=== PATIENT | male | born 1975 | race Caucasian/White ===

== ENCOUNTER 2021-12-11 14:38 | Outpatient (CLI) | payer OTHER, SELFPAY ==
[2021-12-11 17:11] LABS: Chloride* 105 mmol/L (96-114); Sodium* 141 mmol/L (135-149)
[2021-12-11 17:12] LABS: Potassium* 4.3 mmol/L (3.6-5.1)
[2021-12-11 17:14] LABS: Blood Urea Nitrogen* 16 mg/dL (5-24); Carbon Dioxide* 25 mmol/L (20-32); Creatinine* 1.1 mg/dL (0.5-1.5); Estimated Glomerular Filt Rate 84 ml/min
[2021-12-11 17:15] LABS: Calcium* 9.2 mg/dL (8.4-10.6); Glucose* 81 mg/dL (60-115)
== END 2021-12-11 14:39 | disposition home or self-care (01) ==
LOC: NFLDREF 14:39
PROVIDERS: Visit Provider Family Medicine
DX: Z01.818 Encounter for other preprocedural examination (principal)
CPT/HCPCS: 80048

== ENCOUNTER 2021-12-25 11:57 | Outpatient (REF) | payer OTHER, SELFPAY ==
[2021-12-25 13:01] LABS: SARS PCR* POSITIVE SARS-CoV-2 (Negative)
== END 2021-12-25 11:58 | disposition home or self-care (01) ==
LOC: NPINS 11:57
PROVIDERS: Visit Provider Podiatrist
DX: Z11.52 Encounter for screening for COVID-19 (principal)
CPT/HCPCS: 87635

== ENCOUNTER 2022-02-02 19:40 | Emergency (ER) | payer OTHER, SELFPAY ==
[2022-02-02 19:48] VITALS: BP 131/82; PULSE 100; RESP 18; TEMP 36.3; O2SAT 96
--- NOTE | 2022-02-02 20:02 | ED.GENADULT ---
HPI - General Adult General Chief complaint: Post Op Complication Stated complaint: INFECTED STERI STRIP - POST BACK SURGERY Time Seen by Provider: 02/02/22 19:42 History of Present Illness HPI narrative: Pt is a 47 year old gentleman who had back surgery 12 days ago with both anterior and posterior approach complicated by a CVA postoperatively necessitating a thrombectomy and subsequent aspirin 81 mg daily initiation presents with mild redness at both the anterior and posterior incision sites on his torso. Pt had an implanted pain pump placed to the right of the midline in the last few days with no redness noted. Pt has had only mild redness. No observed swelling. No drainage. No increased pain. No fever, nausea or vomiting. No issues with the sutures/margot. Pt otherwise feeling fine . Related Data Home Medications Medication Instructions Recorded Confirmed dextroamphetamine-amphetamine ER 20 mg PO QDAY 12/10/21 01/05/22 20 mg 24hr capsule,extend release divalproex 250 mg tablet,extended 250 mg PO DAILY 12/10/21 01/05/22 release 24 hr hydroxyzine pamoate 25 mg capsule 25 - 50 mg PO Q6H PRN 12/10/21 01/05/22 cyclobenzaprine 10 mg tablet 10 mg PO TID 12/11/21 01/05/22 tizanidine 2 mg tablet 2 mg PO TID PRN 12/11/21 01/05/22 Previous Rx's Medication Instructions Recorded hydrocodone 10 mg-acetaminophen 1 tab PO BID PRN pain #40 tabs 12/11/21 325 mg tablet Allergies Allergy/AdvReac Type Severity Reaction Status Date / Time No Known Drug Allergies Allergy Verified 01/05/22 11:34 Review of Systems Status of ROS: Reports: 10 or more systems reviewed and unremarkable except as noted in History and below [facility] Medical History Attention deficit hyperactivity disorder (ADHD) Chronic low back pain Knee pain Narcotic dependence Pilonidal cyst with abscess Posttraumatic stress disorder Suicidal ideation Surgical History History of hernia repair History of knee surgery History of spinal surgery History of tonsillectomy Family History Father Acute myocardial infarction Other Heart disease Social History Narrative: Retired, nonsmoker, Marijuana use Smoking Status: Current every day smoker Exam Narrative: Exam Narrative: EXAM GENERAL: Patient appears comfortable and well. EYES: No scleral icterus. ENT: Tympanic membranes and oropharynx normal. THYROID: no thyroid nodules or thyromegaly. LYMPH: No supraclavicular or cervical lymphadenopathy. SKIN: Both incision sites on the thorax are well approximated with no redness or drainage. There does appear to be a small seroma underlying the incision on the posterior incision site. This is not painful and seems to be very localized. No drainage noted. EXT: No dependent lower extremity pedal edema. HEART: Regular rate and rhythm with no murmurs, rubs, or gallops. LUNGS: Clear to auscultation bilaterally with no crackles or wheezes. ABD: Soft, non tender, non distended. PSYCH: Good eye contact, speech is not pressured. Const: Vital Signs, click to edit/add: Vital Signs - 24 hr 02/02/22 19:48 Temperature 97.4 F L Pulse Rate [Left P ulse Oximeter] 100 Respiratory Rate 18 Blood Pressure [Ri ght Upper Arm] 131/82 Pulse Oximetry 96 Oxygen Delivery Me thod Room Air Course Course Hospital Course: Pt seen and examined. Explained to pt and sig other that I do not see any major signs of infection. Vital Signs Vital signs: Initial Vital Signs Temperature 97.4 F L 02/02/22 19:48 Temperature Source Temporal Artery Scan 02/02/22 19:48 Pulse Rate 100 02/02/22 19:48 Pulse Rhythm 02/02/22 19:48 Pulse Strength 0+ Absent 02/02/22 19:48 Respiratory Rate 18 02/02/22 19:48 Blood Pressure 131/82 02/02/22 19:48 Blood Pressure Mean 98 02/02/22 19:48 Blood Pressure Position Sitting 02/02/22 19:48 Pulse Oximetry 96 02/02/22 19:48 Oxygen Delivery Method 02/02/22 19:48 Vital Signs Temperature 97.4 F L 02/02/22 19:48 Pulse Rate 100 02/02/22 19:48 Respiratory Rate 18 02/02/22 19:48 Blood Pressure 131/82 02/02/22 19:48 Pulse Oximetry 96 02/02/22 19:48 Oxygen Delivery Method 02/02/22 19:48 Temperature 97.4 F L 02/02/22 19:48 Pulse Rate 100 02/02/22 19:48 Respiratory Rate 18 02/02/22 19:48 Blood Pressure 131/82 02/02/22 19:48 Pulse Oximetry 96 02/02/22 19:48 Oxygen Delivery Method 02/02/22 19:48 Medical Decision Making MDM Narrative Medical decision making narrative: Pt presents with concern of wound infection. No infective findings seen on exam. Small seroma palpated posteriorly. No drainage. Otherwise normal exam and vital signs. Reassurance offered with return if new symptoms develop. Otherwise pt will keep outpt follow up with surgeon and plan to continue current cares. Differential Diagnosis Differential Diagnosis: Wound infection, normal healing, seroma, surgical complication, cellulitis Discharge Plan Discharge Clinical Impression: Healing wound Patient Disposition: Home, Self-Care Condition: Stable Additional Instructions: Continue current care Follow up with your doctor as scheduled Activity Level: Activity as Tolerated Discharge Diet: Regular Prescriptions: No Action divalproex 250 mg tablet extended release 24 hr 250 mg PO DAILY dextroamphetamine-amphetamine 20 mg capsule,extended release 24hr 20 mg PO QDAY hydroxyzine pamoate 25 mg capsule 25 - 50 mg PO Q6H PRN tizanidine 2 mg tablet 2 mg PO TID PRN cyclobenzaprine 10 mg tablet 10 mg PO TID hydrocodone-acetaminophen 10-325 mg tablet 1 tab PO BID PRN (Reason: pain) Qty: 40 0RF Follow Up/Referrals: Generic,Amb Provider [Primary Care Provider] - Stand Alone Forms: [facility] Info Instructions
== END 2022-02-02 20:20 | disposition home or self-care (01) ==
PROVIDERS: Emergency Provider Internal Medicine
DX: L76.34 Postprocedural seroma of skin and subcutaneous tissue following other procedure (principal)
CPT/HCPCS: 99283

== ENCOUNTER 2022-03-11 09:08 | Outpatient (CLI) | payer OTHER, SELFPAY ==
--- OUTSIDE RECORDS SUMMARY | 2022-03-11 09:11 | XMS_ITS | Continuity of Care Document ---
:1975 Author Organization [facility] Address [place] [address] [place] [address]- Encounter 06/29/21 - 07/01/21 [facility] [address] [place] [address] [address] [place], [place] [address] Encounter Diagnosis DDD (degenerative disc disease), lumbar (Discharge Diagnosis) - 06/29/21 Attending Physician: Miguel A Ryan MD Allergies, Adverse Reactions, Alerts No Known Medication Allergies Assessment and Plan Extracted from: Title: Consult Note Author: Miguel A Ryan MD Date: 06/29/21 1.??DDD (degenerative disc disease), vishnu mbar??(M51.36) Ending??CTA is. ??The risk benefits com plications of surgical [facility] reviewed at length??today with??Drake. ??3 level spinal fusion exposure will be undertaken??the desired time. Ordered: 09145 office o/p new hi 60-74 min (Aurelia ge), Quantity: 1, DDD (degenerative disc disease), lumbar ?? Medications No Known Medications Problem List Condition Effective Dates Status Health Status Informant Anxiety(Confirmed) Active ADHD (attention deficit hyperactivity Active disorder)(Confirmed) Chronic low back pain(Confirmed) Active Lumbar radiculopathy(Confirmed) Active Lumbar disc herniation(Confirmed) 2007 Active Spinal stenosis of lumbar region with Active neurogenic claudication(Confirmed) Diagnosis Diagnosis Type Effective Dates Health Status Clinical In formant Service DDD Discharge 06/29/21 (degenerative Diagnosis disc disease), lumbar Procedures Procedure Date Related Diagnosis Body Site Status History of lumbar laminectomy Completed Nerve stimulator Completed
--- OUTSIDE RECORDS SUMMARY | 2022-03-11 09:11 | XMS_ITS | Continuity of Care Document ---
:1975 Author Organization [facility] Address [place] [id number] [facility], [place] [address] [place] [id number] Encounter 08/14/21 - 08/21/21 [facility] [address] [place] [id number] Allergies, Adverse Reactions, Alerts No Known Medication Allergies Problem List Condition Effective Dates Status Health Status Informant Anxiety(Confirmed) Active ADHD (attention deficit hyperactivity Active disorder)(Confirmed) Chronic low back pain(Confirmed) Active Lumbar radiculopathy(Confirmed) Active Lumbar disc herniation(Confirmed) 2006 Active Spinal stenosis of lumbar region with Active neurogenic claudication(Confirmed) Procedures Procedure Date Related Diagnosis Body Site Status History of lumbar laminectomy Completed Nerve stimulator Completed
[2022-03-11 10:09] LABS: Carboxyhemoglobin* 8.5 % (0.0-5.0)
== END 2022-03-11 09:09 | disposition home or self-care (01) ==
LOC: FBOREF 09:09
PROVIDERS: Visit Provider Family Medicine
DX: T58.91XA Toxic effect of carbon monoxide from unspecified source, accidental (unintentional), initial encounter (principal)
CPT/HCPCS: 82375

== ENCOUNTER 2022-09-12 01:23 | Emergency (ER) | payer OTHER, SELFPAY ==
[2022-09-12 01:33] VITALS: BP 120/71; PULSE 100; RESP 18; TEMP 36.1; O2SAT 95
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
[2022-09-12] MEDS: OxyCODONE/APAP 5-325 TABLET 2 TAB PO (02:01)
--- NOTE | 2022-09-12 03:39 | ED.NURSE ---
pt placed on hospital paper scrubs and socks. pt ambulated to restroom with out incident.
[2022-09-12] MEDS: FAMOTIDINE 20 MG TABLET 40 MG PO (03:49)
[2022-09-12 03:55] VITALS: BP 126/71; PULSE 92; RESP 16; O2SAT 99
== END 2022-09-12 03:57 ==
PROVIDERS: Emergency Provider Family Medicine; PCP Family Medicine
DX: M54.30 Sciatica, unspecified side (principal); M54.50 Low back pain, unspecified; T14.8XXA Other injury of unspecified body region, initial encounter
CPT/HCPCS: 72100; 73660; 99284; A9270

== ENCOUNTER 2023-04-26 12:28 | Outpatient (CLI) | payer OTHER, SELFPAY ==
--- OUTSIDE RECORDS SUMMARY | 2023-04-26 12:46 | XMS_ITS | Continuity of Care Document ---
Author Name [facility] Organization [facility] Care Team Providers Care Tax Specialist Name Role Phone [facility] Unavailable Unavailable Problems Combined list of problems from Department of Defense and Veterans Affairs facilities. It does not include entries that were removed or entered in error. Problem Status Onset Date Problem Type Date of Resolution Comments Source Adult attention deficit hyperactivity disorder Active Condition [facility] Anxiety Active Condition [facility] Arthropathy of lumbar facet joint Active Condition September 01, 2015 Entered By: ADRI BURDICK Comment: 05/26 MRI: mild L2-4 mod L4-S1 [facility] Astigmatism, regular (ICD-9-CM 367.21) Active Condition [facility] Attention deficit hyperactivity disorder, predominantly inattentive type Active Condition [facility] Benign essential hypertension [facility] Bipolar II disorder Active Condition Jul 17, 2020 Entered By: SHWETHA SALGADO Comment: Depressed Phase [facility] Cannabis Dependence-Episod ic Active Condition [facility] Carpal tunnel syndrome (SNOMED CT 19710347) [facility] Condition [facility] Cerebrovascular accident Active Condition Jun 24, 2022 Entered By: MELVI WINSTON Comment: acute ischemic stroke while hospitalized for lumbar spinal fusion [facility] Chronic pain syndrome Active Condition 01/19/2018 [facility] Degeneration of lumbar intervertebral disc Active Condition September 01, 2015 Entered By: ADRI BURDICK Comment: 05/26 MRI L3-4 and L4-5 moderate bilat N.F.; L5-S1 mild left N.FJul 2016 Entered By: ADRI BURDICK Comment: 06/25 MRI HNP L2-3 and L3-4 with mod left N.F and mild right N.F, disc bulge L4-5 with mod bilateral N.F. and facet at L5-S1 with mod right N.F.Jul 20, 2016 Entered By: ADRI BURDICK Comment: 07/26 epiduralJul 2018 Entered By: ADRI BURDICK Comment: 06/26 Lumbar spinal stimulator, [facility], Cat Prabhakar 2018 Entered By: ADRI BURDICK Comment: 01/26 stimulator help baseline pain but not flare ups [facility] Depressive disorder Active Condition [facility] Dyspnea on exertion Active Condition [facility] Ganglion cyst removal, left hand, 2018, [facility] Active Condition [facility] History of alcohol abuse (SNOMED CT 495022901) Active Condition [facility] History of lumbar fusion Active Condition Jun 24, 2022 Entered By: MELVI WINSTON Comment: done in Jan 2022, lumbar fusion and laminectomy [facility] Hyperopia * (ICD-9-CM 367.0) Active Condition [facility] L3-4 and L4-5 laminectomy for lumbar spinal stenosis, 2007 Active Condition Apr 05, 2013 Entered By: ADRI BURDICK Comment: MRI 2011 no further stenosis or nerve impingment [facility] Lumbar Radiculopathy (ICD-9-CM 724.4) Active Condition [facility] Medial collateral ligament surgery, 2006 Active Condition [facility] Mixed hyperlipidemia Active Condition [facility] Obesity (SNOMED CT 621696694) Active Condition [facility] Obstructive Sleep Apnea of Adult (SCT 4225617889641) Active Condition August 31, 2022 Entered By: LATHA BURNS Comment: resmed airsense s10 CPAP 13 =, N20 [facility] Obstructive sleep apnea syndrome Active Condition Apr 05, 2013 Entered By: ADRI BURDICK Comment: cpap [facility] OIF EXPOSURE TO DEPLETED URANIUM (MIA1 LORD TANKS/TANK GRAVEYARDS) Active Condition [facility] OIF EXPOSURE TO IED EXPLOSION (FALLUJAH, [place] 2004) Active Condition [facility] OIF EXPOSURE TO JUAN CARLOS-8 FUEL Active Condition [facility] OIF EXPOSURE TO OPEN BURN PIT SMOKE Active Condition [facility] OIF EXPOSURE TO SANDSTORMS AND DUSTSTORMS Active Condition [facility] Other Signs and Symptoms Involving Cognition Active Condition [facility] Outbursts of anger Active Condition [facility] Pain, Lower Back [facility] Partner relationship problem Active Condition [facility] Post-traumatic stress disorder Active Condition [facility] Posttraumatic stress disorder (SNOMED CT 61277324) Active Condition [facility] Pre-Op Exam Active Condition [facility] Sensorineural hearing loss Active Condition [facility] Sexual Dysfunction Active Condition [facility] Solitary nodule of lung Active Condition Jan 24, 2018 Entered By: ADRI BURDICK Comment: 01/26 CT 4mm right lung apex, 3mm ELZA and 2mm LLL; f/u 1 2018 Entered By: ADRI BURDICK Comment: 01/27 CT stable [facility] Spinal stenosis of lumbar region Active Condition August 31 6 Entered By: ADRI BURDICK Comment: 05/26 MRI moderate L2-3 from disc degeneration [facility] Spinal Stenosis, Lumbar Active Condition [facility] Tinnitus Active Condition [facility] Tobacco use (SNOMED CT 600156610) Active Condition Apr 05, 2013 Entered By: ADRI BURDICK Comment: 2011 [place] nancy and chantix, dc'd due to dreams [facility] anxiety Active Condition [facility] astigmatism regular Active Condition [facility] acquired deformity of hip Active Condition [facility] leukocytosis Active Condition [facility] benzodiazepine withdrawal Active Condition [facility] blurry vision Active Condition [facility] headache syndromes Inactive Condition [facility] visit for: issue repeat prescription for medication Inactive Condition [facility] nonorganic sleep apnea obstructive Active Condition [facility] Aftercare Orthopedic Active Condition [facility] muscle spasm Inactive Condition [facility] Aftercare Following Surgery Active Condition [facility] visit for: administrative purpose Inactive Condition [facility] Patient Education Dietary Inactive Condition [facility] visit for: preoperative orthopedic exam Inactive Condition [facility] visit for: follow-up exam Inactive Condition [facility] knee sprain medial collateral ligament Inactive Condition [facility] mood disorder due to general medical condition Active Condition [facility] numbness (hypesthesia) Active Condition [facility] Brace Inactive Condition [facility] joint pain, localized in the knee Active Condition [facility] partner relational problem Active Condition [facility] occupational problem Inactive Condition [facility] chronic post-traumatic stress disorder Active Condition [facility] major depression, single episode Active Condition [facility] esophageal reflux Active Condition f/u prn DoD intervertebral disc degeneration - lumbar Active Condition This pt has a definite problem but I do not feel I can make him better with surgery. I am concerned about his age and multilevel nature of his problem. 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 Surgery is not an option by me. P3 given and MEB initiated. DoD visit for: fitting and adjustment of device Inactive Condition [facility] hyperlipidemia Active Condition f/vishnu in 4-6 weeks for repeat lipids. DoD chest pain Active Condition [facility] tinnitus both ears Active Condition [facility] sensorineural hearing loss asymmetrical Active Condition AD>: AD moder ate 4-6 KHz, mild 4 KHz: pattern AU c/w NIHL; normal ME Fx AU; Excellent word recognition AU; H2 profile; DPOAEs c/w audio and cochlear OHC deficit, which is probable etiology of tinnitus DoD anxiety disorder NOS Active Condition (with PTSD raj ts), however he does not meet full criteria to warrant this Dx at this time.SM reported that he tends to have intrusive thoughts such as nightmares of war-time experiences, which causes him to wake up sweating and some distress. SM reported that he feels more irritable than usual, avoid the right héctor and would drive in the middle of the highway (reported that this action has decreased), a decrease in sleep (which began in [place]), difficulty concentrating, and an increase in feelings of sadness. DoD heartburn Active Condition f/u prn DoD refractive error - hypermetropia Active Condition [facility]D hearing loss Active Condition TSGLI p aperwork completed for multiple exposures and HFNSHL documented in June 2006. DoD radiculopathy Active Condition DoD urinary frequency more than twice at night (nocturia) Active Condition DoD male erectile disorder Active Condition DoD insomnia Active Condition will make no changes suchs as adding TCA due to use of valium and percocet. Will consider change once seen by pain mgmt. DoD nicotine dependence Active Condition not interested at present. DoD discogenic syndrome Active Condition Discussed TABATHA f or painPlan for LESIPt to have call to discuss procedurePt may need discogram. Will do if NS requests DoD hypertension systemic Active Condition DoD lumbago Active Condition DoD assess patient condition work-related occupational disease Inactive Condition DoD depression Active Condition increased to 150 mg qd DoD visit for: exam following treatment Inactive Condition DoD backache Active Condition DoD Other Physical Therapy Active Condition [facility] assessment of patient condition work-related Active Condition [facility] visit for: physical medical evaluation board (MEB) Active Condition DoD joint pain fingers Active Condition [facility] Occupational Therapy Inactive Condition [facility] Need For Vaccination Against Influenza Inactive Condition DoD visit for: screening exam pulmonary tuberculosis Inactive Condition DoD Blood Pressure Isolated Elevated Inactive Condition f/u in 2 w eeks. Pt reports several months of elevated BP. DoD phase of life or life circumstance problem Active Condition [facility] assessment of patient condition work status Inactive Condition DoD visit for: screening mental / developmental disorders Inactive Condition TBI REVIEWED AN D NEG DoD visit for: services physical Active Condition [facility] Patient Education Active Condition DoD nicotine dependence continuous Active Condition DoD lower back pain Active Condition DoD spinal stenosis Active Condition L3-4 and L4-5 DoD lumbar radiculopathy Active Condition Consult for [facility] Pain managment to eval for Spinal Cord StimulatorLidoderm patch NDR request madeConsider inc lyricaConsider LA opioid based on perocet demandPt to f/u with PCM for continued care DoD herniated intervertebral disc lumbar Active Condition DoD intervertebral disc degeneration Active Condition continue w ith diazepam, mobic, lidoderm patch, mobic, and lyrica. DoD herniated intervertebral disc Active Condition pt being seen a t [facility], has received injections and nerve block; Will return on 01 November 2006, may get spinal stimulator. DoD tendonitis extensor hallucis longus right Active Condition pt unable to tolerated ibuprofen due to GI effects after 1-2 doses. DoD carpal tunnel syndrome Active Condition f/u prn. OT con sult placed. DoD visit for: issue repeat prescription Inactive Condition DoD dermatophytosis tinea pedis Inactive Condition keep feet dry DoD callus Active Condition [facility] Diagnosis: ICD-10-CM Z23 Encounter for immunization Active Diagnosis [facility] Diagnosis: ICD-10-CM Z98.1 Arthrodesis status Active Diagnosis [facility] Diagnosis: ICD-10-CM S84.12XS Injury of peroneal nrv at lower leg level, left leg, sequela Active Diagnosis [facility] Diagnosis: ICD-10-CM F43.10 Post-traumatic stress disorder, unspecified Active Diagnosis [facility] Diagnosis: ICD-10-CM M51.17 Intvrt disc disorders w radiculopathy, lumbosacral region Active Diagnosis [facility] Diagnosis: ICD-10-CM M54.50 Low back pain, unspecified Active Diagnosis [facility] Diagnosis: ICD-10-CM G47.33 Obstructive sleep apnea (adult) (pediatric) Active Diagnosis [facility] Diagnosis: ICD-10-CM E66.9 Obesity, unspecified Active Diagnosis [facility] Diagnosis: ICD-10-CM I63.9 Cerebral infarction, unspecified Active Diagnosis [facility] Diagnosis: ICD-10-CM M25.512 Pain in left shoulder Active Diagnosis [facility] Diagnosis: ICD-10-CM M54.59 Other low back pain Active Diagnosis [facility] Diagnosis: ICD-10-CM F41.9 Anxiety disorder, unspecified Active Diagnosis [facility] Medications Combined list of outpatient medications from Department of Defense and Veterans Affairs facilities.Medications provided include 1) outpatient medications from the last 15 months, and 2) patient-reported medications. Medication Details Route Status Patient Instructions Prescription Expires Prescription Number Last Dispense Date Ordering Provider Order Date Source ACETAMINOPH EN 500MG TAB TAKE TWO TABLETS BY MOUTH Q6H PRN ORALLY ACTIVE CATRACHITOMALIK 2022 [facility] Alkets or Eq. Tablet Chewable 500 mg Oral CHEW ONE TABLET BY MOUTH TWICE A DAY FOR CALCIUM SUPPLEME NT Active 06/25/2023 [id number] MELVI WINSTON 2023 [facility] Amphetamine Aspartate 7.5mg + Amphetamine Sulfate 7.5mg + Dextroamphe tamine Sulfate 7.5mg + Dextroamphe tamine saccharate 7.5mg, Tablet, Oral TAKE ONE TABLET BY MOUTH TWICE A DAY FOR ATTENTIO N 02/09/2023 [id number] 3 OMER KLINE 2022 [facility] Amphetamine Aspartate 7.5mg + Amphetamine Sulfate 7.5mg + Dextroamphe tamine Sulfate 7.5mg + Dextroamphe tamine saccharate 7.5mg, Tablet, Oral TAKE ONE TABLET BY MOUTH TWICE A DAY FOR ATTENTIO N Discont inued 01/15/2023 [id number] 3 OMER KLINE 2022 [facility] Amphetamine Aspartate 7.5mg + Amphetamine Sulfate 7.5mg + Dextroamphe tamine Sulfate 7.5mg + Dextroamphe tamine saccharate 7.5mg, Tablet, Oral TAKE ONE TABLET BY MOUTH TWICE A DAY FOR ATTENTIO N 12/22/2022 [id number] ALLYSON MORALES 2022 [facility] AMPHETAMINE /DEXTROAMPH ETAMINE 30MG TAB TAKE ONE TABLET BY MOUTH TWICE A DAY FOR ATTENTIO N ORALLY DISCONT INUED 02/09/2023 [id number] 3 CLARIBEL TRAORE 2022 [facility] AMPHETAMINE /DEXTROAMPH ETAMINE 30MG TAB TAKE ONE TABLET BY MOUTH TWICE A DAY FOR ATTENTIO N ORALLY DISCONT INUED 01/15/2023 [id number] CLARIBEL TRAORE 2022 [facility] AMPHETAMINE /DEXTROAMPH ETAMINE 30MG TAB TAKE ONE TABLET BY MOUTH TWICE A DAY FOR ATTENTIO N ORALLY DISCONT INUED 12/22/2022 [id number] ALLYSON MORALES 2022 [facility] AMPHETAMINE /DEXTROAMPH ETAMINE 30MG TAB TAKE ONE TABLET BY MOUTH TWICE A DAY ORALLY DISCONT INUED 09/22/2022 [id number] KALEIGH AMAYA 2022 [facility] AMPHETAMINE /DEXTROAMPH ETAMINE 30MG TAB TAKE ONE TABLET BY MOUTH TWICE A DAY FOR ATTENTIO N ORALLY 11/19/2022 [id number] CLARIBEL TRAORE 2022 [facility] AMPHETAMINE /DEXTROAMPH ETAMINE 30MG TAB TAKE ONE TABLET BY MOUTH TWICE A DAY FOR ATTENTIO N ORALLY 10/15/2022 [id number] CLARIBEL TRAORE 2022 [facility] AMPHETAMINE /DEXTROAMPH ETAMINE 30MG TAB TAKE ONE TABLET BY MOUTH TWICE A DAY ORALLY 08/08/2022 [id number] CLARIBEL TRAORE 2022 [facility] AMPHETAMINE /DEXTROAMPH ETAMINE 30MG TAB TAKE ONE TABLET BY MOUTH TWICE A DAY ORALLY 06/19/2022 [id number] CLARIBEL TRAORE 2022 [facility] ASPIRIN 81MG TAB,EC TAKE ONE TABLET BY MOUTH EVERY DAY FOR ISCHEMIC STROKE DO NOT CHEW ORALLY SUSPEND ED 12/16/2023 [id number] MARK BRIGGS A 2022 [facility] ASPIRIN 81MG TAB,EC TAKE ONE TABLET BY MOUTH EVERY DAY FOR ISCHEMIC STROKE DO NOT CHEW ORALLY DISCONT INUED 06/25/2023 [id number] MALIK WINSTON 2022 [facility] ASPIRIN EC (U/D) 81 MG ORAL TBEC TAKE ONE TABLET BY MOUTH EVERY DAY FOR ISCHEMIC STROKE DO NOT CHEW Active 12/16/2023 [id number] ISREAL BRIGGS 2023 [facility] ASPIRIN EC (U/D) 81 MG ORAL TBEC TAKE ONE TABLET BY MOUTH EVERY DAY FOR ISCHEMIC STROKE DO NOT CHEW Active 12/16/2023 [id number] 3 ISREAL BRIGGS 2022 [facility] ASPIRIN EC (U/D) 81 MG ORAL TBEC TAKE ONE TABLET BY MOUTH EVERY DAY FOR ISCHEMIC STROKE DO NOT CHEW Discont inued 06/25/2023 [id number] MELVI WINSTON 2022 [facility] ASPIRIN EC (U/D) 81 MG ORAL TBEC TAKE ONE TABLET BY MOUTH EVERY DAY FOR ISCHEMIC STROKE DO NOT CHEW Active 06/25/2023 [id number] MELVI WINSTON 2022 [facility] atorvastati n (U/D) 80 MG ORAL TAB TAKE ONE TABLET BY MOUTH AT BEDTIME FOR CHOLESTE ROL Active 06/25/2023 [id number] 4 MELVI WINSTON 2023 [facility] ATORVASTATI N CA 80MG TAB TAKE ONE TABLET BY MOUTH AT BEDTIME FOR CHOLESTE ROL ORALLY ACTIVE 06/25/2023 [id number] MALIK WINSTON 2022 [facility] Baclofen (Lioresal) Tablet 10 mg Oral TAKE ONE TABLET BY MOUTH TWICE A DAY FOR MUSCLE SPASMS Active 12/16/2023 [id number] 4 ISREAL BRIGGS 2023 [facility] BACLOFEN 10MG TAB TAKE ONE TABLET BY MOUTH TWICE A DAY FOR MUSCLE SPASMS ORALLY SUSPEND ED 12/16/2023 [id number] 4 MARK BRIGGS ER A 2022 [facility] BACLOFEN 10MG TAB TAKE ONE TABLET BY MOUTH THREE TIMES A DAY NEEDED ORALLY ACTIVE MALIK WINSTON 2021 [facility] BISACODYL 5MG TAB,EC TAKE TWO TABLETS BY MOUTH DIRECTED FOR COLON PREP ORALLY 08/08/2022 [id number] 3 RAFI OMSLEY TTANY L 2022 [facility] buPROPion (ZYBAN EQ) 150 MG ORAL TB12 TAKE ONE TABLET BY MOUTH TWICE A DAY FOR WEIGHT LOSS Active 11/05/2023 [id number] 3 NICOLASA HULL 2022 [facility] buPROPion (ZYBAN EQ) 150 MG ORAL TB12 TAKE ONE TABLET BY MOUTH EVERY DAY FOR 3 DAYS, THEN TAKE ONE TABLET TWICE A DAY FOR WEIGHT LOSS Discont inued 11/05/2023 [id number] 3 NICOLASA HULL 2022 [facility] BUPROPION HCL 150MG 12HR TAB,SA TAKE ONE TABLET BY MOUTH TWICE A DAY FOR WEIGHT LOSS ORALLY ACTIVE 11/05/2023 [id number] 3 NICOLASA HULL 2022 [facility] BUPROPION HCL 150MG 12HR TAB,SA TAKE ONE TABLET BY MOUTH EVERY DAY FOR 3 DAYS, THEN TAKE ONE TABLET TWICE A DAY FOR WEIGHT LOSS ORALLY DISCONT INUED 11/05/2023 [id number] 3 NICOLASA HULL 2022 [facility] CALCIUM CARBONATE 500MG TAB,CHEWABL E CHEW ONE TABLET BY MOUTH TWICE A DAY FOR CALCIUM SUPPLEME NT ORALLY ACTIVE 06/25/2023 [id number] MALIK WINSTON 2022 [facility] CHOLECALCIF (VIT D3) 1,000 UNIT ORAL TAB TAKE ONE TABLET BY MOUTH EVERY DAY FOR VITAMIN D Active 06/25/2023 [id number] 4 MELVI WINSTON 2023 [facility] CHOLECALCIF JET 25MCG (1,000UNIT) TAB TAKE ONE TABLET BY MOUTH EVERY DAY FOR VITAMIN D ORALLY ACTIVE 06/25/2023 [id number] MALIK WINSTON NA 2022 [facility] DIVALPROEX NA 500MG TAB,SA TAKE TWO TABLETS BY MOUTH AT BEDTIME FOR MOOD ORALLY ACTIVE 07/10/2023 [id number] CLARIBEL TRAORE 2022 [facility] DIVALPROEX NA 500MG TAB,SA TAKE TWO TABLETS BY MOUTH AT BEDTIME FOR MOOD ORALLY DISCONT INUED 12/08/2022 [id number] CLARIBEL TRAORE 2021 [facility] divalproex sodium ER (U/D) 500MG PO TB24 TAKE TWO TABLETS BY MOUTH AT BEDTIME FOR MOOD Active 07/10/2023 [id number] OMER KLINE 2022 [facility] divalproex sodium ER (U/D) 500MG PO TB24 TAKE TWO TABLETS BY MOUTH AT BEDTIME FOR MOOD 12/08/2022 [id number] OMER KLINE 2022 [facility] Fluoxetine (Prozac) Capsule Conventiona l 20 mg Oral TAKE TWO CAPSULES BY MOUTH EVERY DAY FOR MOOD, FOR ANXIETY Active 02/15/2024 [id number] OMER KLINE 2023 [facility] Fluoxetine (Prozac) Capsule Conventiona l 20 mg Oral TAKE TWO CAPSULES BY MOUTH EVERY DAY FOR MOOD, FOR ANXIETY Active 07/10/2023 [id number] OMER KLINE 2022 [facility] Fluoxetine (Prozac) Capsule Conventiona l 20 mg Oral TAKE TWO CAPSULES BY MOUTH EVERY DAY FOR MOOD, FOR ANXIETY 12/18/2022 [id number] OMER KLINE 2022 [facility] FLUOXETINE HCL 20MG CAP TAKE TWO CAPSULES BY MOUTH EVERY DAY FOR MOOD, FOR ANXIETY ORALLY ACTIVE 02/15/2024 [id number] 4 CLARIBEL TRAORE B 2022 [place] [facility] FLUOXETINE HCL 20MG CAP TAKE TWO CAPSULES BY MOUTH EVERY DAY FOR MOOD, FOR ANXIETY ORALLY DISCONT INUED 07/10/2023 [id number] CLARIBEL TRAORE B 2022 [facility] FLUOXETINE HCL 20MG CAP TAKE TWO CAPSULES BY MOUTH EVERY DAY FOR MOOD, FOR ANXIETY ORALLY DISCONT INUED 12/18/2022 [id number] CLARIBEL TRAORE B 2021 [place] [facility] IRX: Sildenafil 100 mg/Placebo Tablet Oral TAKE ONE TABLET BY MOUTH NEEDED FOR ERECTILE DYSFUNCT ION Active 12/16/2023 [id number] ISREAL BRIGGS 2023 [place] [facility] [facility] METHOCARBAM OL 750MG TAB TAKE ONE TABLET BY MOUTH TWICE A DAY NEEDED ORALLY ACTIVE MALIK WINSTON 2022 [facility] METHYLPHENI DATE HCL (EQV-CONCER TA) 36MG TAB,SA TAKE TWO TABLETS BY MOUTH EVERY MORNING FOR ATTENTIO N ORALLY ACTIVE 05/20/2023 [id number] CLARIBEL TRAORE B 2023 [facility] METHYLPHENI DATE HCL (EQV-CONCER TA) 36MG TAB,SA TAKE ONE TABLET BY MOUTH EVERY MORNING FOR ATTENTIO N ORALLY DISCONT INUED (EDIT) 02/20/2023 [id number] CLARIBEL TRAORE B 2022 [facility] METHYLPHENI DATE HCL (EQV-CONCER TA) 36MG TAB,SA TAKE TWO TABLETS BY MOUTH EVERY MORNING FOR ATTENTIO N ORALLY 04/14/2023 [id number] CLARIBEL TRAORE B 2022 [facility] METHYLPHENI DATE HCL (EQV-CONCER TA) 36MG TAB,SA TAKE TWO TABLETS BY MOUTH EVERY MORNING FOR ATTENTIO N ORALLY 03/03/2023 [id number] CLARIBEL TRAORE B 2022 [facility] METHYLPHENI DATE HCL (EQV-CONCER TA) 54MG TAB,SA TAKE ONE TABLET BY MOUTH EVERY MORNING FOR ATTENTIO N ORALLY DISCONT INUED (EDIT) 02/26/2023 [id number] 3 CLARIBEL TRAORE 2022 [place] [facility] Methylpheni date Hydrochlori de (Concerta Eq.) Tablet Extended Release 36 mg Oral TAKE TWO TABLETS BY MOUTH EVERY MORNING FOR ATTENTIO N Active 05/20/2023 [id number] OMER KLINE 2023 [facility] M[facility]i date Hydrochlori de (Concerta Eq.) Tablet Extended Release 36 mg Oral TAKE TWO TABLETS BY MOUTH EVERY MORNING FOR ATTENTIO N 04/14/2023 [id number] OMER KLINE 2023 [facility] Methylpheni date Hydrochlori de (Concerta Eq.) Tablet Extended Release 36 mg Oral TAKE TWO TABLETS BY MOUTH EVERY MORNING FOR ATTENTIO N 03/03/2023 [id number] OMER KLINE 2022 [facility] Methylpheni date Hydrochlori de (Concerta Eq.) Tablet Extended Release 54 mg Oral TAKE ONE TABLET BY MOUTH EVERY MORNING FOR ATTENTIO N Discont inued 02/26/2023 [id number] OMER KLINE 2022 [facility] Oxycodone (Oxy IR Eq.) Tablet 5 mg Oral TAKE ONE TABLET BY MOUTH EVERY 4 HOURS NEEDED FOR PAIN 01/14/2023 [id number] 3 [facility]GS [facility] OXYCODONE HCL (OXYCODONE HCL), 5MG, TABLET, ORAL, MALLINKRT PHARM, 100 ea. BOTTLE Active [id number] 2023 [facility] OXYCODONE HCL 5MG TAB TAKE ONE TABLET BY MOUTH EVERY 4 HOURS NEEDED FOR PAIN ORALLY 01/14/2023 [id number] 3 MARK BRIGGS ER A 2022 [place] [facility] OXYCODONE HCL 5MG TAB TAKE TWO TABLETS BY MOUTH AT BEDTIME NEEDED ORALLY ACTIVE MALIK WINSTON NA 2022 [facility] PEG-3350/EL ECTROLYTES PWDR TAKE ONE CONTAINE R BY MOUTH DIRECTED FOR COLON PREP ORALLY 08/08/2022 [id number] RAFI MOSLEY TTANY L 2022 [facility] PROPRANOLOL HCL 10MG TAB TAKE ONE TO TWO TABLETS BY MOUTH TWICE A DAY NEEDED FOR ANXIETY ORALLY DISCONT INUED (EDIT) 12/18/2022 [id number] CLARIBEL TRAORE 2021 [facility] PROPRANOLOL HCL 20MG TAB TAKE ONE TABLET BY MOUTH TWICE A DAY FOR ANXIETY ORALLY DISCONT INUED 07/10/2023 [id number] CLARIBEL TRAORE B 2022 [facility] PROPRANOLOL HCL 80MG CAP,SA TAKE ONE CAPSULE BY MOUTH EVERY MORNING FOR ANXIETY ORALLY ACTIVE 10/21/2023 [id number] 3 CLARIBEL TRAORE 2022 [facility] Propranolol Hydrochlori de (Inderal) Tablet 10 mg Oral TAKE ONE TO TWO TABLETS BY MOUTH TWICE A DAY NEEDED FOR ANXIETY 12/18/2022 [id number] OMER KLINE 2022 [facility] SILDENAFIL CITRATE 100MG TAB TAKE ONE TABLET BY MOUTH NEEDED FOR ERECTILE DYSFUNCT ION ORALLY SUSPEND ED 12/16/2023 [id number] 4 MARK BRIGGS ER A 2022 [facility] TRAZODONE HCL 100MG TAB TAKE ONE-HALF TO ONE TABLET BY MOUTH AT BEDTIME FOR SLEEP ORALLY ACTIVE 02/15/2024 [id number] CLARIBEL TRAORE 2022 [facility] Trazodone Hcl, 100mg, Tablet, Oral TAKE ONE-HALF TO ONE TABLET BY MOUTH AT BEDTIME FOR SLEEP Active 02/15/2024 [id number] OMER KLINE 2023 [facility] Allergies, Adverse Reactions, Alerts Combined list of allergies from Department of [facility] and [facility] facilities. It does not include entries that were removed or entered in error. Substance Category Reaction Severity Reaction type Status Date Reported Comments Source DULOXETINE Propensity to adverse reactions to drug (finding) Altered mental status active 7 [facility] Duloxetine Analogues Drug allergy (disorder) Altered mental status active 7 [facility] Hydrocodone Drug allergy (disorder) Nausea, Abdominal pain active 9 [facility] HYDROCODONE/ ACETAMINOPHE N TABS Propensity to adverse reactions to drug (finding) Nausea, Abdominal pain active 9 [facility] Morphine Drug allergy (disorder) Nausea active 7 [facility] MORPHINE Propensity to adverse reactions to drug (finding) Nausea active 7 [facility] TRILEPTAL (OXCARBAZEPI NE) Drug allergy (disorder) Other Reaction, Other: bad taste in mouth active 7 [facility] VICODIN Propensity to adverse reactions to drug (finding) Abdominal pain, Abdominal discomfort active 4 [facility] Immunizations Combined list of available immunizations from the Department of [facility] and [facility] facilities. Immunization Series Date Given Administered By Site Reaction Lot Number CVX Code Drug Assistant Professor Of Business Status Comments Source INFLUENZA, INJECTABLE, QUADRIVALENT, PRESERVATIVE FREE 2022 DINAH MIRAMONTES LEFT DELTO ID [id number] A 150 complet ed [facility] PNEUMOCOCCAL CONJUGATE PCV20, POLYSACCHARID E [id number] CONJUGATE, ADJUVANT, PF 2022 MICHELLE BEARDEN RIGHT DELTO ID [id number] 216 complet ed [facility] TDAP 2022 MICHELLE BEARDEN LEFT DELTO ID [id number] 115 complet ed [facility] INFLUENZA, UNSPECIFIED FORMULATION 2021 88 complet ed [facility] INFLUENZA, UNSPECIFIED FORMULATION 2020 88 complet ed [facility] INFLUENZA, UNSPECIFIED FORMULATION 2020 88 complet ed [facility] influenza, injectable, quadrivalent, preservative free 2019 [place], () Not Given influenza , injectabl e, quadrival ent, preservat adelaida free [facility] influenza, injectable, quadrivalent 2018 ALIZA HUMPHREY () Not Given influenza , injectabl e, quadrival ent [facility] INFLUENZA, SEASONAL, INJECTABLE 2018 141 complet ed [facility] INFLUENZA, INJECTABLE, QUADRIVALENT, PRESERVATIVE FREE 2017 150 complet ed [facility] PNEUMOCOCCAL CONJUGATE PCV 13 2017 133 complet ed wyeth/w11 [facility] INFLUENZA, SEASONAL, INJECTABLE 2016 141 complet ed [facility] influenza, injectable, quadrivalent 2015 JOJO HATCH () Not Given influenza , injectabl e, quadrival ent [facility] INFLUENZA, SEASONAL, INJECTABLE 2015 141 complet ed [facility] INFLUENZA, SEASONAL, INJECTABLE 2014 141 complet ed [facility] INFLUENZA, UNSPECIFIED FORMULATION 2013 88 complet ed [facility] TDAP 2012 NONE 115 complet ed [facility] INFLUENZA, UNSPECIFIED FORMULATION 2011 88 complet ed [facility] PNEUMOCOCCAL, UNSPECIFIED FORMULATION 2010 109 complet ed MERCK/129 5Z/ 012 [facility] INFLUENZA, UNSPECIFIED FORMULATION 2009 88 complet ed [facility] NOVEL INFLUENZA-H1N 1-09, ALL FORMULATIONS 2009 128 complet ed [employer] [facility] INFLUENZA, UNSPECIFIED FORMULATION 2008 88 complet ed [facility] INFLUENZA, UNSPECIFIED FORMULATION 2007 NONE 88 complet ed [id number] a october 17 [facility] influenza virus vaccine, live, attenuated, for intranasal use 1 2006 [id number] [employer] ([employer] (MED) complet ed influenza virus vaccine, live, attenuate d, for intranasa l use [facility] influenza virus vaccine, split virus (incl. purified surface antigen)-reti red CODE 1 2006 [id number] 15 Unknown (UNK) comple t ed influenza virus vaccine, split virus (incl. purified surface antigen)- retired CODE DoD anthrax vaccine 3 2005 [id number] Constance (BP) complet ed anthrax vaccine DoD hepatitis A and hepatitis B vaccine 3 2005 [id number] 104 [employer] (SKB) complet ed hepatitis A and hepatitis B vaccine DoD anthrax vaccine 2 2004 [id number] 24 [employer] ([facility]) complet ed anthrax vaccine DoD anthrax vaccine 1 2004 [id number] 24 [employer] ([facility]) complet ed anthrax vaccine DoD vaccinia (smallpox) vaccine 1 2004 [id number] Babs (WAL) complet ed vaccinia (smallpox ) vaccine DoD typhoid Vi capsular polysaccharid e vaccine 1 2004 [id number] Sanofi Pasteur (PMC) complet ed typhoid Vi capsular polysacch aride vaccine DoD influenza virus vaccine, split virus (incl. purified surface antigen)-reti red CODE 1 2004 UNK 15 [employer] (AVB) complet ed influenza virus vaccine, split virus (incl. purified surface antigen)- retired CODE DoD hepatitis A and hepatitis B vaccine 2 2004 [id number] 104 [employer] (SKB) complet ed hepatitis A and hepatitis B vaccine DoD varicella virus vaccine 1 2004 NONE 21 (NON) Not Given varicella virus vaccine DoD tetanus and diphtheria toxoids, adsorbed, preservative free, for adult use (2 Lf of tetanus toxoid and 2 Lf of diphtheria toxoid) 1 2004 [id number] 09 Sanofi Pasteur (PMC) complet ed tetanus and diphtheri a toxoids, adsorbed, preservat adelaida free, for adult use (2 Lf of tetanus toxoid and 2 Lf of diphtheri a toxoid) DoD poliovirus vaccine, inactivated 1 2004 [id number] 10 Sanofi Pasteur (PMC) complet ed polioviru s vaccine, inactivat ed DoD meningococcal polysaccharid e vaccine (MPSV4) 1 2004 [id number] Sanofi Pasteur (PMC) complet ed meningoco ccal polysacch aride vaccine (MPSV4) DoD hepatitis A and hepatitis B vaccine 1 2004 [id number] 104 [employer] (SKB) complet ed hepatitis A and hepatitis B vaccine DoD influenza virus vaccine, live, attenuated, for intranasal use 1 2004 [id number] 111 Voxel ([employer] (MED) complet ed influenza virus vaccine, live, attenuate d, for intranasa l use DoD TD(ADULT) UNSPECIFIED FORMULATION 2004 139 complet ed [facility] Results Combined list of recent chemistry, hematology and other laboratory results from Department of Defense and Veterans Affairs, ranging from 15 months to all on record, depending upon the facility. Order Name Results Value Reference Range Date Interpretation Specimen Comments Source CBC & DIFF LEUKOCYTES [#/VOLUME] IN BLOOD BY AUTOMATED COUNT 8.63 4.0 - 11.0 12/15 Specimen Type: BLOOD Comment: Automated Differentia l Performed Ordering Provider: ISREAL BRIGGS Report Released Date/Time: Dec 15, 2022 11:19 AM Reporting Lab: [facility] [address] Performing Lab: [facility] [address] [place] [facility] CBC & DIFF ERYTHROCYT ES [#/VOLUME] IN BLOOD BY AUTOMATED COUNT 4.54 4.6 - 6.2 12/15 L Specimen Type: BLOOD Comment: Automated Differentia l Performed Ordering Provider: ISREAL BRIGGS Report Released Date/Time: Dec 15, 2022 11:19 AM Reporting Lab: [facility] [address] Performing Lab: [facility] [address] [place] [facility] CBC & DIFF HEMOGLOBIN [MASS/VOLU ME] IN BLOOD 14.5 13.5 - 17.9 12/15 Specimen Type: BLOOD Comment: Automated Differentia l Performed Ordering Provider: ISREAL BRIGGS Report Released Date/Time: Dec 15, 2022 11:19 AM Reporting Lab: [facility] [address] Performing Lab: [facility] [address] [place] [facility] CBC & DIFF HEMATOCRIT [VOLUME FRACTION] OF BLOOD BY AUTOMATED COUNT 44.0 41 - 54 12/15 Specimen Type: BLOOD Comment: Automated Differentia l Performed Ordering Provider: ISREAL BRIGGS Report Released Date/Time: Dec 15, 2022 11:19 AM Reporting Lab: [facility] [address] Performing Lab: [facility] [address] [place] [facility] CBC & DIFF MCV [ENTITIC VOLUME] BY AUTOMATED COUNT 96.9 80 - 100 12/15 Specimen Type: BLOOD Comment: Automated Differentia l Performed Ordering Provider: ISREAL BRIGGS Report Released Date/Time: Dec 15, 2022 11:19 AM Reporting Lab: [facility] [address] Performing Lab: [facility] [address] [place] [facility] CBC & DIFF MCH [ENTITIC MASS] BY AUTOMATED COUNT 31.9 27 - 33 12/15 Specimen Type: BLOOD Comment: Automated Differentia l Performed Ordering Provider: ISREAL BRIGGS Report Released Date/Time: Dec 15, 2022 11:19 AM Reporting Lab: [facility] [address] Performing Lab: [facility] [address] [place] [facility] CBC & DIFF MCHC [MASS/VOLU ME] BY AUTOMATED COUNT 33.0 32.0 - 37.5 12/15 Specimen Type: BLOOD Comment: Automated Differentia l Performed Ordering Provider: ISREAL BRIGGS Report Released Date/Time: Dec 15, 2022 11:19 AM Reporting Lab: [facility] [address] Performing Lab: [facility] [address] [place] [facility] CBC & DIFF PLATELETS [#/VOLUME] IN BLOOD BY AUTOMATED COUNT 302 150 - 400 12/15 Specimen Type: BLOOD Comment: Automated Differentia l Performed Ordering Provider: ISREAL BRIGGS Report Released Date/Time: Dec 15, 2022 11:19 AM Reporting Lab: [facility] [address] Performing Lab: [facility] [address] [place] [facility] CBC & DIFF PLATELET MEAN VOLUME [ENTITIC VOLUME] IN BLOOD BY AUTOMATED COUNT 8.7 7.4 - 10.4 12/15 Specimen Type: BLOOD Comment: Automated Differentia l Performed Ordering Provider: ISREAL BRIGGS Report Released Date/Time: Dec 15, 2022 11:19 AM Reporting Lab: [facility] [address] Performing Lab: [facility] [address] [place] [facility] CBC & DIFF NEUTROPHIL S/100 LEUKOCYTES IN BLOOD BY MANUAL COUNT 49.9 40.0 - 80.0 12/15 Specimen Type: BLOOD Comment: Automated Differentia l Performed Ordering Provider: ISREAL BRIGGS Report Released Date/Time: Dec 15, 2022 11:19 AM Reporting Lab: [facility] [address] Performing Lab: [facility] [address] [place] [facility] CBC & DIFF LYMPHOCYTE S/100 LEUKOCYTES IN BLOOD BY MANUAL COUNT 39.2 15.0 - 45.0 12/15 Specimen Type: BLOOD Comment: Automated Differentia l Performed Ordering Provider: ISREAL BRIGGS Report Released Date/Time: Dec 15, 2022 11:19 AM Reporting Lab: [facility] [address] Performing Lab: [facility] [address] [place] [facility] CBC & DIFF MONOCYTES/ 100 LEUKOCYTES IN BLOOD BY AUTOMATED COUNT 8.2 2.0 - 12.0 12/15 Specimen Type: BLOOD Comment: Automated Differentia l Performed Ordering Provider: ISREAL BRIGGS Report Released Date/Time: Dec 15, 2022 11:19 AM Reporting Lab: [facility] [address] Performing Lab: [facility] [address] [place] [facility] CBC & DIFF EOSINOPHIL S/100 LEUKOCYTES IN BLOOD BY AUTOMATED COUNT 2.2 0.0 - 6.0 12/15 Specimen Type: BLOOD Comment: Automated Differentia l Performed Ordering Provider: ISREAL BRIGGS Report Released Date/Time: Dec 15, 2022 11:19 AM Reporting Lab: [facility] [address] Performing Lab: [facility] [address] [place] [facility] CBC & DIFF BASOPHILS/ 100 LEUKOCYTES IN BLOOD BY MANUAL COUNT 0.3 0.0 - 2.0 12/15 Specimen Type: BLOOD Comment: Automated Differentia l Performed Ordering Provider: ISREAL BRIGGS Report Released Date/Time: Dec 15, 2022 11:19 AM Reporting Lab: [facility] [address] Performing Lab: [facility] [address] [place] [facility] CBC & DIFF ERYTHROCYT E DISTRIBUTI ON WIDTH [RATIO] BY AUTOMATED COUNT 14.4 11.5 - 14.5 12/15 Specimen Type: BLOOD Comment: Automated Differentia l Performed Ordering Provider: ISREAL BRIGGS Report Released Date/Time: Dec 15, 2022 11:19 AM Reporting Lab: [facility] [address] Performing Lab: [facility] [address] [place] [facility] CBC & DIFF LYMPHOCYTE S [#/VOLUME] IN BLOOD BY AUTOMATED COUNT 3.38 1.0 - 4.0 12/15 Specimen Type: BLOOD Comment: Automated Differentia l Performed Ordering Provider: ISREAL BRIGGS Report Released Date/Time: Dec 15, 2022 11:19 AM Reporting Lab: [facility] [address] Performing Lab: [facility] [address] [place] [facility] CBC & DIFF MONOCYTES [#/VOLUME] IN BLOOD BY AUTOMATED COUNT 0.71 0.1 - 1.0 12/15 Specimen Type: BLOOD Comment: Automated Differentia l Performed Ordering Provider: ISREAL BRIGGS Report Released Date/Time: Dec 15, 2022 11:19 AM Reporting Lab: [facility] [address] Performing Lab: [facility] [address] [place] [facility] CBC & DIFF NEUTROPHIL S [#/VOLUME] IN BLOOD BY AUTOMATED COUNT 4.30 2.0 - 7.7 12/15 Specimen Type: BLOOD Comment: Automated Differentia l Performed Ordering Provider: ISREAL BRIGGS Report Released Date/Time: Dec 15, 2022 11:19 AM Reporting Lab: [facility] [address] Performing Lab: [facility] [address] [place] [facility] CBC & DIFF EOSINOPHIL S [#/VOLUME] IN BLOOD BY AUTOMATED COUNT 0.19 0 - 0.5 12/15 Specimen Type: BLOOD Comment: Automated Differentia l Performed Ordering Provider: ISREAL BRIGGS Report Released Date/Time: Dec 15, 2022 11:19 AM Reporting Lab: [facility] [address] Performing Lab: [facility] [address] [place] [facility] CBC & DIFF BASOPHILS [#/VOLUME] IN BLOOD BY AUTOMATED COUNT 0.03 0 - 0.2 12/15 Specimen Type: BLOOD Comment: Automated Differentia l Performed Ordering Provider: ISREAL BRIGGS Report Released Date/Time: Dec 15, 2022 11:19 AM Reporting Lab: [facility] [address] Performing Lab: [facility] [address] [place] [facility] CBC & DIFF IG(META,MY ENRIKE,PRO) 0.2 12/15 Specimen Type: BLOOD Comment: Automated Differentia l Performed Ordering Provider: ISREAL BIRGGS Report Released Date/Time: Dec 15, 2022 11:19 AM Reporting Lab: [facility] [address] Performing Lab: [facility] [address] [facility] CBC & DIFF IMMATURE GRANULOCYT ES [PRESENCE] IN BLOOD BY AUTOMATED COUNT 0.02 0 - 0.1 12/15 Specimen Type: BLOOD Comment: Automated Differentia l Performed Ordering Provider: ISREAL BRIGGS Report Released Date/Time: Dec 15, 2022 11:19 AM Reporting Lab: [facility] [address] Performing Lab: [facility] [address] [place] [facility] COMPREHE NSIVE METABOLI C PANEL+MG CREATININE [MASS/VOLU ME] IN SERUM OR PLASMA 0.9 0.7 - 1.2 12/15 Specimen Type: PLASMA Comment: Elevated triglycerid e result from a non-fasting specimen should be interpreted with caution. A fasting panel is recommended for accurate triglycerid es when trigs are >200 from a non-fasting specimen. Ordering Provider: ISREAL BRIGGS Report Released Date/Time: Dec 15, 2022 11:19 AM Reporting Lab: [facility] [address] Performing Lab: [facility] [address] [facility] COMPREHE NSIVE METABOLI C PANEL+MG UREA NITROGEN [MASS/VOLU ME] IN SERUM OR PLASMA 11 8 - 26 12/15 Specimen Type: PLASMA Comment: Elevated triglycerid e result from a non-fasting specimen should be interpreted with caution. A fasting panel is recommended for accurate triglycerid es when trigs are >200 from a non-fasting specimen. Ordering Provider: ISREAL BRIGGS Report Released Date/Time: Dec 15, 2022 11:19 AM Reporting Lab: [facility] [address] Performing Lab: [facility] [address] [facility] COMPREHE NSIVE METABOLI C PANEL+MG GLUCOSE [MASS/VOLU ME] IN SERUM OR PLASMA 91 70 - 100 12/15 Specimen Type: PLASMA Comment: Elevated triglycerid e result from a non-fasting specimen should be interpreted with caution. A fasting panel is recommended for accurate triglycerid es when trigs are >200 from a non-fasting specimen. Ordering Provider: ISREAL BRIGGS Report Released Date/Time: Dec 15, 2022 11:19 AM Reporting Lab: [facility] [address] Performing Lab: [facility] [address] [facility] COMPREHE NSIVE METABOLI C PANEL+MG SODIUM [MOLES/VOL UME] IN SERUM OR PLASMA 141 136 - 145 12/15 Specimen Type: PLASMA Comment: Elevated triglycerid e result from a non-fasting specimen should be interpreted with caution. A fasting panel is recommended for accurate triglycerid es when trigs are >200 from a non-fasting specimen. Ordering Provider: ISREAL BRIGGS Report Released Date/Time: Dec 15, 2022 11:19 AM Reporting Lab: [facility] [address] Performing Lab: [facility] [address] [facility] COMPREHE NSIVE METABOLI C PANEL+MG POTASSIUM [MOLES/VOL UME] IN SERUM OR PLASMA 4.4 3.5 - 5.1 12/15 Specimen Type: PLASMA Comment: Elevated triglycerid e result from a non-fasting specimen should be interpreted with caution. A fasting panel is recommended for accurate triglycerid es when trigs are >200 from a non-fasting specimen. Ordering Provider: ISREAL BRIGGS Report Released Date/Time: Dec 15, 2022 11:19 AM Reporting Lab: [facility] [address] Performing Lab: [facility] [address] [facility] COMPREHE NSIVE METABOLI C PANEL+MG CHLORIDE [MOLES/VOL UME] IN SERUM OR PLASMA 105 98 - 107 12/15 Specimen Type: PLASMA Comment: Elevated triglycerid e result from a non-fasting specimen should be interpreted with caution. A fasting panel is recommended for accurate triglycerid es when trigs are >200 from a non-fasting specimen. Ordering Provider: ISREAL BRIGGS Report Released Date/Time: Dec 15, 2022 11:19 AM Reporting Lab: [facility] [address] Performing Lab: [facility] [address] [facility] COMPREHE NSIVE METABOLI C PANEL+MG CARBON DIOXIDE, TOTAL [MOLES/VOL UME] IN SERUM OR PLASMA 27 22 - 29 12/15 Specimen Type: PLASMA Comment: Elevated triglycerid e result from a non-fasting specimen should be interpreted with caution. A fasting panel is recommended for accurate triglycerid es when trigs are >200 from a non-fasting specimen. Ordering Provider: ISREAL BRIGGS Report Released Date/Time: Dec 15, 2022 11:19 AM Reporting Lab: [facility] [address] Performing Lab: [facility] [address] [facility] COMPREHE NSIVE METABOLI C PANEL+MG CALCIUM [MASS/VOLU ME] IN SERUM OR PLASMA 9.6 8.4 - 10.2 12/15 Specimen Type: PLASMA Comment: Elevated triglycerid e result from a non-fasting specimen should be interpreted with caution. A fasting panel is recommended for accurate triglycerid es when trigs are >200 from a non-fasting specimen. Ordering Provider: ISREAL BRIGGS Report Released Date/Time: Dec 15, 2022 11:19 AM Reporting Lab: [facility] [address] Performing Lab: [facility] [address] [facility] COMPREHE NSIVE METABOLI C PANEL+MG PROTEIN [MASS/VOLU ME] IN SERUM OR PLASMA 7.6 6.0 - 8.3 12/15 Specimen Type: PLASMA Comment: Elevated triglycerid e result from a non-fasting specimen should be interpreted with caution. A fasting panel is recommended for accurate triglycerid es when trigs are >200 from a non-fasting specimen. Ordering Provider: ISREAL BRIGGS Report Released Date/Time: Dec 15, 2022 11:19 AM Reporting Lab: [facility] [address] Performing Lab: [facility] [address] [facility] COMPREHE NSIVE METABOLI C PANEL+MG ALBUMIN [MASS/VOLU ME] IN SERUM OR PLASMA 4.4 3.5 - 5.2 12/15 Specimen Type: PLASMA Comment: Elevated triglycerid e result from a non-fasting specimen should be interpreted with caution. A fasting panel is recommended for accurate triglycerid es when trigs are >200 from a non-fasting specimen. Ordering Provider: ISREAL BRIGGS Report Released Date/Time: Dec 15, 2022 11:19 AM Reporting Lab: [facility] [address] Performing Lab: [facility] [address] [facility] COMPREHE NSIVE METABOLI C PANEL+MG BILIRUBIN. TOTAL [MASS/VOLU ME] IN SERUM OR PLASMA 0.4 0.2 - 1.2 12/15 Specimen Type: PLASMA Comment: Elevated triglycerid e result from a non-fasting specimen should be interpreted with caution. A fasting panel is recommended for accurate triglycerid es when trigs are >200 from a non-fasting specimen. Ordering Provider: ISREAL BRIGGS Report Released Date/Time: Dec 15, 2022 11:19 AM Reporting Lab: [facility] [address] Performing Lab: [facility] [address] [facility] COMPREHE NSIVE METABOLI C PANEL+MG MAGNESIUM [MASS/VOLU ME] IN SERUM OR PLASMA 2.1 1.6 - 2.6 12/15 Specimen Type: PLASMA Comment: Elevated triglycerid e result from a non-fasting specimen should be interpreted with caution. A fasting panel is recommended for accurate triglycerid es when trigs are >200 from a non-fasting specimen. Ordering Provider: ISREAL BRIGGS Report Released Date/Time: Dec 15, 2022 11:19 AM Reporting Lab: [facility] [address] Performing Lab: [facility] [address] [facility] COMPREHE NSIVE METABOLI C PANEL+MG ANION GAP IN SERUM OR PLASMA 9 5 - 15 12/15 Specimen Type: PLASMA Comment: Elevated triglycerid e result from a non-fasting specimen should be interpreted with caution. A fasting panel is recommended for accurate triglycerid es when trigs are >200 from a non-fasting specimen. Ordering Provider: ISREAL BRIGGS Report Released Date/Time: Dec 15, 2022 11:19 AM Reporting Lab: [facility] [address] Performing Lab: [facility] [address] [facility] COMPREHE NSIVE METABOLI C PANEL+MG ALKALINE PHOSPHATAS E [ENZYMATIC ACTIVITY/V OLUME] IN SERUM OR PLASMA 78 40 - 150 12/15 Specimen Type: PLASMA Comment: Elevated triglycerid e result from a non-fasting specimen should be interpreted with caution. A fasting panel is recommended for accurate triglycerid es when trigs are >200 from a non-fasting specimen. Ordering Provider: ISREAL BRIGGS Report Released Date/Time: Dec 15, 2022 11:19 AM Reporting Lab: [facility] [address] Performing Lab: [facility] [address] [facility] COMPREHE NSIVE METABOLI C PANEL+MG ALANINE AMINOTRANS FERASE [ENZYMATIC ACTIVITY/V OLUME] IN SERUM OR PLASMA 23 <55 - 55 12/15 Specimen Type: PLASMA Comment: Elevated triglycerid e result from a non-fasting specimen should be interpreted with caution. A fasting panel is recommended for accurate triglycerid es when trigs are >200 from a non-fasting specimen. Ordering Provider: ISREAL BRIGGS Report Released Date/Time: Dec 15, 2022 11:19 AM Reporting Lab: [facility] [address] Performing Lab: [facility] [address] [facility] COMPREHE NSIVE METABOLI C PANEL+MG ASPARTATE AMINOTRANS FERASE [ENZYMATIC ACTIVITY/V OLUME] IN SERUM OR PLASMA 24 <34 - 34 12/15 Specimen Type: PLASMA Comment: Elevated triglycerid e result from a non-fasting specimen should be interpreted with caution. A fasting panel is recommended for accurate triglycerid es when trigs are >200 from a non-fasting specimen. Ordering Provider: ISREAL BRIGGS Report Released Date/Time: Dec 15, 2022 11:19 AM Reporting Lab: [facility] [address] Performing Lab: [facility] [address] [facility] COMPREHE NSIVE METABOLI C PANEL+MG GLOMERULAR FILTRATION RATE/1.73 SQ M.PREDICTE D [VOLUME RATE/AREA] IN SERUM, PLASMA OR BLOOD BY CREATININE -BASED FORMULA (CKD-EPI 2020) >90 60 12/15 Specimen Type: PLASMA Comment: Elevated triglycerid e result from a non-fasting specimen should be interpreted with caution. A fasting panel is recommended for accurate triglycerid es when trigs are >200 from a non-fasting specimen. Ordering Provider: ISREAL BRIGGS Report Released Date/Time: Dec 15, 2022 11:19 AM Reporting Lab: [facility] [address] Performing Lab: [facility] [address] [facility] HEMOGLOB IN A1C HEMOGLOBIN A1C/HEMOGL OBIN.TOTAL IN BLOOD 5.2 4.0 - 6.0 12/15 Specimen Type: BLOOD Comment: Values obtained from A1C measurement s can vary. For typical A1C assays, a reported value of 7.0 could actually be between 6.7 and 7.3 if measured by a reference method. A reported value of 9.0 could actually be between 8.7 and 9.3. Ref: http://www. ngsp.org/[place] Pdata.asp Ordering Provider: ISREAL BRIGGS Report Released Date/Time: Dec 15, 2022 11:19 AM Reporting Lab: [facility] [address] Performing Lab: [facility] [address] [place] [facility] LIPID PANEL,NO N-FASTIN G CHOLESTERO L [MASS/VOLU ME] IN SERUM OR PLASMA 177 <199 - 199 12/15 Specimen Type: PLASMA Comment: Elevated triglycerid e result from a non-fasting specimen should be interpreted with caution. A fasting panel is recommended for accurate triglycerid es when trigs are >200 from a non-fasting specimen. Ordering Provider: ISREAL BRIGGS Report Released Date/Time: Dec 15, 2022 11:19 AM Reporting Lab: [facility] [address] Performing Lab: [facility] [address] [place] [facility] LIPID PANEL,NO N-FASTIN G CHOLESTERO L IN HDL [MASS/VOLU ME] IN SERUM OR PLASMA 35 40 12/15 L Specimen Type: PLASMA Comment: Elevated triglycerid e result from a non-fasting specimen should be interpreted with caution. A fasting panel is recommended for accurate triglycerid es when trigs are >200 from a non-fasting specimen. Ordering Provider: ISREAL BRIGGS Report Released Date/Time: Dec 15, 2022 11:19 AM Reporting Lab: [facility] [address] Performing Lab: [facility] [address] [place] [facility] LIPID PANEL,NO N-FASTIN G CHOLESTERO L IN LDL [MASS/VOLU ME] IN SERUM OR PLASMA BY CALCULATIO N 84 <99 - 99 12/15 Specimen Type: PLASMA Comment: Elevated triglycerid e result from a non-fasting specimen should be interpreted with caution. A fasting panel is recommended for accurate triglycerid es when trigs are >200 from a non-fasting specimen. Ordering Provider: ISREAL BRIGGS Report Released Date/Time: Dec 15, 2022 11:19 AM Reporting Lab: [facility] [address] Performing Lab: [facility] [address] [place] [facility] LIPID PANEL,NO N-FASTIN G CHOLESTERO L IN VLDL [MASS/VOLU ME] IN SERUM OR PLASMA BY CALCULATIO N 58 <29 - 29 12/15 H Specimen Type: PLASMA Comment: Elevated triglycerid e result from a non-fasting specimen should be interpreted with caution. A fasting panel is recommended for accurate triglycerid es when trigs are >200 from a non-fasting specimen. Ordering Provider: ISREAL BRIGGS Report Released Date/Time: Dec 15, 2022 11:19 AM Reporting Lab: [facility] [address] Performing Lab: [place] [address] [place] [facility] LIPID PANEL,NO N-FASTIN G CHOLESTERO L NON HDL [MASS/VOLU ME] IN SERUM OR PLASMA 142 <129 - 129 12/15 H Specimen Type: PLASMA Comment: Elevated triglycerid e result from a non-fasting specimen should be interpreted with caution. A fasting panel is recommended for accurate triglycerid es when trigs are >200 from a non-fasting specimen. Ordering Provider: ISREAL BRIGGS Report Released Date/Time: Dec 15, 2022 11:19 AM Reporting Lab: [facility] [address] Performing Lab: [place] [phone] [facility] LIPID PANEL,NO N-FASTIN G TRIGLYCERI DE [MASS/VOLU ME] IN SERUM OR PLASMA 289 <149 - 149 12/15 H Specimen Type: PLASMA Comment: Elevated triglycerid e result from a non-fasting specimen should be interpreted with caution. A fasting panel is recommended for accurate triglycerid es when trigs are >200 from a non-fasting specimen. Ordering Provider: ISREAL BRIGGS Report Released Date/Time: Dec 15, 2022 11:19 AM Reporting Lab: [facility] [address] Performing Lab: [facility] [address] [facility] TSH W/REFLEX TO FREE T4 THYROTROPI N [UNITS/VOL UME] IN SERUM OR PLASMA 2.94 0.35 - 4.94 12/15 Specimen Type: PLASMA Comment: Elevated triglycerid e result from a non-fasting specimen should be interpreted with caution. A fasting panel is recommended for accurate triglycerid es when trigs are >200 from a non-fasting specimen. Ordering Provider: ISREAL BRIGGS Report Released Date/Time: Dec 15, 2022 11:19 AM Reporting Lab: [facility] [address] Performing Lab: [facility] [address] [place] [facility] OCCULT BLOOD FIT X1 SCREEN HEMOGLOBIN .GASTROINT ESTINAL.LO WER [PRESENCE] IN STOOL BY IMMUNOASSA Y --1ST SPECIMEN POSITIVE 06/30 HH Specimen Type: FECES No comment entered. Ordering Provider: MELVI WINSTON Report Released Date/Time: Jun 24, 2022 08:57 AM Reporting Lab: [facility] [address] Performing Lab: [facility] [address] [place] [facility] HEMOGLOB IN A1C HEMOGLOBIN A1C/HEMOGL OBIN.TOTAL IN BLOOD 5.2 4.0 - 6.0 06/24 Specimen Type: BLOOD Comment: Values obtained from A1C measurement s can vary. For typical A1C assays, a reported value of 7.0 could actually be between 6.7 and 7.3 if measured by a reference method. A reported value of 9.0 could actually be between 8.7 and 9.3. Ref: http://www. ngsp.org/[place] Pdata.asp Ordering Provider: MELVI WINSTON Report Released Date/Time: May 21, 2021 04:25 PM Reporting Lab: [facility] [address] Performing Lab: [facility] [address] [place] [facility] LIPID PANEL,NO N-FASTIN G CHOLESTERO L [MASS/VOLU ME] IN SERUM OR PLASMA 206 <199 - 199 06/24 H Specimen Type: PLASMA Comment: Elevated triglycerid e result from a non-fasting specimen should be interpreted with caution. A fasting panel is recommended for accurate triglycerid es when trigs are >200 from a non-fasting specimen. Ordering Provider: MELVI WINSTON Report Released Date/Time: May 21, 2021 04:25 PM Reporting Lab: [facility] [address] Performing Lab: [facility] [address] [place] [facility] LIPID PANEL,NO N-FASTIN G CHOLESTERO L IN HDL [MASS/VOLU ME] IN SERUM OR PLASMA 35 40 06/24 L Specimen Type: PLASMA Comment: Elevated triglycerid e result from a non-fasting specimen should be interpreted with caution. A fasting panel is recommended for accurate triglycerid es when trigs are >200 from a non-fasting specimen. Ordering Provider: MELVI WINSTON Report Released Date/Time: May 21, 2021 04:25 PM Reporting Lab: [facility] [address] Performing Lab: [facility] [address] [place] [facility] LIPID PANEL,NO N-FASTIN G CHOLESTERO L IN LDL [MASS/VOLU ME] IN SERUM OR PLASMA BY CALCULATIO N 106 <99 - 99 06/24 H Specimen Type: PLASMA Comment: Elevated triglycerid e result from a non-fasting specimen should be interpreted with caution. A fasting panel is recommended for accurate triglycerid es when trigs are >200 from a non-fasting specimen. Ordering Provider: MELVI WINSTON Report Released Date/Time: May 21, 2021 04:25 PM Reporting Lab: [facility] [address] Performing Lab: [facility] [address] [place] [facility] LIPID PANEL,NO N-FASTIN G CHOLESTERO L IN VLDL [MASS/VOLU ME] IN SERUM OR PLASMA BY CALCULATIO N 65 <29 - 29 06/24 H Specimen Type: PLASMA Comment: Elevated triglycerid e result from a non-fasting specimen should be interpreted with caution. A fasting panel is recommended for accurate triglycerid es when trigs are >200 from a non-fasting specimen. Ordering Provider: MELVI WINSTON Report Released Date/Time: May 21, 2021 04:25 PM Reporting Lab: [facility] [address] Performing Lab: [facility] [address] [place] [facility] LIPID PANEL,NO N-FASTIN G CHOLESTERO L NON HDL [MASS/VOLU ME] IN SERUM OR PLASMA 171 <129 - 129 06/24 H Specimen Type: PLASMA Comment: Elevated triglycerid e result from a non-fasting specimen should be interpreted with caution. A fasting panel is recommended for accurate triglycerid es when trigs are >200 from a non-fasting specimen. Ordering Provider: MELVI WINSTON Report Released Date/Time: May 21, 2021 04:25 PM Reporting Lab: [facility] [address] Performing Lab: [facility] [address] [place] [facility] LIPID PANEL,NO N-FASTIN G TRIGLYCERI DE [MASS/VOLU ME] IN SERUM OR PLASMA 323 <149 - 149 06/24 H Specimen Type: PLASMA Comment: Elevated triglycerid e result from a non-fasting specimen should be interpreted with caution. A fasting panel is recommended for accurate triglycerid es when trigs are >200 from a non-fasting specimen. Ordering Provider: MELVI WINSTON Report Released Date/Time: May 21, 2021 04:25 PM Reporting Lab: [facility] [address] Performing Lab: [facility] [address] [place] [facility] BASIC METABOLI C PANEL+MG CREATININE [MASS/VOLU ME] IN SERUM OR PLASMA 0.9 0.7 - 1.2 06/24 Specimen Type: PLASMA No comment entered. Ordering Provider: MELVI WINSTON Report Released Date/Time: Jun 24, 2022 09:38 AM Reporting Lab: [facility] [address] Performing Lab: [facility] [address] [place] [facility] BASIC METABOLI C PANEL+MG UREA NITROGEN [MASS/VOLU ME] IN SERUM OR PLASMA 13 8 - 26 06/24 Specimen Type: PLASMA No comment entered. Ordering Provider: MELVI WINSTON Report Released Date/Time: Jun 24, 2022 09:38 AM Reporting Lab: [facility] [address] Performing Lab: [facility] [address] [place] [facility] BASIC METABOLI C PANEL+MG GLUCOSE [MASS/VOLU ME] IN SERUM OR PLASMA 92 70 - 100 06/24 Specimen Type: PLASMA No comment entered. Ordering Provider: MELVI WINSTON Report Released Date/Time: Jun 24, 2022 09:38 AM Reporting Lab: [facility] [address] Performing Lab: [facility] [address] [place] [facility] BASIC METABOLI C PANEL+MG SODIUM [MOLES/VOL UME] IN SERUM OR PLASMA 137 136 - 145 06/24 Specimen Type: PLASMA No comment entered. Ordering Provider: MELVI WINSTON Report Released Date/Time: Jun 24, 2022 09:38 AM Reporting Lab: [facility] [address] Performing Lab: [facility] [address] [place] [facility] BASIC METABOLI C PANEL+MG POTASSIUM [MOLES/VOL UME] IN SERUM OR PLASMA 4.2 3.5 - 5.1 06/24 Specimen Type: PLASMA No comment entered. Ordering Provider: MELVI WINSTON Report Released Date/Time: Jun 24, 2022 09:38 AM Reporting Lab: [facility] [address] Performing Lab: [facility] [address] [place] [facility] BASIC METABOLI C PANEL+MG CHLORIDE [MOLES/VOL UME] IN SERUM OR PLASMA 102 98 - 107 06/24 Specimen Type: PLASMA No comment entered. Ordering Provider: MELVI WINSTON Report Released Date/Time: Jun 24, 2022 09:38 AM Reporting Lab: [facility] [address] Performing Lab: [facility] [address] [place] [facility] BASIC METABOLI C PANEL+MG CARBON DIOXIDE, TOTAL [MOLES/VOL UME] IN SERUM OR PLASMA 28 22 - 29 06/24 Specimen Type: PLASMA No comment entered. Ordering Provider: MELVI WINSTON Report Released Date/Time: Jun 24, 2022 09:38 AM Reporting Lab: [facility] [address] Performing Lab: [facility] [address] [place] [facility] BASIC METABOLI C PANEL+MG CALCIUM [MASS/VOLU ME] IN SERUM OR PLASMA 9.4 8.4 - 10.2 06/24 Specimen Type: PLASMA No comment entered. Ordering Provider: MELVI WINSTON Report Released Date/Time: Jun 24, 2022 09:38 AM Reporting Lab: [facility] [address] Performing Lab: [facility] [address] [place] [facility] BASIC METABOLI C PANEL+MG MAGNESIUM [MASS/VOLU ME] IN SERUM OR PLASMA 2.1 1.6 - 2.6 06/24 Specimen Type: PLASMA No comment entered. Ordering Provider: MELVI WINSTON Report Released Date/Time: Jun 24, 2022 09:38 AM Reporting Lab: [facility] [address] Performing Lab: [facility] [address] [place] [facility] BASIC METABOLI C PANEL+MG ANION GAP IN SERUM OR PLASMA 7 5 - 15 06/24 Specimen Type: PLASMA No comment entered. Ordering Provider: MELVI WINSTON Report Released Date/Time: Jun 24, 2022 09:38 AM Reporting Lab: [facility] [address] Performing Lab: [facility] [address] [place] [facility] BASIC METABOLI C PANEL+MG GLOMERULAR FILTRATION RATE/1.73 SQ M.PREDICTE D [VOLUME RATE/AREA] IN SERUM, PLASMA OR BLOOD BY CREATININE -BASED FORMULA (CKD-EPI) >90 60 06/24 Specimen Type: PLASMA No comment entered. Ordering Provider: MELVI WINSTON Report Released Date/Time: Jun 24, 2022 09:38 AM Reporting Lab: [facility] [address] Performing Lab: [facility] [address] [place] [facility] DRUG SCREEN PANEL,UR INE BARBITURAT ES [PRESENCE] IN URINE BY SCREEN METHOD Negative 11/13 Specimen Type: URINE Comment: Presumptive Positive by screen, results not confirmed. Ordering Provider: MELVI WINSTON Report Released Date/Time: Nov 13, 2021 10:55 AM Reporting Lab: [facility] [address] Performing Lab: [facility] [address] [place] [facility] DRUG SCREEN PANEL,UR INE AMPHETAMIN ES [PRESENCE] IN URINE POSITIVE 11/13 H Specimen Type: URINE Comment: Presumptive Positive by screen, results not confirmed. Ordering Provider: MELVI WINSTON Report Released Date/Time: Nov 13, 2021 10:55 AM Reporting Lab: [facility] [address] Performing Lab: [facility] [address] [place] [facility] DRUG SCREEN PANEL,UR INE COCAINE [PRESENCE] IN URINE Negative 11/13 Specimen Type: URINE Comment: Presumptive Positive by screen, results not confirmed. Ordering Provider: MELVI WINSTON Report Released Date/Time: Nov 13, 2021 10:55 AM Reporting Lab: [facility] [address] Performing Lab: [facility] [address] [place] [facility] DRUG SCREEN PANEL,UR INE BENZODIAZE PINES [PRESENCE] IN URINE BY SCREEN METHOD POSITIVE 11/13 H Specimen Type: URINE Comment: Presumptive Positive by screen, results not confirmed. Ordering Provider: MELVI WINSTON Report Released Date/Time: Nov 13, 2021 10:55 AM Reporting Lab: [facility] [address] Performing Lab: [facility] [address] [place] [facility] DRUG SCREEN PANEL,UR INE CANNABINOI DS [PRESENCE] IN URINE BY SCREEN METHOD POSITIVE 11/13 H Specimen Type: URINE Comment: Presumptive Positive by screen, results not confirmed. Ordering Provider: MELVI WINSTON Report Released Date/Time: Nov 13, 2021 10:55 AM Reporting Lab: [facility] [address] Performing Lab: [facility] [address] [place] [facility] DRUG SCREEN PANEL,UR INE METHADONE [PRESENCE] IN URINE Negative 11/13 Specimen Type: URINE Comment: Presumptive Positive by screen, results not confirmed. Ordering Provider: MELVI WINSTON Report Released Date/Time: Nov 13, 2021 10:55 AM Reporting Lab: [facility] [address] Performing Lab: [facility] [address] [place] [facility] DRUG SCREEN PANEL,UR INE OPIATES [PRESENCE] IN URINE BY SCREEN METHOD POSITIVE 11/13 H Specimen Type: URINE Comment: Presumptive Positive by screen, results not confirmed. Ordering Provider: MELVI WINSTON Report Released Date/Time: Nov 13, 2021 10:55 AM Reporting Lab: [facility] [address] Performing Lab: [facility] [address] [place] [facility] DRUG SCREEN PANEL,UR INE PHENCYCLID INE [PRESENCE] IN URINE Negative 11/13 Specimen Type: URINE Comment: Presumptive Positive by screen, results not confirmed. Ordering Provider: MELVI WINSTON Report Released Date/Time: Nov 13, 2021 10:55 AM Reporting Lab: [facility] [address] Performing Lab: [facility] [address] [place] [facility] DRUG SCREEN PANEL,UR INE ETHANOL [MASS/VOLU ME] IN URINE Negative 11/13 Specimen Type: URINE Comment: Presumptive Positive by screen, results not confirmed. Ordering Provider: MELVI WINSTON Report Released Date/Time: Nov 13, 2021 10:55 AM Reporting Lab: [facility] [address] Performing Lab: [facility] [address] [place] [facility] DRUG SCREEN PANEL,UR INE CREATININE [MASS/VOLU ME] IN URINE 171.7 20.0 11/13 Specimen Type: URINE Comment: Presumptive Positive by screen, results not confirmed. Ordering Provider: MELVI WINSTON Report Released Date/Time: Nov 13, 2021 10:55 AM Reporting Lab: [facility] [address] Performing Lab: [facility] [address] [place] [facility] DRUG SCREEN PANEL,UR INE OXYCODONE [PRESENCE] IN URINE BY SCREEN METHOD POSITIVE 11/13 H Specimen Type: URINE Comment: Presumptive Positive by screen, results not confirmed. Ordering Provider: MELVI WINSTON Report Released Date/Time: Nov 13, 2021 10:55 AM Reporting Lab: [facility] [address] Performing Lab: [facility] [address] [place] [facility] DRUG SCREEN PANEL,UR INE BUPRENORPH INE+NORBUP RENORPHINE [PRESENCE] IN URINE Negative 11/13 Specimen Type: URINE Comment: Presumptive Positive by screen, results not confirmed. Ordering Provider: MELVI WINSTON Report Released Date/Time: Nov 13, 2021 10:55 AM Reporting Lab: [facility] [address] Performing Lab: [facility] [address] [place] [facility] DRUG SCREEN PANEL,UR INE TRAMADOL CUTOFF [MASS/VOLU ME] IN URINE FOR SCREEN METHOD Negative 11/13 Specimen Type: URINE Comment: Presumptive Positive by screen, results not confirmed. Ordering Provider: MELVI WINSTON Report Released Date/Time: Nov 13, 2021 10:55 AM Reporting Lab: [facility] [address] Performing Lab: [facility] [address] [facility] DRUG SCREEN PANEL,UR INE FENTANYL [PRESENCE] IN URINE Negative 11/13 Specimen Type: URINE Comment: Presumptive Positive by screen, results not confirmed. Ordering Provider: MELVI WINSTON Report Released Date/Time: Nov 13, 2021 10:55 AM Reporting Lab: [facility] [address] Performing Lab: [facility] [address] [facility] Vital Signs Combined list of inpatient and outpatient Vital Signs from Department of Defense and Veterans Affairs, ranging from 12 months to all on record, depending upon the facility. Vital Sign Value Date Comments Source SYSTOLIC BLOOD PRESSURE 143 03/15/2023 13:51:05 [facility] DIASTOLIC BLOOD PRESSURE 85 03/15/2023 13:51:05 [facility] PULSE OXIMETRY 95% 03/15/2023 13:51:05 [place] [facility] WEIGHT 275 03/15/2023 13:51:05 [facility] BMI 37kg/m2 03/15/2023 13:51:05 [facility] PAIN 5 03/15/2023 13:51:05 [facility] HEIGHT 72 03/15/2023 13:51:05 [facility] TEMPERATURE 98.2 03/15/2023 13:51:05 [place] [facility] PULSE 110 03/15/2023 13:51:05 [place] [facility] [facility] RESPIRATION 15 03/15/2023 13:51:05 [facility] SYSTOLIC BLOOD PRESSURE 135 03/02/2023 09:32:29 [place] DIASTOLIC BLOOD PRESSURE 89 03/02/2023 09:32:29 [facility] PULSE OXIMETRY 95% 03/02/2023 09:32:29 [facility] [place] [facility] PAIN 5 03/02/2023 09:32:29 [facility] TEMPERATURE 97.8 03/02/2023 09:32:29 [facility] PULSE 85 03/02/2023 09:32:29 [facility] RESPIRATION 16 03/02/2023 09:32:29 [facility] SYSTOLIC BLOOD PRESSURE 121 12/15/2022 11:30:03 [facility] DIASTOLIC BLOOD PRESSURE 70 12/15/2022 11:30:03 [facility] PULSE OXIMETRY 97% 12/15/2022 11:30:03 [facility] [place] [facility] WEIGHT 270 12/15/2022 11:30:03 [facility] BMI 37kg/m2 12/15/2022 11:30:03 [facility] PAIN 5 12/15/2022 11:30:03 [facility] HEIGHT 72 12/15/2022 11:30:03 [facility] TEMPERATURE 98.1 12/15/2022 11:30:03 [facility] PULSE 97 12/15/2022 11:30:03 [facility] RESPIRATION 17 12/15/2022 11:30:03 [facility] SYSTOLIC BLOOD PRESSURE 120 08/03/2022 13:59:31 [facility] DIASTOLIC BLOOD PRESSURE 77 08/03/2022 13:59:31 [facility] PULSE OXIMETRY 95% 08/03/2022 13:59:31 [facility] [facility] PAIN 4 08/03/2022 13:59:31 [facility] PULSE 93 08/03/2022 13:59:31 [facility] RESPIRATION 18 08/03/2022 13:59:31 [facility] SYSTOLIC BLOOD PRESSURE 138 06/24/2022 09:01:02 [place] [facility] DIASTOLIC BLOOD PRESSURE 88 06/24/2022 09:01:02 [facility] PULSE OXIMETRY 94% 06/24/2022 09:01:02 [place] WEIGHT 271 06/24/2022 09[facility]01:02 [facility] 38kg/m2 06/24/2022 09:01:02 [facility] PAIN 6 06/24/2022 09:01:02 [facility] PULSE 82 06/24/2022 09:01:02 [facility] RESPIRATION 16 06/24/2022 09:01:02 [facility] Encounters Combined list of: 1) Encounters from Department of Veterans Affairs facilities going back up to thelast 18 months. 2) Encounters from the Department of [facility] facilities going back up to 280 months. Location Location Details Encounter Type Encounter Number Reason For Visit Attending Provider ADM Date DC Date Status Disposition Source [place]) OUTPATIENT [id number] feet JAIRO HERMAN 08/14 Released w/o Limitations [place] OUTPATIENT [id number] meds NASIOTIS, BRITTANEY 04/21 [facility] with Work[facility]Duty [facility]itations [facility] Neurosurg tatyana) OUTPATIENT [id number] new OIF PT, lumbar back pain CURTIS DUMONT 04/26 Released w/o Limitations [facility] Neurosu rgery) [facility] OUTPATIENT [id number] med refill, x-ray FU ROXIE WOLF 04/26 Released with Work/Duty Limitations [facility] Dwmm) [facility] Neurosurg tatyana) OUTPATIENT [id number] RERE WU 04/29 Released with Work/Duty Limitations [facility] Neurosu rgery) [facility]) OUTPATIENT [id number] SATURNINO BLEVINS 04/29 Released with Work/Duty Limitations [facility]) Herrera sutherland [facility] Barbara EMERSON(Social Work Services [employer] Maintenance Technician) OUTPATIENT [id number] post deploym ent screeni luis SHARPE RONI DOMINIQUE 05/03 Released w/o Limitations Herrera daniels [facility] Barbara EMERSON(Soci al Work Service s Electronics Maintenance Technician ) Herrera sutherland [facility] Barbara EMERSON([facility]) OUTPATIENT [id number] [facility] ABBIE MASSEY 05/04 Released w/o Limitations Herrera daniels [facility] Barbara Faustin ([facility]) Herrera Melo r [facility] Barbara Faustin ([facility]) OUTPATIENT [id number] IN PROCESS IAN VALDEZ 05/04 Released w/o Limitations Herrera daniels [facility] Barbara Faustin [facility] Herrera sutherland [facility] Barbara Faustin ([facility]) OUTPATIENT [id number] PPD IAN MUNOZ 05/06 Released w/o Limitations Herrera daniels [facility] Barbara Faustin ([facility]) [facility] [facility] [place] [facility] Faustin ([facility] OUTPATIENT [id number] [facility] ABBIE MASSEY 05/06 Released w/o Limitations Herrera daniels [facility] [place] Barbara Faustin ([facility]) Herrera sutherland [facility] [place] Barbara Faustin [facility] OUTPATIENT [id number] new consult --CARPA L TUNNEL SYNDROM E LVGABY SALLY 05/06 Released w/o Limitations Herrera daniels [facility] [place] Barbara Faustin (Occu pationa l Therapy ) Herrera sutherland [facility] [place] Barbara Faustin (Physic al Therapy [facility]) OUTPATIENT [id number] HERNIAT ED INTERVE RTEBRAL DISC/NE W PT MELANIE WU 05/10 Released with Work/Duty Limitations Herrera daniels [facility] [place] Barbara Faustin (Phys ical Therapy [facility]) Herrera sutherland [facility] [place] [facility]) OUTPATIENT [id number] YUE ZAVALA 05/11 Released w/o Limitations Herrera daniels [facility] [place] [facility]) Herrera Melo r [facility] [place] OUT[place]IENT [id number] told [place] needs shot for pain ABBIE MASSEY N 05/12 Released w/o Limitations Herrera Julian [facility] [place]) Herrera Melo r [facility] [place] [facility]) OUTPATIENT [id number] YUE ZAVALA 05/13 Released with Work/Duty Limitations Herrera daniels [facility] [place] [facility]) Herrera sutherland [facility] [place]Phys[place] [facility]) OUTPATIENT [id number] YUE ZAVALA 05/16 Released w/o Limitations Herrera daniels [facility] [place] [facility]) Herrera sutherland [facility] [place] ([facility] OUTPATIENT [id number] f/u ABBIE MASSEY N 05/18 Released w/o Limitations Herrera daniels [facility] [place]) Herrera sutherland [facility] [place] [facility]) OUTPATIENT [id number] YUE ZAVALA 05/18 Released w/o Limitations Herrera daniels [facility] [place] [facility]) Herrera sutherland [facility] [place] [place] [facility]) [place] [id number] HERNIAT ED INTERVE RTEBRAL DISC COREEN LARA 05/20 Released w/o Limitations Herrera daniels [facility] [place] [facility] Rehab) Herrera sutherland [facility] [place] [facility]) OUTPATIENT [id number] YUE ZAVALA 05/20 Released with Work/Duty Limitations Herrera daniels [facility] [place] [facility]) Herrera Sorensone r [facility] [place] [facility]) OUTPATIENT [id number] YUE ZAVALA 05/23 Released with Work/Duty Limitations Herrera Uso wer [facility] [place] [facility]) Herrera Melo r [facility] [place]IENT [id number] [facility] ABBIE MASSEY N 05/25 Released w/o Limitations Herrera Uso wer [facility] [place]) Herrera Melo r [facility] [place] [facility]) OUTPATIENT [id number] YUE ZAVALA 05/25 Released w/o Limitations Herrera Julian wer [facility] [place] [facility]) Herrera Melo r [facility] [place] [facility]) OUTPATIENT [id number] YUE ZAVALA 06/01 Released w/o Limitations Herrera Julian [facility] [place] [facility]) Herrera Melo r [facility] [place] [place] [id number] f/u on [facility] ABBIE MASSEY N 06/02 Released w/o Limitations Herrera Uso wer [facility] [place]) Herrera Melo r [facility] [place] [facility]) OUTPATIENT [id number] YUE ZAVALA 06/03 Released with Work/Duty Limitations Herrera Uso wer [facility] [place] [facility]) Herrera Melo r [facility] [place] [place] [facility] [place]) [place]PATIENT [id number] COREEN LARA 06/08 Released w/o Limitations Herrera Uso wer [facility] [place]Phys [place] Medic[place] & Rehab) Herrera Melo r [facility] [place] [facility]) OUTPATIENT [id number] F/U 4WMELANIE TAM 06/09 Released with Work/Duty Limitations Herrera daniels [facility] [place] [facility]) Herrera Melo r [facility] [place] [id number] f/u CASSIE MASSEYORACIO Simpson 06/10 Released w/o Limitations Herrera daniels [facility] [place]) Herrera Melo r [facility] [place]) [place] [id number] HERNIAT ED INTERVE RTEBRAL DISC TASNEEM HINDS 06/10 Released w/o Limitations Herrera daniels [facility] [place]) Herrera Melo r [facility] [place] [facility]) OUTPATIENT [id number] EX/ JEROME HODGES 06/13 Released with Work/Duty Limitations Herrera daniels [facility] [place] [facility]) Herrera Melo r [facility] [place]) [place] [id number] uro/cristy TASNEEM HINDS 06/15 Released w/o Limitations Herrera daniels [facility] [place]) Herrera Melo r [facility] [place] [facility]) OUTPATIENT [id number] EX/ LEONARDO MURPHY 06/16 Released with Work/Duty Limitations Herrera daniels [facility] [place] [facility]) Herrera Melo r [facility] [place] [facility]) OUTPATIENT [id number] EX/ LEONARDO MURPHY 06/17 Released with Work/Duty Limitations Herrera daniels [facility] [place] [facility]) Herrera Melo r [facility] [place] [facility]) OUTPATIENT [id number] EX/ LEONARDO MURPHY 06/20 Released with Work/Duty Limitations Herrera daniels [facility] [place] [facility]) Herrera Melo r [facility] [place] [facility]) OUTPATIENT [id number] EX/ LEONARDO MURPHY 06/22 Released with Work/Duty Limitations Herrera Uso wer [facility] [place] [facility]) Herrera Silverman Eisenhowe r [facility] [place] [place] [facility] [place]) [place] [id number] COREEN LARA Chavo 06/22 Released w/o Limitations Herrera Uso wer [facility] [place] Rehab) Herrera Silverman Eisenhowe r [facility] [place] [facility]) OUTPATIENT [id number] EX/ LEONARDO MURPHY 06/24 Released with Work/Duty Limitations Herrera Uso wer [facility] [place] [facility]) Herrera Sorensone r [facility] [place] [id number] PAIN ABBIE MASSEY N 06/24 Released w/o Limitations Herrera Uso wer [facility] [place]) Herrera Parisenhdevone r [facility] [place] [facility]) OUTPATIENT [id number] EX/ LEONARDO MURPHY 06/27 Released with Work/Duty Limitations Herrera Uso wer [facility] [place] [facility]) Herrera Sorensone r [facility] [place] [place] [facility] [place] [id number] follow up COREEN LARA 06/27 Released w/o Limitations Herrera Uso wer [facility] [place] Rehab) Herrera Parisenhdevone r [facility] [place] [facility]) OUTPATIENT [id number] EX/ LEONARDO MURPHY 06/29 Released with Work/Duty Limitations Herrera Uso wer [facility] [place] [facility]) Herrera Silverman [place] r [facility] [place] [id number] f/u HTN ABBIE MASSEY N 06/30 Released w/o Limitations Herrera Uso wer [facility] [place]) Herrera Sorensone r [facility] [place]Optome [place] [facility]) OUTPATIENT [id number] eye exam ARANZA SELLERS 06/30 Released w/o Limitations Herrera Uso wer [facility] [place]Opto [place] [facility]) Herrera Melo r [facility] [place] [facility]) OUTPATIENT [id number] EX/ LEONARDO MURPHY 07/01 Released with Work/Duty Limitations Herrera Uso wer [facility] [place] [facility]) Herrera Sorensone r [facility] [place] [facility]) OUTPATIENT [id number] walk in for jenniferYUE Holden 07/01 Released with Work/Duty Limitations Herrera Uso wer [facility] [place] [facility]) Herrera Melo r [facility] [place] (Audiol [facility]gy [facility] OUTPATIENT [id number] HEARING LOSS LEO MCQUEEN 07/04 Released w/o Limitations Herrera Uso wer [facility] [place]Alessandro [place]) Herrera Melo r [facility] [place] (Physic al Therapy [facility]) OUTPATIENT [id number] F/U 4WKS MELANIE WU 07/07 Released with Work/Duty Limitations Herrera sUo wer [facility] [place] [facility]) Herrera Melo r [facility] [place] OUTPATIENT [id number] f/u ABBIE MASSEY 07/07 Released w/o Limitations Herrera Uso wer [facility] [place]) Herrera Melo r [facility] [place]Opt[place] [facility]) OUTPATIENT [id number] glasses JERRELL HAN 07/21 Released w/o Limitations Herrera Uso wer [facility] [place]Opto [place] [facility]) Herrera Sorensone r [facility] [place] OUTPATIENT [id number] meds ABBIE MASSEY 07/27 Released w/o Limitations Herrera daniels [facility] [place]) Herrera sutherland [facility] [place] [facility]) OUTPATIENT [id number] F/U BRYCEJOSE GUADALUPE PRESTONJose Luis Chery 07/29 Released with Work/Duty Limitations Herrera daniels [facility] [place] [facility]) Herrera sutherland [facility] [place]) [place] [id number] HERNIAT ED INTERVE RTEBRAL DISC RAUL CARPENTER 08/04 Released w/o Limitations Herrera daniels [facility] [place] Herrera sutherland [facility] [place] [id number] er f/u ABBIE AMSSEY N 08/04 Released w/o Limitations Herrera daniels [facility] [place]) Herrera sutherland [facility] [place] [facility]) OUTPATIENT [id number] adjustm ent RADHA SAPP 08/09 Released w/o Limitations Herrera daniels [facility] [place] [facility]) Herrera sutherland [facility] [place] [facility]) OUTPATIENT [id number] adjustm ent RADHA SAPP 08/11 Released w/o Limitations Herrera daniels [facility] [place] [facility]) Herrera sutherland [facility] [place] [place] [facility] [id number] COREEN LARA 08/11 Released w/o Limitations Herrera daniels [facility] [place] Medic[place] & Rehab) Herrera sutherland [facility] [place] [id number] two week f/u ABBIE MASSEY N 08/12 Released w/o Limitations Herrera daniels [facility] [place]Comm [facility]) Herrera sutherland [facility] [place] [facility]) OUTPATIENT [id number] FELIPEOTONIEL 08/17 Released with Work/Duty Limitations Herrera daniels [facility] [place](Phys ical Therapy [facility]) Herrera sutherland [facility] [place](Physic al Therapy [facility]) OUTPATIENT [id number] ALLYSON BLACK 08/22 Released with Work/Duty Limitations Herrera daniels [facility] [place](Phys ical Therapy [facility]) Herrera sutherland [facility] [place]([facility] OUTPATIENT [id number] Med ABBIE Rodriguez 08/29 Released w/o Limitations Herrera daniels [facility] [place]([facility]) Herrera sutherland [facility] [place](Physic al Therapy [facility]) OUTPATIENT [id number] MELANIE Bergman 08/29 Released with Work/Duty Limitations Herrera daniels [facility] [place](Phys ical Therapy [facility]) Herrera sutherland [facility] [place](Ortho Cast) OUTPATIENT [id number] knee JORGE EDDY 08/31 Released w/o Limitations Herrera daniels [facility] [place](Orth o Cast) Herrera sutherland [facility] [place](Physic al Therapy [facility]) OUTPATIENT [id number] rehab AGONA, BLAINE L 08/31 Released with Work/Duty Limitations Herrera daniels [facility] [place] Barbara [place](Phys ical Therapy [facility]) Herrera sutherland [facility] [place](Physic al Therapy [facility]) OUTPATIENT [id number] rehab GAONA, BLAINE L 09/01 Released with Work/Duty Limitations Herrera daniels [facility] [place](Phys ical Therapy [facility]) Herrera sutherland [facility] [place]) [place] [id number] PT Alexsandra jorgeq knee brace JEROME CHAHAL 09/01 Released w/o Limitations Herrera daniels [facility] [place]) Herrera sutherland [facility] [place] [facility]) OUTPATIENT [id number] rehab. GAONACHINORY L 09/02 Released with Work/Duty Limitations Herrera Julian [facility] [place] [facility]) Herrera Mleo r [facility] [place] [facility]) OUTPATIENT [id number] rehab GAONACHINORY L 09/08 Released with Work/Duty Limitations [facility] [place] [facility]) Herrera Melo r [facility] [place] [place] [facility] [place]) [place] [id number] LBP WITH RADICUL AR SX TO BOTH LOWER EXTREMI TIES COREEN LARA 09/09 Released w/o Limitations [facility] [place] Re[place] Herrera Melo r [facility] [place] (Cardio logy) OUTPATIENT [id number] Stress Test (Rad) KARSTEN DOAN 09/12 Released w/o Limitations Herrera Julian [facility] [place]Card [place] Herrera Melo r [facility] [place] ([facility] OUTPATIENT [id number] KELLY CODY 09/13 Released w/o Limitations Herrera Julian [facility] [place] ([facility]) Herrera Melo r [facility] [place] (Physic al Therapy [facility]) OUTPATIENT [id number] rehab GAONABLAINE L 09/13 Released with Work/Duty Limitations Herrera Julian [facility] [place]Phys [place] [facility]) Herrera Melo r [facility] [place]Phys[place] [facility]) OUTPATIENT [id number] rehab GAONACHINORY L 09/14 Released with Work/Duty Limitations [facility] [place] [facility]) Herrera Melo r [facility] [place]Medica [place] Exam Johana) OUTPATIENT [id number] MARIBELL Luo 09/14 Released w/o Limitations Herrera daniels [facility] [place]Med[place]ish Exam [place] y) Herrera sutherland [facility] [place]) [place] [id number] MCl tear JOANNA jorgeq hinged knee braDRAKE Leon 09/16 Released w/o Limitations Herrera daniels [facility] [place]) Herrera sutherland [facility] [place] [id number] NOT SURE--R ABBIE BORGES 09/19 Released w/o Limitations Herrera daniels [facility] [place]) Herrera sutherland [facility] [place] [facility]) OUTPATIENT [id number] ALLYSON BENITEZ 09/19 Released w/o Limitations Herrera daniels [facility] [place] [facility]) Herrera sutherland [facility] [place] [facility]) OUTPATIENT [id number] ALLYSON BENITEZ 09/21 Released w/o Limitations Herrera daniels [facility] [place] [facility]) Herrera sutherland [facility] [place] [facility]) OUTPATIENT [id number] REHAB GAONA, BLAINE L 09/23 Released with Work/Duty Limitations Herrera daniels [facility] [place] [facility]) Herrera sutherland [facility] [place] [facility]) OUTPATIENT [id number] REHAB GAONA, BLAINE L 09/27 Released with Work/Duty Limitations Herrera daniels [facility] [place] [facility]) Herrera sutherland [facility] [place] [facility]) OUTPATIENT [id number] REHAB GAONA, BLAINE L 09/29 Released with Work/Duty Limitations Herrera daniels [facility] [place] [facility]) Herrera sutherland [facility] [place] [id number] f/u ABBIE MASSEY N 09/30 Released w/o Limitations Herrera daniels [facility] [place]) Herrera Melo r [facility] [place]) [place] [id number] JORGE EDDY 09/30 Released w/o Limitations Herrera daniels [facility] [place] Herrera Melo r [facility] [place]Phys[place] [facility]) OUTPATIENT [id number] REHAB GAONA, BLAINE L 10/04 Released with Work/Duty Limitations Herrera daniels [facility] [place] [facility]) Herrera Melo r [facility] [place] [facility]) OUTPATIENT [id number] REHAB GAONA, BLAINE L 10/05 Released with Work/Duty Limitations Herrera daniels [facility] [place] [facility]) Herrera Melo r [facility] [place] [facility]) OUTPATIENT [id number] REHAB GAONA, BLAINE L 10/06 Released with Work/Duty Limitations Herrera daniels [facility] [place] [facility]) Herrera sutherland [facility] [place]) [place] [id number] MCL PAIN L KNEE JORGE EDDY 10/13 Released w/o Limitations Herrera daniels [facility] [place] Herrera Melo r [facility] [place] [id number] meds ABBIE MASSEY N 10/18 Released w/o Limitations Herrera daniels [facility] [place]) Herrera Melo r [facility] [place] [facility]) OUTPATIENT [id number] f/up ALLYSON BENITEZ 10/18 Released w/o Limitations Herrera daniels [facility] [place] [facility]) Herrera Melo r [facility] [place] [facility]) OUTPATIENT [id number] rehab BLAINE GAONA L 10/28 Released with Work/Duty Limitations Herrera Uso wer [facility] [facility]) Herrera Sorensone r [facility] [place] [facility]) OUTPATIENT [id number] rehab BLAINE GAONA L 10/31 Released with Work/Duty Limitations Herrera [facility]so [facility] [place] [facility]) Herrera Sorensone r [facility] [place] [place]) [place] [id number] (L)knee scope [id number] DIONI ZAPIEN S 11/02 Released w/o Limitations Herrera Julian [facility] [place] Herrera Melo r [facility] [place]Phys[place] [facility]) OUTPATIENT [id number] preop REYNA LOBATO 11/02 Released with Work/Duty Limitations Herrera Julian wer [facility] [place] [facility]) Herrera Melo r [facility] [place] [facility] OUTPATIENT [id number] for ABBIE Rueda 11/03 Released w/o Limitations Herrera [facility] [place]) Herrera Melo r [facility] [place] DIRECT TO ILF FROM OTHER THAN ER OR APU [id number] JORGE CROSS 11/09 RETURNED TO DUTY Herrera Julian wer [facility] [place] Herrera Melo r [facility] [place] [facility]) INPATIENT [id number] initiat e [facility] CARLY Arthur 11/09 Inpatient- Still a Patient Herrera Julian wer [facility] [place]Soci [place] [facility]) Herrera Melo r [facility] [place]) IN[place] [id number] INITIAL SCREEN CONTRERAS THOMAS 11/10 Inpatient- Still a Patient Herrera daniels [facility] [place] Herrera Melo r [facility] [place]Phys[place] [facility]) OUTPATIENT [id number] WENCESLAO LUO 11/11 Released with Work/Duty Limitations Herrera Pariswallace wer [facility] [place] [facility]) Herrera Melo r [facility] [place]) INPATIENT [id number] Inpatie nt Consult COREEN LARA 11/14 Inpatient- Still a Patient Herrera Usjose luis wer [facility] [place] Rehab) Herrera sutherland [facility] [place] [facility]) INPATIENT [id number] contact with AD [facility] CARLY CREWS 11/14 Inpatient- Still a Patient Herrera Julian frances [facility] [place] [facility]) Herrera Melo r [facility] [place] [facility]) INPATIENT [id number] dischar ge plan CARLY CREWS 11/15 Inpatient- Still a Patient Herrera Julian frances [facility] [place] [facility]) Herrera Melo r [facility] [place] [facility]) INPATIENT [id number] REHAB BLAINE GAONA L 11/16 Inpatient- Still a Patient Herrera Julian [facility] [place] [facility]) Herrera Melo r [facility] [place] [facility]) OUTPATIENT [id number] REHAB GAONA, BLAINE L 11/17 Released with Work/Duty Limitations Herrera daniels [facility] [place] [facility]) Herrera Melo r [facility] [place] [id number] to discuss nutriti on SHILPA ABBIE N 11/18 Released w/o Limitations Herrera daniels [facility] [place] [facility]) Herrera Melo r [facility] [place]) OUT[place] [id number] margot removal GROHILLARYJORGE Jacob 11/18 Released w/o Limitations Herrera daniels [facility] [place]) Herrera sutherland [facility] [place] [facility]) INPATIENT [id number] REHAB GAONA, BLAINE L 11/22 Inpatient- Still a Patient Herrera daniels [facility] [place] [facility]) Herrera sutherland [facility] [place] [facility]) OUTPATIENT [id number] REHAB GAONA, BLAINE L 11/23 Released with Work/Duty Limitations Herrera daniels [facility] [place] [facility]) Herrera sutherland [facility] [place] [facility]) OUTPATIENT [id number] REHAB GAONA, BLAINE L 11/25 Released with Work/Duty Limitations Herrera daniels [facility] [place] [facility]) Herrera sutherland [facility] [place] [facility]) INPATIENT [id number] REHAB GAONA, BLAINE L 11/28 Inpatient- Still a Patient Herrera daniels [facility] [place] [facility]) Herrear sutherland [facility] [place]) OUTPAT[place] [id number] RUFUS JAMES 11/29 Released w/o Limitations Herrera daniels [facility] [place] Re[place] Herrera sutherland [facility] [place]) [place] [id number] JD NEWMAN 11/30 Released w/o Limitations Herrera daniels [facility] [place]) Herrera sutherland [facility] [place] [facility]) OUTPATIENT [id number] REHAB GAONA, BLAINE L 11/30 Released with Work/Duty Limitations Herrera daniels [facility] [place] [facility]) Herrera sutherland [facility] [place] [facility]) INPATIENT [id number] WENCESLAO LUO 12/02 Inpatient- Still a Patient Herrera daniels [facility] [place] [facility]) Herrera sutherland [facility] [place]) [place] [id number] sx. f/u ANNMAYRAMARKRERE AVELAR 12/07 Released with Work/Duty Limitations Herrera [facility] [place] Herrera Melo r [facility] [place] [facility]) OUTPATIENT [id number] rehab WAYNEALLYSON HARRISON 12/08 Released with Work/Duty Limitations Herrera Julian [facility] [place] [facility]) Herrera sutherland [facility] [place] [facility]) OUTPATIENT [id number] rehab WAYNEALLYSON HARRISON C 12/14 Released with Work/Duty Limitations Herrera [facility] [place] [facility]) Herrera sutherland [facility] [place] [facility]) OUTPATIENT [id number] rehab BRANDI SHELLEY 12/15 Released with Work/Duty Limitations Herrera [facility] [place] [facility]) Herrera sutherland [facility] [place] [id number] MED REFILLS ABBIE MASSEY 12/15 Released w/o Limitations Herrera [facility] [place]) Herrera sutherland [facility] [place] [facility]) OUTPATIENT [id number] rehab WAYNEALLYSON HARRISON 12/16 Released with Work/Duty Limitations Herrera [facility] [place] [facility]) Herrera sutherland [facility] [place] TELE CONSULT [id number] Med Refill RUFUS JAMES 12/19 Herrera Julian [facility] [place]) Herrera Melo r [facility] [place] [facility]) OUTPATIENT [id number] rehab BRANDI SHELLEY Colleen 12/19 Released with Work/Duty Limitations Herrera Julian wer [facility] [place] [facility]) Herrera Melo r [facility] [place] [facility]) OUTPATIENT [id number] rehab ALLYSON BLACK 12/21 Released with Work/Duty Limitations Herrera Julian wer [facility] [place] [facility]) Herrera Melo r [facility] [place] [facility]) OUTPATIENT [id number] f/u WENCESLAO GREGG 12/23 Released with Work/Duty Limitations Herrera Julian wer [facility] [place] [facility]) Herrera Melo r [facility] [place] [facility]) OUTPATIENT [id number] REHAB ALLYSON BNEITEZ 12/26 Released w/o Limitations Herrera Julian wer [facility] [place] [facility]) Herrera Melo r [facility] [place] TELE CONSULT [id number] Med [facility] RUFUS JAMES 12/27 Herrera Julian wer [facility] [place]) Herrera Melo r [facility] [place] [facility]) OUTPATIENT [id number] REHAB PATRICE HAWK 12/28 Released w/o Limitations Herrera Julian wer [facility] [place] [facility]) Herrera Melo r [facility] [place] [facility]) OUTPATIENT [id number] REHAB ALLYSON TAVARES 12/30 Released w/o Limitations Herrera Julina wer [facility] [place] [facility]) Herrera Melo r [facility] [place]) [place] [id number] CTS PT Joao req CTS splint right JEROME CHAHAL 12/30 Released w/o Limitations Herrera daniels [facility] [place]) Herrera Melo r [facility] [place] [facility]) OUTPATIENT [id number] REHAB ALLYSON BENITEZ 01/02 Released w/o Limitations Herrera Julian wer [facility] [place] [facility]) Herrera Melo r [facility] [place] [facility]) OUTPATIENT [id number] REHAB CARINE PATRICE L 01/04 Released w/o Limitations Herrera Julian wer [facility] [place] [facility]) Herrera Melo r [facility] [place]) [place] [id number] CTS left PT Joao req CTS wrist brace left JEROME CHAHAL E 01/04 Released w/o Limitations Herrera daniels [facility] [place]) Herrera Melo r [facility] [place] [facility]) OUTPATIENT [id number] REHAB ALLYSON BLACK 01/06 Released with Work/Duty Limitations Herrera daniels [facility] [place] [facility]) Herrera Melo r [facility] [place] [facility] OUTPATIENT [id number] med refGUI Quezada 01/09 Released w/o Limitations Herrera daniels [facility] [place]) Herrera Melo r [facility] [place] [facility]) OUTPATIENT [id number] REHAB ALLYSON BLACK 01/09 Released with Work/Duty Limitations Herrera daniels [facility] [place] [facility]) Herrera Melo r [facility] [place] [facility]) OUTPATIENT [id number] REHAB ALLYSON BLACK 01/11 Released with Work/Duty Limitations Herrera daniels [facility] [place] [facility]) Herrera Melo r [facility] [place] [facility]) OUTPATIENT [id number] F/U PER WENCESLAO INGRAM Brandy 01/13 Released with Work/Duty Limitations Herrera Uso wer [facility] [place] [facility]) Herrera Sorensone r [facility] [place] [id number] f/u for insomni a GUI RICKETTS M 01/24 Released with Work/Duty Limitations Herrera Uso [facility] [place]) Herrera Parisenhdevone r [facility] [place] [facility]) OUTPATIENT [id number] rehab ALLYSON BLACK 01/24 Released with Work/Duty Limitations Herrera Uso wer [facility] [place] [facility]) Herrera Melo r [facility] [place] [id number] work up for RITA GUI RICKETTS M 01/25 Released with Work/Duty Limitations Herrera [facility] [place]) Herrera Melo r [facility] [place] [facility]) OUTPATIENT [id number] rehab TAWANDA ADAMES 01/26 Released with Work/Duty Limitations Herrera [facility] [place] [facility]) Herrera Melo r [facility] [place] [id number] RUFUS JAMES 01/26 Released w/o Limitations Herrera Julian wer [facility] [place] Re[place]) Herrera Melo r [facility] [place] [facility]) OUTPATIENT [id number] rehab TAWANDA ADAMES 01/27 Released with Work/Duty Limitations Herrera Uso wer [facility] [place] [facility]) Herrera Sorensone r [facility] [place] [facility]) OUTPATIENT [id number] rehab TAWANDA ADAMES 01/30 Released with Work/Duty Limitations Herrera Uso wer [facility] [place] [facility]) Herrera Melo r [facility] [place] [id number] f/u meds GUI RICKETTS 01/30 Released with Work/Duty Limitations Herrera daniels [facility] [place]) Herrera Melo r [facility] [place] [facility]) OUTPATIENT [id number] rehab ALLYSON BLACK 01/31 Released with Work/Duty Limitations Herrera Julian wer [facility] [place] [facility]) Herrera Melo r [facility] [place] [facility]) OUTPATIENT [id number] joint pain, localiz ed in the knee/PE R MELANIE LAWTON 02/01 Released with Work/Duty Limitations Herrera daniels [facility] [place] [facility]) Herrera Melo r [facility] [place] [facility]) OUTPATIENT [id number] request ed by kiara moreno/WENCESLAO Torrez 02/01 Released with Work/Duty Limitations Herrera daniels [facility] [place] [facility]) Herrera Melo r [facility] [place] [facility]) OUTPATIENT [id number] REHAB ALLYSON BLACK 02/03 Released with Work/Duty Limitations Herrera daniels [facility] [place] [facility]) Herrera Melo r [facility] [place] [id number] f/u meds GUI RICKETTS 02/03 Released with Work/Duty Limitations Herrera daniels [facility] [place]) Herrera Melo r [facility] [place] [facility]) OUTPATIENT [id number] [facility] ALLYSON BENITEZ 02/06 Released w/o Limitations Herrera daniels [facility] [place] [facility]) Herrera Melo r [facility] [place]) [place] [id number] MCL repair 08 November(L) PT Gregg req knee cage left DRAKE COKER 02/06 Released w/o Limitations Herrera Uso wer [facility] [place]) Herrera Sorensone r [facility] [place] [facility]) OUTPATIENT [id number] FLU DEBBY MELLO 02/06 Released w/o Limitations Herrera Uso wer [facility] [place] [facility]) Herrera Silverman Eishollye r [facility] [place] (Physic al Therapy [facility]) OUTPATIENT [id number] REHAB PATRICE HAWK 02/08 Released w/o Limitations Herrera Uso wer [facility] [place] (Phys ical Therapy [facility]) Herrera Sorensone r [facility] [place] ([facility] TELE CONSULT [id number] med refill GUI RICKETTS 02/08 Herrera Julian [facility] [place] ([facility]) Herrera Sorensone r [facility] [place] (Sleep Disorder) OUTPATIENT [id number] PSG AMELIA GARNETT 02/10 Released w/o Limitations Herrera Julian [facility] [place] (Slee p Disorde r) Herrera Sorensone r [facility] [place] ([facility] OUTPATIENT [id number] 1 wk f/u labs GUI RICKETTS 02/10 Released with Work/Duty Limitations Herrera Julian wer [facility] [place] ([facility]) Herrera Sorensone r [facility] [place] (Physic al Therapy [facility]) OUTPATIENT [id number] REHAB TAWANDA ADAMES 02/10 Released with Work/Duty Limitations Herrera Julian wer [facility] [place] [facility]) Herrera Sorensone r [facility] [place] [facility]) OUTPATIENT [id number] REHAB ALLYSON BLACK 02/13 Released with Work/Duty Limitations Herrera Julian wer [facility] [place] [facility]) Herrera Parisenhdevone r [facility] [place] [facility]) OUTPATIENT [id number] REHAB ALLYSON BLACK 02/15 Released with Work/Duty Limitations Herrera Uso wer [facility] [place] [facility]) Herrera Sorensone r [facility] [place] [facility] [id number] [facility] Boudreaux 02/17 Released with Work/Duty Limitations Herrera Uso wer [facility] [place]) Herrera Sorensone r [facility] [place] [facility]) OUTPATIENT [id number] F/U 7 REHAB WENCESLAO GREGG 02/17 Released with Work/Duty Limitations Herrera Uso wer [facility] [place] [facility]) Herrera Melo r [facility] [place]) [place] [id number] check DRAKE Olmedo 02/17 Released w/o Limitations Herrera Julian wer [facility] [place]) Herrera Sorensone r [facility] [place] [facility]) OUTPATIENT [id number] walkin rehab ALLYSON BLACK 02/21 Released with Work/Duty Limitations Herrera Julian wer [facility] [place] [facility]) Herrera Melo r [facility] [place] [id number] AMELIA GARNETT 02/23 Released w/o Limitations Herrera Julian wer [facility] [place]de [place]) Herrera Parisenhdevone r [facility] [place] [facility]) OUTPATIENT [id number] w/in treatme nt ALLYSON BLACK 02/23 Released with Work/Duty Limitations Herrera Uso wer [facility] [place] [facility]) Herrera Sorensone r [facility] [place] OUT[facility]IENT [id number] [facility] hospital[facility] Boudreaux 02/24 Released with Work/Duty Limitations [facility] [place]) Herrera Melo r [facility] [place] [facility]) OUTPATIENT [id number] rehab ALLYSON BLACK 02/24 Released with Work/Duty Limitations Herrera [facility] [place] [facility]) Herrera Melo r [facility] [place] [place] [facility] OUTPAT[place] [id number] RUFUS JAMES 02/24 Released w/o Limitations Herrera [facility] [place] Medic[place] & Rehab) Herrera Melo r [facility] [place] [facility]) OUTPATIENT [id number] rehab TAWANDA ADAMES 02/28 Released with Work/Duty Limitations Herrera [facility] [place] [facility]) Herrera Melo r [facility] [place] [id number] GUI Franz 03/01 Released with Work/Duty Limitations [facility] [place]) Herrera Melo r [facility] [place] [facility]) OUTPATIENT [id number] rehab TAWANDA ADAMES 03/01 Released with Work/Duty Limitations [facility] [place] [facility]) Herrera Melo r [facility] [place] [facility]) OUTPATIENT [id number] WENCESLAO GREGG 03/08 Released with Work/Duty Limitations Herrera [facility] [place] [facility]) Herrera Melo r [facility] [place]) [place] [id number] RERE ZARAGOZA 03/08 Released with Work/Duty Limitations [facility] [place] Herrera Melo r [facility] [place] [id number] GUI Franz 03/10 Released with Work/Duty Limitations Herrera daniels [facility] [place]) Herrera sutherland [facility] [place] [facility]) OUTPATIENT [id number] rehab ALLYSON BLACK 03/10 Released with Work/Duty Limitations Herrera daniels [facility] [place] [facility]) Herrera Melo r [facility] [place] [facility]) OUTPATIENT [id number] rehab TAWANDA ADAMES 03/14 Released with Work/Duty Limitations Herrera daniels [facility] [place] [facility]) Herrera Melo r [facility] [place]) [place] [id number] RERE ZARAGOZA 03/16 Released with Work/Duty Limitations Herrera daniels [facility] [place] Herrera sutherland [facility] [place] [id number] med reactio GUI Portillo 03/16 Released with Work/Duty Limitations Herrera daniels [facility] [place]) Herrera Melo r [facility] [place] [facility]) OUTPATIENT [id number] rehab s/p injecti on OTONIEL FELIPE 03/16 Released with Work/Duty Limitations Herrera daniels [facility] [place] [facility]) Herrera Melo r [facility] [place] [id number] GUI Franz 03/17 Released with Work/Duty Limitations Herrera Uso wer [facility] [place]) Herrera Melo r [facility] [place] [facility]) OUTPATIENT [id number] rehab ALLYSON BLACK 03/17 Released with Work/Duty Limitations Herrera Julian wer [facility] [place] [facility]) Herrera Melo r [facility] [place] [facility]) OUTPATIENT [id number] rehab TAWANDA ADAMES 03/21 Released with Work/Duty Limitations Herrera Julian wer [facility] [place] [facility]) Herrera Melo r [facility] [place] [facility]) OUTPATIENT [id number] GREGGWENCESLAO COCHRAN Brandy 03/21 Released with Work/Duty Limitations Herrera Uso wer [facility] [place] [facility]) Herrera Melo r [facility] [place] [place] [facility] [place]) TELE CONSULT [id number] Med Refill COREEN LARA 03/22 Herrera Uso wer [facility] [place] Medic[place] & Rehab) Herrera Melo r [facility] [place] TELE CONSULT [id number] Med Refill COREEN LARA 03/23 Herrera Julian wer [facility] [place] Re[place]) Herrera Melo r [facility] [place] [facility]) OUTPATIENT [id number] prime pt/eye exam CASANDRA ENG 03/27 Released w/o Limitations Herrera daniels [facility] [place]Opt[place] [facility]) Herrera Melo r [facility] [place] [id number] RONI STRONG 03/28 Released w/o Limitations Herrera Julian wer [facility] [place]) Herrera Melo r [facility] [place] [id number] meds RONI STRONG 03/29 Released w/o Limitations Herrera Julian wer [facility] [place]) Herrera Melo r [facility] [place] [facility]) OUTPATIENT [id number] fitting SHA JANSEN 04/13 Released w/o Limitations Herrera Uso wer [facility] [place] [facility]) Herrera Melo r [facility] [place] [facility]) OUTPATIENT [id number] fitting SHA JANSEN A 04/14 Released w/o Limitations [facility]rera dan[facility] Barbara EMERSON([facility]) Herrera sutherland [facility]) OUTPATIENT [id number] meds KELLY SAPP E 04/14 Released with Work/Duty Limitations Herrera daniels [facility] Barbara EMERSON([facility]) Herrera Melo r [facility] Barbara EMERSON([facility]) OUTPATIENT [id number] f/u KELLY SAPP E 04/14 Released w/o Limitations Herrera daniels [facility] Barbara EMERSON([facility]) Herrera sutherland [facility] Barbara EMERSON(Physic al Medicine & Rehab) TELE CONSULT [id number] [facility] Peggy JAMESRUFUSDEVIN 04/14 Herrera daniels [facility] Barbara EMERSON(Phys ical Medicin e & Rehab) Herrera sutherland [facility] Barbara EMERSON(Opt[facility] try [facility]) OUTPATIENT [id number] fitting SHA JANSEN A 04/17 Released w/o Limitations Herrera daniels [facility] Barbara EMERSON(Opto metry [facility]) Herrera sutherland [facility] Barbara EMERSON(Physic al Therapy [facility]) OUTPATIENT [id number] F/U 3 WKS WENCESLAO GREGG 04/19 Released with Work/Duty Limitations Herrera daniels [facility] Barbara EMERSON(Phys ical Therapy [facility]) Herrera sutherland [facility] Barbara [facility]ERSON([facility] OUTPATIENT [id number] meds/fi nal appt KELLY SAPP E 04/21 Released with Work/Duty Limitations Herrera daniels [facility] Barbara EMERSON([facility]) Herrera sutherland [facility] Barbara EMERSON(Orthot ic Lab) OUTPATIENT [id number] LBP PT Gregg req JEROME Mcnulty E 04/21 Released w/o Limitations Herrera daniels [facility] Barbara EMERSON(Orth otic Lab) [place]Psych[place]ry) OUTPATIENT [id number] TDRL poc JOJO Daniels 10/16 Released w/o Limitations [place]) [place] OUTPATIENT [id number] ROM for TDRL l spint and left knee. FERDINAND ADAM 10/16 Released w/o Limitations [place] OUTPATIENT [id number] Pas entered the order TDRL per TASNEEM Lo 10/29 Released w/o Limitations [place] [facility] Outpatient Encounter [id number] Diagnos is: ICD-10- CM M54.59 Other low back pain
GALEN WINSTON A 10/20 [facility] Outpatient Encounter [id number] 10/24 [facility] Outpatient Encounter [id number] 11/06 [facility] Outpatient Encounter [id number] 11/06 [facility] Outpatient Encounter [id number] SANGEETA PICHARDO 11/13 [facility] OFFICE O/P EST LOW 20-29 MIN [id number] Diagnos is: ICD-10- CM M54.50 Low back pain, unspeci fied
GALEN WINSTON A 11/13 [facility] Outpatient Encounter [id number] 11/23 [facility] Outpatient Encounter [id number] 12/07 [place] [facility] [place] [facility] OFFICE O/P EST MOD 30-39 MIN [id number] Diagnos is: ICD-10- CM F41.9 Anxiety disorde r, unspeci fied
LESLY TRAORE 12/17 [place] [facility] [place] [facility] Outpatient Encounter [id number] 12/18 [place] [facility] [place] [facility] Outpatient Encounter [id number] 01/22 [place] [facility] [place] [facility] Outpatient Encounter [id number] 01/25 [place] [facility] [place] [facility] Outpatient Encounter [id number] 02/08 [place] [facility] [place] [facility] PRO PHONE CALL 21-30 MIN [id number] Diagnos is: ICD-10- CM F43.10 Post-tr aumatic stress disorde r, unspeci fied
RAMEZ EVANS 02/10 [place] [facility] [place] [facility] OFFICE O/P EST LOW 20-29 MIN [id number] Diagnos is: ICD-10- CM F43.10 Post-tr aumatic stress disorde r, unspeci fied
LESLY TRAORE 02/15 [place] [facility] [place] [facility] Outpatient Encounter [id number] 03/03 [place] [facility] [place] [facility] Outpatient Encounter [id number] 03/15 [place] [facility] [place] [facility] Outpatient Encounter [id number] 03/19 [place] [facility] [place] [facility] Outpatient Encounter [id number] 04/21 [place] [facility] [place] [facility] Outpatient Encounter [id number] 04/26 [place] [facility] [place] [facility] Outpatient Encounter [id number] 05/06 [place] [facility] [place] [facility] PT EDUCATION NOC INDIVID [id number] Diagnos is: ICD-10- CM G47.33 Obstruc tive sleep apnea (adult) (pediat emanuel)
KATYJOE ICA S 05/18 [place] [facility] [place] [facility] Outpatient Encounter [id number] 05/19 [place] [facility] [place] [facility] Outpatient Encounter [id number] 05/19 [place] [facility] [place] [facility] PT EDUCATION NOC INDIVID [id number] Diagnos is: ICD-10- CM G47.33 Obstruc tive sleep apnea (adult) (pediat emanuel)
KATYJOE ICA S 05/20 [place] [facility] [place] [facility] Outpatient Encounter [id number] 05/27 [place] [facility] [place] [facility] Outpatient Encounter [id number] 06/24 [facility] [place] [facility] OFFICE O/P EST HI 40-54 MIN [id number] Diagnos is: ICD-10- CM M54.59 Other low back pain
MALIK WINSTONN A 06/24 [place] [facility] [place] [facility] Outpatient Encounter [id number] 06/24 [place] [facility] [place] [facility] THERAPEUTI C EXERCISES [id number] Diagnos is: ICD-10- CM M25.512 Pain in left shoulde r
Chavo HICKEY E 06/24 [place] [facility] [place] [facility] Outpatient Encounter [id number] 06/25 [place] [facility] [place] [facility] Outpatient Encounter [id number] 06/29 [facility] OFFICE O/P EST MOD 30-39 MIN [id number] Diagnos is: ICD-10- CM F43.10 Post-tr aumatic stress disorde r, unspeci fied
LESLY TRAORE 07/09 [facility] OFF/OP CONSLTJ NEW/EST HI 55 [id number] Diagnos is: ICD-10- CM I63.9 Cerebra l infarct ion, unspeci fied
SALLY CRUZ 08/03 [facility] Outpatient Encounter [id number] 08/04 [facility] Outpatient Encounter [id number] 08/26 [facility] PT EDUCATION NOC INDIVID [id number] Diagnos is: ICD-10- CM G47.33 Obstruc tive sleep apnea (adult) (pediat emanuel)
JEO BURNS S 08/31 [facility] Outpatient Encounter [id number] LESLY TRAORE 09/02 [facility] Outpatient Encounter [id number] GALEN WINSTON A 09/02 [facility] Outpatient Encounter [id number] RAMEZ EVANS A 09/29 [facility] PSYTX W PT W E/M 30 MIN [id number] Diagnos is: ICD-10- CM F43.10 Post-tr aumatic stress disorde r, unspeci fied
LESLY TRAORE 10/20 [place] [facility] [place] [facility] Outpatient Encounter [id number] 10/21 [place] [facility] [place] [facility] MTMS BY PHARM SPECIALIST ICU 15 MIN [id number] Diagnos is: ICD-10- CM E66.9 Obesity , unspeci fied
Kike HULL R 10/25 [place] [facility] [place] [facility] QNHP OL DIG ASSMT&MGMT 02-28 [id number] Diagnos is: ICD-10- CM E66.9 Obesity , unspeci fied
BEATRIZ ROSASORACIO 10/26 [place] [facility] [place] [facility] PSYTX W PT 45 MINUTES [id number] Diagnos is: ICD-10- CM F43.10 Post-tr aumatic stress disorde r, unspeci fied
TRUMBKALEIGH,C RYSTAL 10/26 [place] [facility] [facility] [place] [facility] Outpatient Encounter [id number] 10/28 [place] [facility] [place] [facility] PSYTX W PT 45 MINUTES [id number] Diagnos is: ICD-10- CM F43.10 Post-tr aumatic stress disorde r, unspeci fied
TRUMBULL,C RYSTAL 11/08 [place] [facility] [facility] [place] [facility] Outpatient Encounter [id number] 11/22 [place] [facility] [place] [facility] Outpatient Encounter [id number] RAMEZ EVANS 11/22 [place] [facility] [place] [facility] MTMS BY PHARM EST 15 MIN [id number] Diagnos is: ICD-10- CM E66.9 Obesity , unspeci fied
Kike HULL R 11/22 [facility] PSYTX W PT 45 MINUTES [id number] Diagnos is: ICD-10- CM F43.10 Post-tr aumatic stress disorde r, unspeci fied
MIGUELZULEMAKALEIGHMartell MEDRANO 11/29 [facility] Outpatient Encounter [id number] 12/07 [facility] Outpatient Encounter [id number] 12/15 [facility] OFFICE O/P EST LOW 20-29 MIN [id number] Diagnos is: ICD-10- CM G47.33 Obstruc tive sleep apnea (adult) (pediat emanuel)
WILLIAM BRIGGS 12/15 [facility] Outpatient Encounter [id number] 12/15 [facility] SELF CARE MNGMENT TRAINING [id number] Diagnos is: ICD-10- CM M54.50 Low back pain, unspeci fied
CAREN MIR D 12/16 [facility] Outpatient Encounter [id number] Calvin CUELLAR 12/16 [facility] Outpatient Encounter [id number] MORTEZA GARAY D 12/16 [facility] Outpatient Encounter [id number] JOANNA WELLS 12/23 [facility] Outpatient Encounter [id number] 01/10 [facility] [place] [facility] Outpatient Encounter [id number] RAMEZ EVANS TH A 01/10 [place] [facility] [place] [facility] PSYTX W PT 45 MINUTES [id number] Diagnos is: ICD-10- CM F43.10 Post-tr aumatic stress disorde r, unspeci fied
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, lumbosa cral region< br/> CAREN MIR LD D 01/19 [facility] [place] [facility] Outpatient Encounter [id number] 01/19 [place] [facility] [place] [facility] Outpatient Encounter [id number] Calvin CUELLAROLE M 01/19 [facility] [place] [facility] Outpatient Encounter [id number] SAJI DYE 01/21 [place] [facility] PSYTX W PT W E/M 30 MIN [id number] Diagnos is: ICD-10- CM F43.10 Post-tr aumatic stress disorde r, unspeci fied
LESLY TRAORE 01/21 [place] [facility] [place] [facility] Outpatient Encounter [id number] RAMEZ EVANS TH A 02/01 [place] [facility] [place] [facility] Outpatient Encounter [id number] 02/02 [place] [facility] [place] [facility] Outpatient Encounter [id number] 02/08 [place] [facility] [place] [facility] Outpatient Encounter [id number] 02/09 [facility] [place] [facility] Outpatient Encounter [id number] 02/09 [place] [facility] [place] [facility] Outpatient Encounter [id number] 02/09 [place] [facility] [place] [facility] Outpatient Encounter [id number] 02/14 [facility] [place] [facility] Outpatient Encounter [id number] 02/14 [facility] [place] [facility] Outpatient Encounter [id number] 02/22 [facility] [place] [facility] Outpatient Encounter [id number] 02/23 [facility] NRV CNDJ TEST 7-8 STUDIES [id number] Diagnos is: ICD-10- CM S84.12X S Injury of peronea l nrv at lower leg level, left leg, sequela
SANGEETA MAI M 03/02 [facility] [place] [facility] Outpatient Encounter [id number] 03/07 [facility] OFFICE O/P EST LOW 20-29 MIN [id number] Diagnos is: ICD-10- CM Z98.1 Arthrod esis status< br/> MARIA ESTHER SOARES 03/15 [facility] IMMUNIZATI ON ADMIN [id number] Diagnos is: ICD-10- CM Z23 Encount er for immuniz ation<b r/> REINIER MIRAMONTES 03/15 [facility] Procedures Combined list of: 1) Procedures from Department of Veterans Affairs facilities going back up to thelast 18 months, not all [place] non-surgical procedures are included; 2) All procedures from the Department of Defense facilities. Procedure Procedure Type Code Date Perfomer Comments Sourc e Injection, ketorolac tromethamine, per 15 mg 05/06 ABBIE MASSEY Ketorolac Tromethamine Injection MCC 60mg/ 2ml Man: Jennyfer Martinez LOT#[id number] JUN 16 [facility] Influenza Split Virus Vaccine 0.5mL Dosage Intramuscular 05/05 IAN VALDEZ [facility] Immunization Administration By Injection, One Vaccine Immunization Administration By Injection, One Vaccine 41823 05/05 IAN VALDEZ [facility] Skin Test Anergy Tuberculin Intradermal Skin Test Anergy Tuberculin Intradermal 33237 05/05 IAN VALDEZ [facility] Psychiatric Diagnostic Evaluation Comprehensive Examination 05/03 RONI SHARPE [facility] Physical Medicine - Group Physical Therapy Se ion Physical Medicine - Group Physical Therapy Session 57234 11/30 BLAINE GAONA [facility] Physical Therapy: ___ Se ion Segments, 15 Minutes Each Physical Therapy: ___ Session Segments, 15 Minutes Each 44427 11/30 BLAINE GAONA [facility] Modalities Cryotherapy Cold Packs Modalities Cryotherapy Cold Packs 24787 11/30 BLAINE GAONA [facility] Motor - Performing Examination - Body Excluding Hands 11/29 RUFUS JAMES [facility] Physical Medicine - Group Physical Therapy Se ion Physical Medicine - Group Physical Therapy Session 88539 11/28 BLAINE GAONA Modalities Cryotherapy Cold Packs Modalities Cryotherapy Cold Packs 93095 11/28 BLAINE GAONA [facility] Physical Therapy: ___ Se ion Segments, 15 Minutes Each Physical Therapy: ___ Session Segments, 15 Minutes Each 54450 11/28 BLAINE GAONA [facility] Physical Therapy: ___ Se ion Segments, 15 Minutes Each Physical Therapy: ___ Session Segments, 15 Minutes Each 98698 11/25 BLAINE GAONA Modalities Cryotherapy Cold Packs Modalities Cryotherapy Cold Packs 52697 11/25 BLAINE GAONA [facility] Physical Medicine - Group Physical Therapy Se ion Physical Medicine - Group Physical Therapy Session 53233 11/25 BLAINE GAONA [facility] Modalities Cryotherapy Cold Packs Modalities Cryotherapy Cold Packs 07228 11/23 BLAINE GAONA [facility] Physical Therapy: ___ Se ion Segments, 15 Minutes Each Physical Therapy: ___ Session Segments, 15 Minutes Each 51066 11/23 BLAINE GAONA [facility] Physical Medicine - Group Physical Therapy Se ion Physical Medicine - Group Physical Therapy Session 30921 11/23 BLAINE GAONA [facility] Modalities Cryotherapy Cold Packs Modalities Cryotherapy Cold Packs 20123 11/22 BLAINE GAONA [facility] Physical Medicine - Group Physical Therapy Se ion Physical Medicine - Group Physical Therapy Session 51627 11/22 BLAINE GAONA [facility] Physical Therapy: ___ Se ion Segments, 15 Minutes Each Physical Therapy: ___ Session Segments, 15 Minutes Each 28930 11/22 BLAINE GAONA [facility] Modalities Cryotherapy Cold Packs Modalities Cryotherapy Cold Packs 51226 11/17 BLAINE GAONA [facility] Physical Therapy: ___ Se ion Segments, 15 Minutes Each Physical Therapy: ___ Session Segments, 15 Minutes Each 58283 11/17 BLAINE GAONA [facility] Physical Medicine - Group Physical Therapy Se ion Physical Medicine - Group Physical Therapy Session 99312 11/17 BLAINE GAONA [facility] Psychiatric Diagnostic Evaluation Comprehensive Examination 11/16 ANNA MORENO [facility] Modalities Cryotherapy Cold Packs Modalities Cryotherapy Cold Packs 40524 11/16 BLAINE GAONA [facility] Physical Therapy: ___ Se ion Segments, 15 Minutes Each Physical Therapy: ___ Session Segments, 15 Minutes Each 71451 11/16 BLAINE GAONA [facility] Physical Medicine - Group Physical Therapy Se ion Physical Medicine - Group Physical Therapy Session 65873 11/16 BLAINE GAONA [facility] Health And Behavior Intervention, Each Additional 15 Minutes Individual 11/15 CARLY CREWS [facility] Health And Behavior Intervention, Each Additional 15 Minutes Individual 11/14 CARLY CREWS [facility] A isted Exercises For ROM Assisted Exercises For ROM 53471 11/11 WENCESLAO GREGG Ankle pumps c Tband, SLR, Knee bending, and Quads sets. [facility] Physical Therapy Service Evaluation 11/11 WENCESLAO GREGG [facility] Health And Behavior Intervention, Each Additional 15 Minutes Individual 11/10 CARLY CREWS [facility] Phys Therapy Education Self Care Training - Per 15 Minutes Phys Therapy Education Self Care Training - Per 15 Minutes 87276 11/02 REYNA LOBATO [facility] Psychotherapy With Medication Management 11/01 SANDRO ACOSTA [facility] Modalities Cryotherapy Cold Packs Modalities Cryotherapy Cold Packs 52757 10/31 BLAINE GAONA [facility] Physical Medicine - Group Physical Therapy Se ion Physical Medicine - Group Physical Therapy Session 68093 10/31 BLAINE GAONA [facility] Physical Medicine - Group Physical Therapy Se ion Physical Medicine - Group Physical Therapy Session 34396 10/28 BLAINE GAONA A isted Exercises For ROM Assisted Exercises For ROM 88038 10/19 ALLYSON BENITEZ [facility] Physical Therapy Service Re-Evaluation 10/19 ALLYSON BENITEZ [facility] Psychotherapy Individual Approximately 45 Minutes 10/06 RONI LONG [facility] Physical Therapy: ___ Se ion Segments, 15 Minutes Each Physical Therapy: ___ Session Segments, 15 Minutes Each 54632 10/06 BLAINE GAONA Modalities Cryotherapy Cold Packs Modalities Cryotherapy Cold Packs 26250 10/06 BLAINE GAONA [facility] Physical Medicine - Group Physical Therapy Se ion Physical Medicine - Group Physical Therapy Session 53408 10/06 BLAINE GAONA [facility] Psychiatric Therapy Preparation of Psychiatric Status Report Psychiatric Therapy Preparation of Psychiatric Status Report 96944 10/05 SANDRO ACOSTA [facility] Psychiatric Diagnostic Evaluation Comprehensive Examination 10/05 SANDRO ACOSTA [facility] Modalities Cryotherapy Cold Packs Modalities Cryotherapy Cold Packs 36220 10/05 BLAINE GAONA [facility] Physical Medicine - Group Physical Therapy Se ion Physical Medicine - Group Physical Therapy Session 73009 10/05 BLAINE GAONA [facility] Physical Therapy: ___ Se ion Segments, 15 Minutes Each Physical Therapy: ___ Session Segments, 15 Minutes Each 69840 10/05 BLAINE GAONA [facility] Physical Medicine - Group Physical Therapy Se ion Physical Medicine - Group Physical Therapy Session 07770 10/04 BLAINE GAONA [facility] Physical Therapy: ___ Se ion Segments, 15 Minutes Each Physical Therapy: ___ Session Segments, 15 Minutes Each 02083 10/04 BLAINE GAONA [facility] Modalities Cryotherapy Cold Packs Modalities Cryotherapy Cold Packs 11620 10/04 BLAINE GAONA Psychotherapy With Medication Management 09/29 SANDRO ACOSTA [facility] Physical Therapy: ___ Se ion Segments, 15 Minutes Each Physical Therapy: ___ Session Segments, 15 Minutes Each 26552 09/29 BLAINE GAONA [facility] Modalities Cryotherapy Cold Packs Modalities Cryotherapy Cold Packs 83494 09/29 BLAINE GAONA [facility] Physical Medicine - Group Physical Therapy Se ion Physical Medicine - Group Physical Therapy Session 75401 09/29 BLAINE GAONA [facility] Physical Therapy: ___ Se ion Segments, 15 Minutes Each Physical Therapy: ___ Session Segments, 15 Minutes Each 18810 09/27 BLAINE GAONA Physical Medicine - Group Physical Therapy Se ion Physical Medicine - Group Physical Therapy Session 28128 09/27 BLAINE GAONA [facility] Modalities Cryotherapy Cold Packs Modalities Cryotherapy Cold Packs 66579 09/27 BLAINE GAONA [facility] Patient Training And Self-Care Skills Patient Training And Self-Care Skills 19351 09/23 ALLYSON BENITEZ [facility] A isted Exercises For ROM Assisted Exercises For ROM 04915 09/21 ALLYSON BENITEZ Physical Therapy Service Re-Evaluation 09/21 ALLYSON BENITEZ Knee orthosis, elastic with joints, prefabricated, includes fitting and adjustment 09/16 DRAKE COKER Knee orthosis, double upright, thigh and calf, with adjustable flexion and extension joint (unicentric or polycentric), medial-lateral and rotation control, with or without varus/valgus adjustment, prefabricated, includes fitting and adjustment 09/16 DRAKE COKER Modalities Electrical Stimulation Modalities Electrical Stimulation 06468 09/14 BLAINE GAONA [facility] Physical Therapy: ___ Se ion Segments, 15 Minutes Each Physical Therapy: ___ Session Segments, 15 Minutes Each 22505 09/14 BLAINE GAONA Physical Medicine - Group Physical Therapy Se ion Physical Medicine - Group Physical Therapy Session [id number] 09/14 BLAINE GAONA Modalities Electrical Stimulation Modalities Electrical Stimulation 96300 09/13 BLAINE GAONA Physical Therapy: ___ Se ion Segments, 15 Minutes Each Physical Therapy: ___ Session Segments, 15 Minutes Each 50289 09/13 BLAINE GAONA Physical Medicine - Group Physical Therapy Se ion Physical Medicine - Group Physical Therapy Session 58156 09/13 BLAINE GAONA Psychotherapy With Medication Management 09/13 SANDRO ACOSTA Cardiac Stre Test By Pharmacologic Challenge Cardiac Stress Test By Pharmacologic Challenge 20077 09/13 JAMI MOORE Motor - Performing Exam - Extremity (not hand) 09/09 COREEN LARA EMG Of Two Extremities and Related Paraspinal Areas EMG Of Two Extremities and Related Paraspinal Areas 59649 09/09 COREEN LARA NCS Right Tibial Nerve Motor Function 09/09 COREEN LARA Nerve Conduct Studies - 'H' Reflex Gastrocnemius/Soleus Musc 09/09 COREEN LARA NCS Left Tibial Nerve Sensory Function (Sural) 09/09 COREEN LARA NCS Left Peroneal Nerve Motor Function 09/09 COREEN LARA Modalities Electrical Stimulation Modalities Electrical Stimulation 86667 09/08 BLAINE GAONA Physical Medicine - Group Physical Therapy Se ion Physical Medicine - Group Physical Therapy Session [id number] 09/08 BLAINE GAONA [facility] Physical Therapy: ___ Se ion Segments, 15 Minutes Each Physical Therapy: ___ Session Segments, 15 Minutes Each 95894 09/08 BLAINE GAONA Modalities Cryotherapy Cold Packs Modalities Cryotherapy Cold Packs 88545 09/08 BLAINE GAONA Modalities Electrical Stimulation Modalities Electrical Stimulation 35357 09/02 BLAINE GAONA Physical Medicine - Group Physical Therapy Se ion Physical Medicine - Group Physical Therapy Session 65643 09/02 BLAINE GAONA Physical Therapy: ___ Se ion Segments, 15 Minutes Each Physical Therapy: ___ Session Segments, 15 Minutes Each 71040 09/02 BLAINE GAONA Range Of Motion Evaluation Of Extremity Range Of Motion Evaluation Of Extremity 56729 10/16 FERDINAND ADAM LSO, corset front 04/21 JEROME CHAHAL Physical Therapy Service Re-Evaluation 04/19 WENCESLAO RGEGG Psychotherapy Individual Approx 30 Min W/ Medical Evaluation & Management 04/17 RENAE PEÑA Spectacles Services Fitting Monofocal Except For Aphakia Spectacles Services Fitting Monofocal Except For Aphakia 06837 04/17 SHA JANSEN Arthrocentesis Injection Of Knee Joint Arthrocentesis Injection Of Knee Joint 69312 03/28 RERE ZARAGOZA Computerized Corneal Topography Computerized Corneal Topography 66326 03/27 CASANDRA ENG Spectacles Services Fitting Monofocal Except For Aphakia Spectacles Services Fitting Monofocal Except For Aphakia 31127 03/27 CASANDRA ENG Determination Of Refractive State Determination Of Refractive State 79217 03/27 CASANDRA ENG Ophthalmological Prior Patient Start Intermediate Level Care Ophthalmological Prior Patient Start Intermediate Level Care 52844 03/27 CASANDRA ENG Psychotherapy Individual Approx 30 Min W/ Medical Evaluation & Management 03/24 RENAE PEÑA Psychotherapy Individual Approx 30 Min W/ Medical Evaluation & Management 03/22 RENAE PEÑA Psychotherapy Individual Approx 30 Min W/ Medical Evaluation & Management 03/21 RENAE PEÑA Physical Therapy Service Re-Evaluation 03/21 WENCESLAO GREGG Physical Therapy: ___ Se ion Segments, 15 Minutes Each Physical Therapy: ___ Session Segments, 15 Minutes Each 72114 03/21 TAWANDA ADAMES A isted Exercises For [place] 75334 03/21 TAWANDA ADAMES Physical Therapy: ___ Se ion Segments, 15 Minutes Each Physical Therapy: ___ Session Segments, 15 Minutes Each 26841 03/17 ALLYSON BLACK A isted Exercises For ROM Assisted [place]ises [place] ROM 87272 03/17 ALLYSON BLACK A isted Exercises [place] 59817 03/16 OTONIEL FELIPE Ortho's request ~ to ride a bike s/p injection in knee [place] Physical Therapy: ___ Se ion Segments, 15 Minutes Each Physical Therapy: ___ Session Segments, 15 Minutes Each 15359 03/14 TAWANDA ADAMES A isted Exercises For [place] 94134 03/14 TAWANDA ADAMES isted Exercises [place] 29811 03/10 ALLYSON BLACK Physical Therapy Service Re-Evaluation 03/08 WENCESLAO GREGG Physical Therapy: ___ Se ion Segments, 15 Minutes Each Physical Therapy: ___ Session Segments, 15 Minutes Each 11288 03/01 TAWANDA ADAMES Physical Medicine - Group Physical Therapy Se ion Physical Medicine - Group Physical Therapy Session 73660 03/01 TAWANDA ADAMES A isted Exercises For [place] 51087 03/01 TAWANDA ADAMES Physical Therapy: ___ Se ion Segments, 15 Minutes Each Physical Therapy: ___ Session Segments, 15 Minutes Each 52021 02/28 TAWANDA ADAMES Physical Medicine - Group Physical Therapy Se ion Physical Medicine - Group Physical Therapy Session 64836 02/28 TAWANDA ADAMES isted Exercises [place] 60823 02/28 TAWANDA ADAMES A isted Exercises [place] 73568 02/24 ALLYSON BLACK A isted Exercises [place] 12130 02/23 ALLYSON BLACK Psychotherapy With Medication Management 02/23 SANDRO ACOSTA Polysomnography W/ 4+ Add'l Sleep Myles & Initiation Of CPAP/Bilev Vent 02/23 AMELIA GARNETT isted Exercises [place] 31093 02/21 ALLYSON BLACK [employer] Captain Educ Orthotics Training Each Additional 15 Minutes 02/17 DRAKE COKER Physical Therapy Service Re-Evaluation 02/17 WENCESLAO GREGG Physical Therapy: ___ Se ion Segments, 15 Minutes Each Physical Therapy: ___ Session Segments, 15 Minutes Each 10954 02/15 ALLYSON BLACK Modalities Ultrasound Modalities Ultrasound 65464 02/15 ALLYSON BLACK Modalities Ultrasound Modalities Ultrasound 24862 02/13 ALLYSON BLACK Physical Therapy: ___ Se ion Segments, 15 Minutes Each Physical Therapy: ___ Session Segments, 15 Minutes Each 46836 02/13 ALLYSON BLACK Physical Therapy: ___ Se ion Segments, 15 Minutes Each Physical Therapy: ___ Session Segments, 15 Minutes Each 95345 02/10 TAWANDA ADAMES Modalities Ultrasound Modalities Ultrasound 42299 02/10 TAWANDA ADAMES Physical Medicine - Group Physical Therapy Se ion Physical Medicine - Group Physical Therapy Session 97283 02/10 TAWANDA ADAMES Polysomnography With Four Or More Additional Sleep Parameters 02/10 AMELIA GARNETT Influenza Virus Vaccine Intranasal Live Attenuated 02/09 DEBBY TATUM Physical Medicine - Group Physical Therapy Se ion Physical Medicine - Group Physical Therapy Session 79120 02/08 ALLYSON BENITEZ A isted Exercises [place] 90917 02/08 ALLYSON BENITEZ Modalities Ultrasound Modalities Ultrasound 97061 02/08 PATRICE AHWK Knee orthosis, elastic with joints, prefabricated, includes fitting and adjustment 02/07 DRAKE COKER Phys Therapy Education Self Care Training - Per 15 Minutes Phys Therapy Education Self Care Training - Per 15 Minutes 97064 02/06 MELANIE WU Physical Therapy Service Evaluation 02/06 MELANIE WU A isted Exercises For ROM Assisted Exercises For ROM 11651 02/03 ALLYSON BLACK Physical Medicine - Group Physical Therapy Se ion Physical Medicine - Group Physical Therapy Session 35577 02/03 ALLYSON BLACK Physical Therapy Service Re-Evaluation 02/01 WENCESLAO GREGG Psychotherapy With Medication Management 01/31 SANDRO ACOSTA Physical Medicine - Group Physical Therapy Se ion Physical Medicine - Group Physical Therapy Session 34290 01/31 ALLYSON BLACK A isted Exercises For ROM Assisted [place]ercises [place] ROM 11136 01/31 ALLYSON BLACK Physical Medicine - Group Physical Therapy Se ion Physical Medicine - Group Physical Therapy Session 60203 01/30 TAWANDA ADAMES A isted Exercises [place] 85396 01/30 TAWANDA ADAMES Physical Medicine - Group Physical Therapy Se ion Physical Medicine - Group Physical Therapy Session 22966 01/27 TAWANDA ADAMES A isted Exercises [place] 51801 01/27 TAWANDA ADAMES Motor - Performing Examination - Body Excluding Hands 01/26 RUFUS JAMES Physical Medicine - Group Physical Therapy Se ion Physical Medicine - Group Physical Therapy Session 15007 01/26 TAWANDA ADAMES A isted Exercises For ROM Ass[place] 27741 01/26 TAWANDA ADAMES A isted Exercises [place] 12751 01/24 ALLYSON BLACK Physical Therapy Service Re-Evaluation 01/13 WENCESLAO GREGG A isted Exercises [place] 28709 01/11 ALLYSON BLACK Physical Therapy: ___ Se ion Segments, 15 Minutes Each Physical Therapy: ___ Session Segments, 15 Minutes Each 03345 01/09 ALLYSON BLACK A isted Exercises [place] 86146 01/09 ALLYSON BLACK A isted Exercises For ROM Ass[place] ROM 10631 01/06 ALLYSON BLACK Physical Therapy: ___ Se ion Segments, 15 Minutes Each Physical Therapy: ___ Session Segments, 15 Minutes Each 64692 01/06 ALLYSON BLACK Physical Therapy: ___ Se ion Segments, 15 Minutes Each Physical Therapy: ___ Session Segments, 15 Minutes Each 09321 01/04 ALLYSON BENITEZ isted Exercises For ROM [place] 59872 01/04 ALLYSON BENITEZ Phys Therapy Education Self Care Training - Per 15 Minutes Phys Therapy Education Self Care Training - Per 15 Minutes 53436 01/04 PATRICE HAWK WHO, wrist extension cock-up, prefabricated, includes fitting and adjustment 01/04 JEROME CHAHAL WHO, wrist extension cock-up, prefabricated, includes fitting and adjustment 12/30 JEROME CHAHAL Phys Therapy Education Self Care Training - Per 15 Minutes Phys Therapy Education Self Care Training - Per 15 Minutes 86334 12/30 ALLYSON TAVARES isted Exercises [place] 52470 12/30 ALLYSON TAVARES isted Exercises [place] 53714 12/28 ALLYSON BENITEZ Physical Medicine - Group Physical Therapy Se ion Physical Medicine - Group Physical Therapy Session 62356 12/28 PATRICE HAWK Modalities Cryotherapy Cold Packs Modalities Cryotherapy Cold Packs 40252 12/28 PATRICE HAWK Physical Therapy Service Re-Evaluation 12/23 WENCESLAO GREGG A isted Exercises For ROM Assisted Exercises For ROM 00616 12/21 ALLYSON BLACK Modalities Cryotherapy Cold Packs Modalities Cryotherapy Cold Packs 74038 12/21 ALLYSON BLACK A isted Exercises [place] 35862 12/19 BRANDI SHELLEY Modalities Cryotherapy Cold Packs Modalities Cryotherapy Cold Packs 65563 12/19 BRANDI SHELLEY Modalities Cryotherapy Cold Packs Modalities Cryotherapy Cold Packs 39682 12/16 ALLYSON BLACK A isted Exercises [place] 51860 12/16 ALLYSON BLACK Modalities Cryotherapy Cold Packs Modalities Cryotherapy Cold Packs 89090 12/15 ALLYSON BLACK A isted Exercises [place] 53234 12/15 ALLYSON BLACK Modalities Cryotherapy Cold Packs Modalities Cryotherapy Cold Packs 74805 12/14 WAYNE, ALLYSON C DoD A isted Exercises For ROM Assisted Exercises For ROM 75571 12/14 ALLYSON BLACK [facility] Modalities Cryotherapy Cold Packs Modalities Cryotherapy Cold Packs 11294 12/08 ALLYSON BLACK [facility] A isted Exercises For ROM Assisted [place] 75330 12/08 ALLYSON BLACK Psychotherapy With Medication Management 12/05 SANDRO ACOSTA [facility] Physical Therapy Service Re-Evaluation 12/02 WENCESLAO GREGG [facility] Modalities Cryotherapy Cold Packs Modalities Cryotherapy Cold Packs 46551 09/02 BLAINE GAONA [facility] Knee orthosis, elastic with joints, prefabricated, includes fitting and adjustment 09/01 JEROME CHAHAL [facility] Modalities Electrical Stimulation Modalities Electrical Stimulation 90065 09/01 BLAINE GAONA [facility] Physical Therapy: ___ Se ion Segments, 15 Minutes Each Physical Therapy: ___ Session Segments, 15 Minutes Each 10207 09/01 BLAINE GAONA [facility] Physical Medicine - Group Physical Therapy Se ion Physical Medicine - Group Physical Therapy Session 92337 09/01 BLAINE GAONA [facility] Modalities Cryotherapy Cold Packs Modalities Cryotherapy Cold Packs 83198 09/01 GAONABLAINE Macias [facility] Physical Therapy: ___ Se ion Segments, 15 Minutes Each Physical Therapy: ___ Session Segments, 15 Minutes Each 71654 08/31 BLAINE GAONA [facility] Modalities Cryotherapy Cold Packs Modalities Cryotherapy Cold Packs 17036 08/31 GAONABLAINE Macias [facility] Physical Medicine - Group Physical Therapy Se ion Physical Medicine - Group Physical Therapy Session 02991 08/31 BLAINE GAONA [facility] A isted Exercises For ROM Assisted [place]ercises [place] ROM 56385 08/30 MELANIE WU [facility] Phys Therapy Education Self Care Training - Per 15 Minutes Phys Therapy Education Self Care Training - Per 15 Minutes 37850 08/30 MELANIE WU Physical Therapy Service Evaluation 08/30 MELANIE WU [facility] Cardiovascular Stre Test Cardiovascular Stress Test 08090 08/30 JAMI MOORE [facility] Psychotherapy Indiv Approx 45 Min W/ Medical Evaluation & Management 08/25 SANDRO ACOSTA Aquatic Exercises Aquatic Exercises 10021 08/23 ALLYSON BLACK Physical Medicine - Group Physical Therapy Se ion Physical Medicine - Group Physical Therapy Session 42671 08/23 ALLYSON BLACK Psychotherapy Individual Approximately 45 Minutes 08/18 RONI LONG [facility] Spectacles Services Fitting Bifocal Except For Aphakia Spectacles Services Fitting Bifocal Except For Aphakia 82219 08/18 RADHA SAPP Physician Supervised Services Provision Of Educational Supplies Physician Supervised Services Provision Of Educational Supplies 54156 08/17 OTONIEL FELIPE Phys Therapy Education Self Care Training - Per 15 Minutes Phys Therapy Education Self Care Training - Per 15 Minutes 38145 08/17 OTONIEL FELIPE Psychiatric Therapy Preparation of Psychiatric Status Report Psychiatric Therapy Preparation of Psychiatric Status Report 75263 08/15 SANDRO ACOSTA Psychotherapy With Medication Management 08/15 SANDRO ACOSTA Psychiatric Diagnostic Evaluation Comprehensive Examination 08/15 SANDRO ACOSTA Physical Therapy Service Re-Evaluation 07/29 MELANIE WU Spectacles Services Fitting Monofocal Except For Aphakia Spectacles Services Fitting Monofocal Except For Aphakia 52694 07/29 JERRELL HAN [facility] Phys Therapy Education Self Care Training - Per 15 Minutes Phys Therapy Education Self Care Training - Per 15 Minutes 67774 07/29 MELANIE WU Patient given paperwork for [employer] to procure tens pads ~ he has barrowed his mother's home tens unit. [facility] Electrocardiogram Electrocardiogram 45290 07/27 ABBIE MASSEY [facility] Evoked Otoacoustic Hannah ions Diagnostic Evaluation 07/18 LEO MCQUEEN Acoustic Reflex Decay Test 07/18 LEO MCQUEEN Acoustic Reflex Testing 07/18 LEO MCQUEEN Tympanometry Tympanometry 98162 07/18 LEO MCQUEEN Comprehensive Audiometry Comprehensive Audiometry 54255 07/18 LEO MCQUEEN Phys Therapy Education Self Care Training - Per 15 Minutes Phys Therapy Education Self Care Training - Per 15 Minutes 81181 07/08 MELANIE WU Physical Therapy Service Re-Evaluation 07/08 MELANIE WU Psychotherapy Individual Approximately 45 Minutes 07/07 RONI LONG [place] Cane, includes canes of all materials, adjustable or fixed, with tip 07/01 YUE RYAN Physical Therapy Gait Training Physical Therapy Gait Training 05433 07/01 YUE RYAN Physical Medicine - Group Physical Therapy Se ion Physical Medicine - Group Physical Therapy Session 75583 07/01 YUE RYAN A isted Exercises For ROM Assisted [place] 54995 07/01 LEONARDO MURPHY Spectacles Services Fitting Monofocal Except For Aphakia Spectacles Services Fitting Monofocal Except For Aphakia 03455 06/30 ARANZA SELLERS manifest prn distance and near [place] Determination Of Refractive State Determination Of Refractive State 63660 06/30 ARANZA SELLERS Ophthalmological New Patient Start Comprehensive Care Ophthalmological New Patient Start Comprehensive Care 44228 06/30 ARANZA SELLERS A isted Exercises For ROM Assisted Exercises For ROM 97882 06/29 LEONARDO MURPHY Physical Medicine - Group Physical Therapy ion Physical Medicine - Group Physical Therapy Session 40777 06/29 LEONARDO MURPHY Physical Medicine - Group Physical Therapy Se ion Physical Medicine - Group Physical Therapy Session 96939 06/27 LEONARDO MURPHY A isted Exercises [place] 36743 06/27 LEONARDO MURPHY Physician Supervised Injection Intramuscular 06/24 ABBIE MASSEY Patient identification verified by having patient state full name and and checking with ID card. Provider's orders verified and present in the computer. Drug allergies verified. Patient states no allergies., Teaching done on injection and possible adverse reactions. Patient denies any questions or concerns. Administered 60 mg Toradol IM (Lot #[id number]; Exp.-) in right gluteal using aseptic technique. Patient tolerated procedure without incident. Patient instructed to remain in clinic for 20 minutes prior to leaving. [place] Physical Medicine - Group Physical Therapy Se ion Physical Medicine - Group Physical Therapy Session 85159 06/24 LEONARDO MURPHY A isted Exercises For ROM Assisted Exercises For ROM 00227 06/24 LEONARDO MURPHY Motor - Performing Exam - Extremity (not hand) 06/22 COREEN LARA Fluoroscopic Guidance/Localiz Of Needle For Spinal Injection 06/22 COREEN LARA Corticosteroid Injection Transforaminal Approach Sacral 06/22 COREEN LARA A isted Exercises For ROM Assisted [place]ercises [place] ROM 75672 06/22 LEONARDO MURPHY Physical Medicine - Group Physical Therapy Se ion Physical Medicine - Group Physical Therapy Session 48797 06/22 LEONARDO MURPHY A isted Exercises [place] 18306 06/20 LEONARDO MURPHY Physical Medicine - Group Physical Therapy Se ion Physical Medicine - Group Physical Therapy Session 86278 06/20 LEONARDO MURPHY Physical Medicine - Group Physical Therapy Se ion Physical Medicine - Group Physical Therapy Session 88159 06/17 LEONARDO MURPHY A isted Exercises For [place] 20299 06/17 LEONARDO MURPHY A isted Exercises For ROM [place] 40069 06/16 LEONARDO MURPHY Physical Medicine - Group Physical Therapy Se ion Physical Medicine - Group Physical Therapy Session 28619 06/16 LEONARDO MURPHY Cystometrogram 06/15 TASNEEM HINDS Measuremt Post-Voiding Resid Urine, Bladder Capacity Ultrasd Measuremt Post-Voiding Resid Urine, Bladder Capacity Ultrasd 16493 06/15 TASNEEM HINDS Physical Medicine - Group Physical Therapy Se ion Physical Medicine - Group Physical Therapy Session 50146 06/13 JEROME HODGES Phys Therapy Education Self Care Training - Per 15 Minutes Phys Therapy Education Self Care Training - Per 15 Minutes 33399 06/10 MELANIE WU Physical Medicine - Group Physical Therapy Se ion Physical Medicine - Group Physical Therapy Session 35380 06/10 MELANIE WU Physical Therapy Service Re-Evaluation 06/10 MELANIE WU Psychiatric Diagnostic Evaluation Comprehensive Examination 06/10 RONI LONG [facility] Motor - Performing Exam - Extremity (not hand) 06/08 COREEN LARA Fluoroscopic Guidance/Localiz Of Needle For Spinal Injection 06/08 COREEN LARA Corticosteroid Inj Interlaminar Lumbar L5 - S1 06/08 COREEN LARA Aquatic Exercises Aquatic Exercises 49843 06/03 YUE RYAN Physical Medicine - Group Physical Therapy Se ion Physical Medicine - Group Physical Therapy Session 56294 06/03 YUE RYAN [facility] Psychotherapy Group Interview Psychotherapy Group Interview 20722 06/02 RONI SHARPE [facility] Physician Supervised Injection Intramuscular 06/02 ABBIE MASSEY Pt identification verified by having (pt) state FULL NAME AND . Providers orders verified and present in computer. Pt teaching done on procedure and adverse reactions that may occur. Pt denies any questions or concerns at this time. Administered Toradol 60mg IM in R gluteal using aseptic technique and ( 23 gauge needle) . Pt tolerated procedure without incident. Bandage applied. Pt instructed to remain in clinic 20 min prior to leaving. [facility] Injection, ketorolac tromethamine, per 15 mg 06/02 ABBIE MASSEY Ketorolac Tromethamine Injection 60mg/ 2ml IM R gluteal Man: Bass Manager LOT#[id number] EXP 11/16 [facility] Aquatic Exercises Aquatic Exercises 83408 06/01 YUE RYAN Physical Medicine - Group Physical Therapy ion Physical Medicine - Group Physical Therapy Session 50566 06/01 YUE RYAN Physical Medicine - Group Physical Therapy ion Physical Medicine - Group Physical Therapy Session 01716 05/26 YUE RYAN Injection, ketorolac tromethamine, per 15 mg 05/25 ABBIE MASSEY 0838hrs: Patient brought to treatment room for IM injection. Patient verified name and also no known allergies to latex by patient stating information. Providers order verified and present in computer. Patient instructed about treatment medication and injection with patient stating has had this medication injection before and states has no concerns. Medication visually inpected without any abnormalities seen exp. date good. Patient given 60mg. Toradol IM via left outer upper gluteal site with 22gauge 1 and 1/2 inch needle without incident . Patient instructed to wait in clinic 20 minutes after injection to be monitored with patient stating intent to follow instructions. [facility] Aquatic Exercises Aquatic Exercises 65596 05/23 YUE RYAN Physical Medicine - Group Physical Therapy Se ion Physical Medicine - Group Physical Therapy Session 14358 05/23 YUE RYAN Physical Medicine - Group Physical Therapy Se ion Physical Medicine - Group Physical Therapy Session 11092 05/20 YUE RYAN Aquatic Exercises Aquatic Exercises 90217 05/18 YUE RYAN Physical Medicine - Group Physical Therapy Se ion Physical Medicine - Group Physical Therapy Session 69244 05/18 YUE RYAN Aquatic Exercises Aquatic Exercises 62421 05/16 YUE RYAN Physical Medicine - Group Physical Therapy Se ion Physical Medicine - Group Physical Therapy Session 06002 05/16 YUE RYAN Physical Medicine - Group Physical Therapy Se ion Physical Medicine - Group Physical Therapy Session 17641 05/13 YUE RYAN Aquatic Exercises Aquatic Exercises 41113 05/12 YUE RYAN Physical Medicine - Group Physical Therapy Se ion Physical Medicine - Group Physical Therapy Session 63154 05/12 YUE RYAN Injection, ketorolac tromethamine, per 15 mg 05/12 ABBIE MASSEY Pt identification verified by having (pt) state FULL NAME AND . Providers orders verified and present in computer. Pt teaching done on procedure and adverse reactions that may occur. Pt denies any questions or concerns at this time. Administered Toradol 60mg IM in R gluteal using aseptic technique and ( 23 gauge 1in needle) . Pt tolerated procedure without incident. Bandage applied. [facility] Physician Supervised Injection Intramuscular 05/12 ABBIE MASSEY Toradol injection per physician order. Ketorolac Tromethamine Injection MCC 60mg/2ml MAN: Bass Manager LOT# [id number] EXP: JAN 15 [facility] Psychiatric Diagnostic Evaluation Comprehensive Examination 05/12 RONI SHARPE Phys Therapy Education Self Care Training - Per 15 Minutes Phys Therapy Education Self Care Training - Per 15 Minutes 07044 05/10 MELANIE WU [facility] A isted Exercises [place] 49087 05/10 MELANIE WU [facility] Physical Therapy Service Evaluation 05/10 MELANIE WU [facility] Patient education, not otherwise cla ified, non-physician provider, individual, per se ion 05/06 GABY AWAN [facility] Occupational Therapy Evaluation 05/06 GABY AWAN [facility] Physician Supervised Injection Intramuscular 05/06 ABBIE MASSEY Pt identification verified by having (pt) state FULL NAME AND . Providers orders verified and present in computer. Pt teaching done on procedure and adverse reactions that may occur. Pt denies any questions or concerns at this time. Administered Toradol 60 mg IM in R gluteal using aseptic technique and ( 23 gauge needle) . Pt tolerated procedure without incident. Bandage applied. Pt instructed to remain in clinic 20 min prior to leaving. DoD RANGE OF MOTION MEASUREMENTS AND REPORT (SEPARATE PROCEDURE); EACH EXTREMITY (EXCLUDING HAND) OR EACH TRUNK SECTION (SPINE) 10/16 DoD PURE TONE AUDIOMETRY (THRESHOLD); AIR AND BONE 06/25 DoD SUPPLY OF SPECTACLES, EXCEPT PROSTHESIS FOR APHAKIA AND LOW VISION AIDS 06/17 DoD PHYS/OTH QUALIFIED HEALTH CRYSTAL GAZER QUALIFIED,EDUCATION,TR AIN,LICENSURE/REGULATI ON (WHEN APPLICABLE) EDUC SER RENDERED TO PATS IN A GRP SETTING (EG,,OBESITY,O R DIABETIC INSTRUCT) 06/16 DoD LSO, CORSET FRONT 04/21 DoD PHYSICAL THERAPY RE-EVALUATION 04/19 DoD INDIVIDUAL PSYCHOTHERAPY, INSIGHT ORIENTED, BEHAVIOR MODIFYING AND/OR SUPPORTIVE, IN AN OFFICE OR OUTPATIENT FACILITY, APPROXIMATELY 20 TO 30 MINUTES [id number] W THE PATIENT; W MED EVAL & MGT SER 04/17 DoD FITTING OF SPECTACLES, EXCEPT FOR APHAKIA; MONOFOCAL 04/17 DoD FITTING OF SPECTACLES, EXCEPT FOR APHAKIA; MONOFOCAL 04/14 DoD COMPUTERIZED CORNEAL TOPOGRAPHY, UNILATERAL OR BILATERAL, WITH INTERPRETATION AND REPORT 03/27 DoD INDIVIDUAL PSYCHOTHERAPY, INSIGHT ORIENTED, BEHAVIOR MODIFYING AND/OR SUPPORTIVE, IN AN OFFICE OR OUTPATIENT FACILITY, APPROXIMATELY 20 TO 30 MINUTES [id number] W THE PATIENT; W MED EVAL & MGT SER 03/24 DoD PHYSICAL THERAPY RE-EVALUATION 03/21 DoD THERAPEUTIC PROCEDURE, 1 OR MORE AREAS, EACH 15 MINUTES; THERAPEUTIC EXERCISES TO DEVELOP STRENGTH AND ENDURANCE, RANGE OF MOTION AND FLEXIBILITY 03/21 [facility] THERAPEUTIC PROCEDURE, 1 OR MORE AREAS, EACH 15 MINUTES; THERAPEUTIC EXERCISES TO DEVELOP STRENGTH AND ENDURANCE, RANGE OF MOTION AND FLEXIBILITY 03/17 [facility] THERAPEUTIC PROCEDURE, 1 OR MORE AREAS, EACH 15 MINUTES; THERAPEUTIC EXERCISES TO DEVELOP STRENGTH AND ENDURANCE, RANGE OF MOTION AND FLEXIBILITY 03/16 [facility] INDIVIDUAL PSYCHOTHERAPY, INSIGHT ORIENTED, BEHAVIOR MODIFYING AND/OR SUPPORTIVE, IN AN OFFICE OR OUTPATIENT FACILITY, APPROXIMATELY 20 TO 30 MINUTES [id number] W THE PATIENT; W MED EVAL & MGT SER 03/16 [facility] ARTHROCENTESIS, ASPIRATION AND/OR INJECTION, MAJOR JOINT OR BURSA (EG, SHOULDER, HIP, KNEE, SUBACROMIAL BURSA); WITHOUT ULTRASOUND GUIDANCE 03/16 [facility] THERAPEUTIC PROCEDURE, 1 OR MORE AREAS, EACH 15 MINUTES; THERAPEUTIC EXERCISES TO DEVELOP STRENGTH AND ENDURANCE, RANGE OF MOTION AND FLEXIBILITY 03/14 [facility] THERAPEUTIC PROCEDURE, 1 OR MORE AREAS, EACH 15 MINUTES; THERAPEUTIC EXERCISES TO DEVELOP STRENGTH AND ENDURANCE, RANGE OF MOTION AND FLEXIBILITY 03/10 [facility] PHYSICAL THERAPY RE-EVALUATION 03/08 [facility] INDIVIDUAL PSYCHOTHERAPY, INSIGHT ORIENTED, BEHAVIOR MODIFYING AND/OR SUPPORTIVE, IN AN OFFICE OR OUTPATIENT FACILITY, APPROXIMATELY 20 TO 30 MINUTES [id number] W THE PATIENT; W MED EVAL & MGT SER 03/06 [facility] THERAPEUTIC PROCEDURE(S), GROUP (2 OR MORE INDIVIDUALS) 03/01 [facility] THERAPEUTIC PROCEDURE(S), GROUP (2 OR MORE INDIVIDUALS) 02/28 [facility] THERAPEUTIC PROCEDURE, 1 OR MORE AREAS, EACH 15 MINUTES; THERAPEUTIC EXERCISES TO DEVELOP STRENGTH AND ENDURANCE, RANGE OF MOTION AND FLEXIBILITY 02/24 [facility]D THERAPEUTIC PROCEDURE, 1 OR MORE AREAS, EACH 15 MINUTES; THERAPEUTIC EXERCISES TO DEVELOP STRENGTH AND ENDURANCE, RANGE OF MOTION AND FLEXIBILITY 02/23 [facility] PHARMACOLOGIC MANAGEMENT, INCLUDING PRESCRIPTION, USE, AND REVIEW OF MEDICATION WITH NO MORE THAN MINIMAL MEDICAL PSYCHOTHERAPY 02/23 [facility] POLYSOMNOGRAPHY;AGE 7 YEARS/OLDER,SLEEP STAGING W 4/MORE ADDITIONAL PARAMETERS OF SLEEP,W INITIATION OF CONTINUOUS POSITIVE AIRWAY PRESSURE THERAPY/BILEVEL VENTILATION,ATTENDED BY A TECHNOLOGIST 02/23 [facility] THERAPEUTIC PROCEDURE, 1 OR MORE AREAS, EACH 15 MINUTES; THERAPEUTIC EXERCISES TO DEVELOP STRENGTH AND ENDURANCE, RANGE OF MOTION AND FLEXIBILITY 02/21 [facility] ORTHOTIC(S) MANAGEMENT AND TRAINING (INCLUDING ASSESSMENT AND FITTING WHEN NOT OTHERWISE REPORTED),UPPER EXTREMITY(IES),LOWER EXTREMITY(IES) AND/OR TRUNK,INITIAL ORTHOTIC(S) ENCOUNTER,EACH 15 MINUTES 02/17 [facility] PHYSICAL THERAPY RE-EVALUATION 02/17 [facility] APPLICATION OF A MODALITY TO 1 OR MORE AREAS; ULTRASOUND, EACH 15 MINUTES 02/15 [facility] APPLICATION OF A MODALITY TO 1 OR MORE AREAS; ULTRASOUND, EACH 15 MINUTES 02/13 [facility] THERAPEUTIC PROCEDURE, 1 OR MORE AREAS, EACH 15 MINUTES; THERAPEUTIC EXERCISES TO DEVELOP STRENGTH AND ENDURANCE, RANGE OF MOTION AND FLEXIBILITY 02/10 [facility] POLYSOMNOGRAPHY; AGE 7 YEARS OR OLDER, SLEEP STAGING WITH 4 OR MORE ADDITIONAL PARAMETERS OF SLEEP, ATTENDED BY A TECHNOLOGIST 02/09 [facility] APPLICATION OF A MODALITY TO 1 OR MORE AREAS; ULTRASOUND, EACH 15 MINUTES 02/08 [facility] INFLUENZA VIRUS VACCINE, TRIVALENT, LIVE (LAIV3), FOR INTRANASAL USE 02/06 [facility] KNEE ORTHOSIS, ELASTIC WITH JOINTS, PREFABRICATED ITEM THAT HAS BEEN TRIMMED, BENT, MOLDED, ASSEMBLED, OR OTHERWISE CUSTOMIZED TO FIT A SPECIFIC PATIENT BY AN INDIVIDUAL WITH EXPERTISE 02/06 [facility] THERAPEUTIC PROCEDURE(S), GROUP (2 OR MORE INDIVIDUALS) 02/06 [facility] THERAPEUTIC PROCEDURE(S), GROUP (2 OR MORE INDIVIDUALS) 02/03 [facility] PHYSICAL THERAPY RE-EVALUATION 02/01 [facility] SELF-CARE/HOME MANAGMENT TRAIN (EG,ACT OF DAILY LIVING (ADL) &COMPENSAT TRAIN,MEAL PREPARATION,SAFETY PROCS,AND INSTRUCT IN USE OF ASST TECHNOLOGY DEV/ADPT EQUIP) DIR ONE-ON-ONE CONT,EA 15 MINUTES 02/01 [facility] PHARMACOLOGIC MANAGEMENT, INCLUDING PRESCRIPTION, USE, AND REVIEW OF MEDICATION WITH NO MORE THAN MINIMAL MEDICAL PSYCHOTHERAPY 01/31 [facility] THERAPEUTIC PROCEDURE(S), GROUP (2 OR MORE INDIVIDUALS) 01/31 [facility] THERAPEUTIC PROCEDURE(S), GROUP (2 OR MORE INDIVIDUALS) 01/30 [facility] THERAPEUTIC PROCEDURE(S), GROUP (2 OR MORE INDIVIDUALS) 01/27 [facility] MUSCLE TESTING, MANUAL (SEPARATE PROCEDURE); TOTAL EVALUATION OF BODY, EXCLUDING HANDS 01/26 [facility] THERAPEUTIC PROCEDURE(S), GROUP (2 OR MORE INDIVIDUALS) 01/26 [facility]D THERAPEUTIC PROCEDURE, 1 OR MORE AREAS, EACH 15 MINUTES; THERAPEUTIC EXERCISES TO DEVELOP STRENGTH AND ENDURANCE, RANGE OF MOTION AND FLEXIBILITY 01/24 [facility] PHYSICAL THERAPY RE-EVALUATION 01/13 [facility]D THERAPEUTIC PROCEDURE, 1 OR MORE AREAS, EACH 15 MINUTES; THERAPEUTIC EXERCISES TO DEVELOP STRENGTH AND ENDURANCE, RANGE OF MOTION AND FLEXIBILITY 01/11 [facility] THERAPEUTIC PROCEDURE, 1 OR MORE AREAS, EACH 15 MINUTES; THERAPEUTIC EXERCISES TO DEVELOP STRENGTH AND ENDURANCE, RANGE OF MOTION AND FLEXIBILITY 01/09 [facility] THERAPEUTIC PROCEDURE, 1 OR MORE AREAS, EACH 15 MINUTES; THERAPEUTIC EXERCISES TO DEVELOP STRENGTH AND ENDURANCE, RANGE OF MOTION AND FLEXIBILITY 01/06 DoD WRIST-HAND ORTHOSIS (WHO), WRIST EXTENSION COCK-UP, PREFABRICATED, INCLUDES FITTING AND ADJUSTMENT 01/04 [facility]D SELF-CARE/HOME MANAGMENT TRAIN (EG,ACT OF DAILY LIVING (ADL) &COMPENSAT TRAIN,MEAL PREPARATION,SAFETY PROCS,AND INSTRUCT IN USE OF ASST TECHNOLOGY DEV/ADPT EQUIP) DIR ONE-ON-ONE CONT,EA 15 MINUTES 01/04 [facility] THERAPEUTIC PROCEDURE, 1 OR MORE AREAS, EACH 15 MINUTES; THERAPEUTIC EXERCISES TO DEVELOP STRENGTH AND ENDURANCE, RANGE OF MOTION AND FLEXIBILITY 01/02 [facility] WRIST-HAND ORTHOSIS (WHO), WRIST EXTENSION COCK-UP, PREFABRICATED, INCLUDES FITTING AND ADJUSTMENT 12/30 [facility] SELF-CARE/HOME MANAGMENT TRAIN (EG,ACT OF DAILY LIVING (ADL) &COMPENSAT TRAIN,MEAL PREPARATION,SAFETY PROCS,AND INSTRUCT IN USE OF ASST TECHNOLOGY DEV/ADPT EQUIP) DIR ONE-ON-ONE CONT,EA 15 MINUTES 12/30 [facility] THERAPEUTIC PROCEDURE(S), GROUP (2 OR MORE INDIVIDUALS) 12/28 [facility] THERAPEUTIC PROCEDURE, 1 OR MORE AREAS, EACH 15 MINUTES; THERAPEUTIC EXERCISES TO DEVELOP STRENGTH AND ENDURANCE, RANGE OF MOTION AND FLEXIBILITY 12/26 [facility] PHYSICAL THERAPY RE-EVALUATION 12/23 DoD APPLICATION OF A MODALITY TO 1 OR MORE AREAS; HOT OR COLD PACKS 12/21 DoD APPLICATION OF A MODALITY TO 1 OR MORE AREAS; HOT OR COLD PACKS 12/19 DoD APPLICATION OF A MODALITY TO 1 OR MORE AREAS; HOT OR COLD PACKS 12/16 DoD APPLICATION OF A MODALITY TO 1 OR MORE AREAS; HOT OR COLD PACKS 12/15 DoD APPLICATION OF A MODALITY TO 1 OR MORE AREAS; HOT OR COLD PACKS 12/14 DoD APPLICATION OF A MODALITY TO 1 OR MORE AREAS; HOT OR COLD PACKS 12/08 [facility]D PHARMACOLOGIC MANAGEMENT, INCLUDING PRESCRIPTION, USE, AND REVIEW OF MEDICATION WITH NO MORE THAN MINIMAL MEDICAL PSYCHOTHERAPY 12/05 [facility] PHYSICAL THERAPY RE-EVALUATION 12/02 DoD THERAPEUTIC PROCEDURE(S), GROUP (2 OR MORE INDIVIDUALS) 11/30 DoD MUSCLE TESTING, MANUAL (SEPARATE PROCEDURE); TOTAL EVALUATION OF BODY, EXCLUDING HANDS 11/29 [facility] THERAPEUTIC PROCEDURE(S), GROUP (2 OR MORE INDIVIDUALS) 11/28 [facility] THERAPEUTIC PROCEDURE(S), GROUP (2 OR MORE INDIVIDUALS) 11/25 DoD APPLICATION OF A MODALITY TO 1 OR MORE AREAS; HOT OR COLD PACKS 11/23 DoD APPLICATION OF A MODALITY TO 1 OR MORE AREAS; HOT OR COLD PACKS 11/22 DoD APPLICATION OF A MODALITY TO 1 OR MORE AREAS; HOT OR COLD PACKS 11/17 DoD APPLICATION OF A MODALITY TO 1 OR MORE AREAS; HOT OR COLD PACKS 11/16 DoD PSYCHIATRIC DIAGNOSTIC INTERVIEW EXAMINATION 11/16 DoD HEALTH AND BEHAVIOR INTERVENTION, EACH 15 MINUTES, [id number]; INDIVIDUAL 11/15 DoD POSTOPERATIVE FOLLOW-UP VISIT, NORMALLY INCLUDED IN THE SURGICAL PACKAGE, INDICATE THAT EVALUATION & MANAGEMENT SERVICE WAS PERFORMED DURING A POSTOPERATIVE PERIOD REASON RELATED ORIGINAL PROCEDURE 11/15 DoD HEALTH AND BEHAVIOR INTERVENTION, EACH 15 MINUTES, [id number]; INDIVIDUAL 11/14 DoD POSTOPERATIVE FOLLOW-UP VISIT, NORMALLY INCLUDED IN THE SURGICAL PACKAGE, INDICATE THAT EVALUATION & MANAGEMENT SERVICE WAS PERFORMED DURING A POSTOPERATIVE PERIOD REASON RELATED ORIGINAL PROCEDURE 11/14 DoD POSTOPERATIVE FOLLOW-UP VISIT, NORMALLY INCLUDED IN THE SURGICAL PACKAGE, INDICATE THAT EVALUATION & MANAGEMENT SERVICE WAS PERFORMED DURING A POSTOPERATIVE PERIOD REASON RELATED ORIGINAL PROCEDURE 11/13 [facility]D THERAPEUTIC PROCEDURE, 1 OR MORE AREAS, EACH 15 MINUTES; THERAPEUTIC EXERCISES TO DEVELOP STRENGTH AND ENDURANCE, RANGE OF MOTION AND FLEXIBILITY 11/11 Do[facility] HEALTH AND BEHAVIOR INTERVENTION, EACH 15 MINUTES, [id number]; INDIVIDUAL 11/09 DoD POSTOPERATIVE FOLLOW-UP VISIT, NORMALLY INCLUDED IN THE SURGICAL PACKAGE, INDICATE THAT EVALUATION & MANAGEMENT SERVICE WAS PERFORMED DURING A POSTOPERATIVE PERIOD REASON RELATED ORIGINAL PROCEDURE 11/09 [facility] SELF-CARE/HOME MANAGMENT TRAIN (EG,ACT OF DAILY LIVING (ADL) &COMPENSAT TRAIN,MEAL PREPARATION,SAFETY PROCS,AND INSTRUCT IN USE OF ASST TECHNOLOGY DEV/ADPT EQUIP) DIR ONE-ON-ONE CONT,EA 15 MINUTES 11/02 [facility] PHARMACOLOGIC MANAGEMENT, INCLUDING PRESCRIPTION, USE, AND REVIEW OF MEDICATION WITH NO MORE THAN MINIMAL MEDICAL PSYCHOTHERAPY 11/01 [facility] THERAPEUTIC PROCEDURE(S), GROUP (2 OR MORE INDIVIDUALS) 10/31 [facility] THERAPEUTIC PROCEDURE(S), GROUP (2 OR MORE INDIVIDUALS) 10/28 [facility] THERAPEUTIC PROCEDURE, 1 OR MORE AREAS, EACH 15 MINUTES; THERAPEUTIC EXERCISES TO DEVELOP STRENGTH AND ENDURANCE, RANGE OF MOTION AND FLEXIBILITY 10/18 [facility] INDIVIDUAL PSYCHOTHERAPY, INSIGHT ORIENTED, BEHAVIOR MODIFYING AND/OR SUPPORTIVE, IN AN OFFICE OR OUTPATIENT FACILITY, APPROXIMATELY 45 TO 50 MINUTES [id number] WITH THE PATIENT 10/06 [facility] APPLICATION OF A MODALITY TO 1 OR MORE AREAS; HOT OR COLD PACKS 10/06 [facility] PREPARATION OF REPORT OF PATIENT'S PSYCHIATRIC STATUS, HISTORY, TREATMENT, OR PROGRESS (OTHER THAN FOR LEGAL OR CONSULTATIVE PURPOSES) FOR OTHER INDIVIDUALS, AGENCIES, OR INSURANCE CARRIERS 10/05 [facility] APPLICATION OF A MODALITY TO 1 OR MORE AREAS; HOT OR COLD PACKS 10/05 [facility] APPLICATION OF A MODALITY TO 1 OR MORE AREAS; HOT OR COLD PACKS 10/04 [facility] PHARMACOLOGIC MANAGEMENT, INCLUDING PRESCRIPTION, USE, AND REVIEW OF MEDICATION WITH NO MORE THAN MINIMAL MEDICAL PSYCHOTHERAPY 09/29 DoD THERAPEUTIC PROCEDURE, 1 OR MORE AREAS, EACH 15 MINUTES; THERAPEUTIC EXERCISES TO DEVELOP STRENGTH AND ENDURANCE, RANGE OF MOTION AND FLEXIBILITY 09/29 [facility]D THERAPEUTIC PROCEDURE, 1 OR MORE AREAS, EACH 15 MINUTES; THERAPEUTIC EXERCISES TO DEVELOP STRENGTH AND ENDURANCE, RANGE OF MOTION AND FLEXIBILITY 09/27 [facility] SELF-CARE/HOME MANAGMENT TRAIN (EG,ACT OF DAILY LIVING (ADL) &COMPENSAT TRAIN,MEAL PREPARATION,SAFETY PROCS,AND INSTRUCT IN USE OF ASST TECHNOLOGY DEV/ADPT EQUIP) DIR ONE-ON-ONE CONT,EA 15 MINUTES 09/21 [facility] PHYSICAL THERAPY RE-EVALUATION 09/19 [facility] KNEE ORTHOSIS, ELASTIC WITH JOINTS, PREFABRICATED ITEM THAT HAS BEEN TRIMMED, BENT, MOLDED, ASSEMBLED, OR OTHERWISE CUSTOMIZED TO FIT A SPECIFIC PATIENT BY AN INDIVIDUAL WITH EXPERTISE 09/16 [facility] APPLICATION OF A MODALITY TO 1 OR MORE AREAS; ELECTRICAL STIMULATION (MANUAL), EACH 15 MINUTES 09/14 [facility] APPLICATION OF A MODALITY TO 1 OR MORE AREAS; ELECTRICAL STIMULATION (MANUAL), EACH 15 MINUTES 09/13 [facility] PHARMACOLOGIC MANAGEMENT, INCLUDING PRESCRIPTION, USE, AND REVIEW OF MEDICATION WITH NO MORE THAN MINIMAL MEDICAL PSYCHOTHERAPY 09/13 [facility] CARDIOVASCULAR STRESS TEST USING MAXIMAL OR SUBMAXIMAL TREADMILL OR BICYCLE EXERCISE,CONTINUOUS ELECTROCARDIOGRAPHIC MONITORING,AND/OR PHARMACOLOGICAL STRESS;W SUPERVISION,INTERPRETA TION AND REPORT 09/12 [facility] MUSCLE TESTING, MANUAL (SEPARATE PROCEDURE) WITH REPORT; EXTREMITY (EXCLUDING HAND) OR TRUNK 09/09 [facility] APPLICATION OF A MODALITY TO 1 OR MORE AREAS; ELECTRICAL STIMULATION (MANUAL), EACH 15 MINUTES 09/08 DoD APPLICATION OF A MODALITY TO 1 OR MORE AREAS; ELECTRICAL STIMULATION (MANUAL), EACH 15 MINUTES 09/02 [facility] KNEE ORTHOSIS, ELASTIC WITH JOINTS, PREFABRICATED ITEM THAT HAS BEEN TRIMMED, BENT, MOLDED, ASSEMBLED, OR OTHERWISE CUSTOMIZED TO FIT A SPECIFIC PATIENT BY AN INDIVIDUAL WITH EXPERTISE 09/01 [facility] APPLICATION OF A MODALITY TO 1 OR MORE AREAS; ELECTRICAL STIMULATION (MANUAL), EACH 15 MINUTES 09/01 [facility] THERAPEUTIC PROCEDURE, 1 OR MORE AREAS, EACH 15 MINUTES; THERAPEUTIC EXERCISES TO DEVELOP STRENGTH AND ENDURANCE, RANGE OF MOTION AND FLEXIBILITY 08/31 [facility]D THERAPEUTIC PROCEDURE, 1 OR MORE AREAS, EACH 15 MINUTES; THERAPEUTIC EXERCISES TO DEVELOP STRENGTH AND ENDURANCE, RANGE OF MOTION AND FLEXIBILITY 08/29 [facility] UNLISTED AMBULANCE SERVICE 08/26 [facility] INDIVIDUAL PSYCHOTHERAPY, INSIGHT ORIENTED, BEHAVIOR MODIFYING AND/OR SUPPORTIVE, IN AN OFFICE OR OUTPATIENT FACILITY, APPROXIMATELY 45 TO 50 MINUTES [id number] W THE PATIENT; W MED EVAL & MGT SER 08/25 [facility] THERAPEUTIC PROCEDURE, 1 OR MORE AREAS, EACH 15 MINUTES; AQUATIC THERAPY WITH THERAPEUTIC EXERCISES 08/22 [facility] INDIVIDUAL PSYCHOTHERAPY, INSIGHT ORIENTED, BEHAVIOR MODIFYING AND/OR SUPPORTIVE, IN AN OFFICE OR OUTPATIENT FACILITY, APPROXIMATELY 45 TO 50 MINUTES [id number] WITH THE PATIENT 08/18 [facility] EDUCATIONAL SUPPLIES, SUCH BOOKS, TAPES, AND PAMPHLETS, FOR THE PATIENT'S EDUCATION AT COST TO PHYSICIAN OR OTHER QUALIFIED HEALTH CRYSTAL GAZER 08/17 [facility] PREPARATION OF REPORT OF PATIENT'S PSYCHIATRIC STATUS, HISTORY, TREATMENT, OR PROGRESS (OTHER THAN FOR LEGAL OR CONSULTATIVE PURPOSES) FOR OTHER INDIVIDUALS, AGENCIES, OR INSURANCE CARRIERS 08/15 DoD FITTING OF SPECTACLES, EXCEPT FOR APHAKIA; BIFOCAL 08/11 DoD FITTING OF SPECTACLES, EXCEPT FOR APHAKIA; BIFOCAL 08/09 DoD ELECTROCARDIOGRAM, ROUTINE ECG WITH AT LEAST 12 LEADS; WITH INTERPRETATION AND REPORT 07/31 [facility] PHYSICAL THERAPY RE-EVALUATION 07/29 [facility] ELECTROCARDIOGRAM, ROUTINE ECG WITH AT LEAST 12 LEADS; WITH INTERPRETATION AND REPORT 07/27 DoD FITTING OF SPECTACLES, EXCEPT FOR APHAKIA; MONOFOCAL 07/21 [facility] INDIVIDUAL PSYCHOTHERAPY, INSIGHT ORIENTED, BEHAVIOR MODIFYING AND/OR SUPPORTIVE, IN AN OFFICE OR OUTPATIENT FACILITY, APPROXIMATELY 45 TO 50 MINUTES [id number] WITH THE PATIENT 07/07 [facility] SELF-CARE/HOME MANAGMENT TRAIN (EG,ACT OF DAILY LIVING (ADL) &COMPENSAT TRAIN,MEAL PREPARATION,SAFETY PROCS,AND INSTRUCT IN USE OF ASST TECHNOLOGY DEV/ADPT EQUIP) DIR ONE-ON-ONE CONT,EA 15 MINUTES 07/07 [facility] ACOUSTIC REFLEX TESTING; DECAY 07/04 DoD CANE, INCLUDES CANES OF ALL MATERIALS, ADJUSTABLE OR FIXED, WITH TIP 07/01 [facility] THERAPEUTIC PROCEDURE(S), GROUP (2 OR MORE INDIVIDUALS) 07/01 [facility] FITTING OF SPECTACLES, EXCEPT FOR APHAKIA; MONOFOCAL 06/30 DoD THERAPEUTIC PROCEDURE(S), GROUP (2 OR MORE INDIVIDUALS) 06/29 [facility] THERAPEUTIC PROCEDURE, 1 OR MORE AREAS, EACH 15 MINUTES; THERAPEUTIC EXERCISES TO DEVELOP STRENGTH AND ENDURANCE, RANGE OF MOTION AND FLEXIBILITY 06/27 [facility] THERAPEUTIC, PROPHYLACTIC OR DIAGNOSTIC INJECTION (SPECIFY SUBSTANCE OR DRUG); SUBCUTANEOUS OR INTRAMUSCULAR 06/24 [facility] THERAPEUTIC PROCEDURE, 1 OR MORE AREAS, EACH 15 MINUTES; THERAPEUTIC EXERCISES TO DEVELOP STRENGTH AND ENDURANCE, RANGE OF MOTION AND FLEXIBILITY 06/24 [facility] MUSCLE TESTING, MANUAL (SEPARATE PROCEDURE) WITH REPORT; EXTREMITY (EXCLUDING HAND) OR TRUNK 06/22 [facility] THERAPEUTIC PROCEDURE, 1 OR MORE AREAS, EACH 15 MINUTES; THERAPEUTIC EXERCISES TO DEVELOP STRENGTH AND ENDURANCE, RANGE OF MOTION AND FLEXIBILITY 06/22 [facility] THERAPEUTIC PROCEDURE, 1 OR MORE AREAS, EACH 15 MINUTES; THERAPEUTIC EXERCISES TO DEVELOP STRENGTH AND ENDURANCE, RANGE OF MOTION AND FLEXIBILITY 06/20 [facility] THERAPEUTIC PROCEDURE, 1 OR MORE AREAS, EACH 15 MINUTES; THERAPEUTIC EXERCISES TO DEVELOP STRENGTH AND ENDURANCE, RANGE OF MOTION AND FLEXIBILITY 06/17 [facility] THERAPEUTIC PROCEDURE, 1 OR MORE AREAS, EACH 15 MINUTES; THERAPEUTIC EXERCISES TO DEVELOP STRENGTH AND ENDURANCE, RANGE OF MOTION AND FLEXIBILITY 06/16 [facility] VOIDING PRESSURE STUDIES (HYDROPULPER OPERATOR); BLADDER VOIDING PRESSURE, ANY TECHNIQUE 06/15 [facility] THERAPEUTIC PROCEDURE(S), GROUP (2 OR MORE INDIVIDUALS) 06/13 [facility] PSYCHIATRIC DIAGNOSTIC INTERVIEW EXAMINATION 06/09 [facility] SELF-CARE/HOME MANAGMENT TRAIN (EG,ACT OF DAILY LIVING (ADL) &COMPENSAT TRAIN,MEAL PREPARATION,SAFETY PROCS,AND INSTRUCT IN USE OF ASST TECHNOLOGY DEV/ADPT EQUIP) DIR ONE-ON-ONE CONT,EA 15 MINUTES 06/09 [facility] MUSCLE TESTING, MANUAL (SEPARATE PROCEDURE) WITH REPORT; EXTREMITY (EXCLUDING HAND) OR TRUNK 06/08 [facility] THERAPEUTIC PROCEDURE, 1 OR MORE AREAS, EACH 15 MINUTES; AQUATIC THERAPY WITH THERAPEUTIC EXERCISES 06/03 [facility] GROUP PSYCHOTHERAPY (OTHER THAN OF A MULTIPLE-FAMILY GROUP) 06/02 DoD INJECTION, KETOROLAC TROMETHAMINE, PER 15 MG 06/02 [facility] THERAPEUTIC PROCEDURE, 1 OR MORE AREAS, EACH 15 MINUTES; AQUATIC THERAPY WITH THERAPEUTIC EXERCISES 06/01 [facility] THERAPEUTIC PROCEDURE(S), GROUP (2 OR MORE INDIVIDUALS) 05/25 DoD INJECTION, KETOROLAC TROMETHAMINE, PER 15 MG 05/25 [facility] THERAPEUTIC PROCEDURE, 1 OR MORE AREAS, EACH 15 MINUTES; AQUATIC THERAPY WITH THERAPEUTIC EXERCISES 05/23 [facility] THERAPEUTIC PROCEDURE(S), GROUP (2 OR MORE INDIVIDUALS) 05/20 [facility] THERAPEUTIC PROCEDURE, 1 OR MORE AREAS, EACH 15 MINUTES; AQUATIC THERAPY WITH THERAPEUTIC EXERCISES 05/18 [facility] THERAPEUTIC PROCEDURE, 1 OR MORE AREAS, EACH 15 MINUTES; AQUATIC THERAPY WITH THERAPEUTIC EXERCISES 05/16 [facility] THERAPEUTIC PROCEDURE(S), GROUP (2 OR MORE INDIVIDUALS) 05/13 [facility] INJECTION, KETOROLAC TROMETHAMINE, PER 15 MG 05/12 [facility] PSYCHIATRIC DIAGNOSTIC INTERVIEW EXAMINATION 05/12 [facility] THERAPEUTIC PROCEDURE, 1 OR MORE AREAS, EACH 15 MINUTES; AQUATIC THERAPY WITH THERAPEUTIC EXERCISES 05/11 [facility] SELF-CARE/HOME MANAGMENT TRAIN (EG,ACT OF DAILY LIVING (ADL) &COMPENSAT TRAIN,MEAL PREPARATION,SAFETY PROCS,AND INSTRUCT IN USE OF ASST TECHNOLOGY DEV/ADPT EQUIP) DIR ONE-ON-ONE CONT,EA 15 MINUTES 05/10 [facility] PATIENT EDUCATION, NOT OTHERWISE CLASSIFIED, NON-PHYSICIAN PROVIDER, INDIVIDUAL, PER SESSION 05/06 [facility] THERAPEUTIC, PROPHYLACTIC OR DIAGNOSTIC INJECTION (SPECIFY SUBSTANCE OR DRUG); SUBCUTANEOUS OR INTRAMUSCULAR 05/06 [facility] INFLUENZA VIRUS VACCINE, TRIVALENT (IIV3), SPLIT VIRUS, 0.5 ML DOSAGE, FOR INTRAMUSCULAR USE 05/04 [facility] PSYCHIATRIC DIAGNOSTIC INTERVIEW EXAMINATION 05/03 [facility] HEPATITIS A AND HEPATITIS B VACCINE (HEPA-HEPB), ADULT DOSAGE, FOR INTRAMUSCULAR USE 05/14 [facility] ANTHRAX VACCINE, FOR SUBCUTANEOUS OR INTRAMUSCULAR USE 02/11 [facility] TYPHOID VACCINE, CAPSULAR POLYSACCHARIDE (VICPS), FOR INTRAMUSCULAR USE 01/28 [facility] SKIN TEST; TUBERCULOSIS, INTRADERMAL 01/15 [facility] Social History Combined list of available smoking, tobacco, and other social history from [facility] of Defense and [facility] facilities. Social History Type Response Date Comment Sour e Tobacco smoking status NHIS VA-TOBACCO USER EVERY DAY 06/24/2022 [facility] History of tobacco use OK-TOBACCO USE WI 30 MIN OF WAKEUP 06/24/2022 [facility] History of tobacco use VA-TOBACCO USER E VERY DAY 01/28/2021 [facility] History of tobacco use OK-OKAES TOBACCO USE CURRENT NRT DECLINE 01/02/2021 [facility] History of tobacco use VA-TOBACCO USER E VERY DAY 07/11/2020 [facility] History of tobacco use VA-TOBACCO USE CO UNSEL NO 11/23/2018 [facility] History of tobacco use OK-TOBACCO USE WI 30 MIN OF WAKEUP 06/02/2018 [facility] History of tobacco use CURRENT TOBACCO USER 05/27/2017 [facility] History of tobacco use CURRENT TOBACCO USER 05/12/2016 [facility] History of tobacco use CURRENT TOBACCO USER 04/08/2015 [facility] History of tobacco use CURRENT TOBACCO USER 01/16/2014 [facility] History of tobacco use CURRENT TOBACCO USER 04/05/2013 [facility] History of tobacco use CURRENT TOBACCO USER 05/18/2011 [facility] History of tobacco use CURRENT TOBACCO USER 07/27/2010 [facility] History of tobacco use CURRENT TOBACCO USER 09/23/2009 [facility] History of tobacco use CURRENT TOBACCO USER 12/03/2008 [facility] History of tobacco use CURRENT TOBACCO USER 02/09/2008 [facility] History of tobacco use PATIENT IS TOBACCO USER 08/14/2007 [facility] History of tobacco use CURRENT TOBACCO USER 05/04/2007 [facility] This section is an empty social history section. [facility] Plan of Care List of future care activities from Department [facility] facilities. Additional future care activities may be listed in the Assessment and Plan section. Date/Time Care Activity Care Activity Detail Facili ty 05/06/2023 AMBULATORY - PSYCHIATRY AMBULATORY - PSYC HIATRY [facility] Advance Directives List of completed, amended, or rescinded Advance Directives on record at [facility] facilities. An actual copy of the Directive is not included. Date Advance Directive Provider Source 05/28/2008 ADVANCE DIRECTIVE NANDINI GU [facility] 10/11/2007 ADVANCE DIRECTIVE BIBI RODRIGUEZ [facility]
--- OUTSIDE RECORDS SUMMARY | 2023-04-26 12:48 | XMS_ITS | Encounter Summary ---
Author Name [facility] Organization Department of Vetera Affairs Address [address] [place] [address] Support Name Relationship Address Phone YESSY MAYO Next of Kin [address] [place] [address] YESSY MAYO Emergency Contact [address] [place], [place] [phone] MICHELLE MAYO RC Next of Kin UNKNOWN GABY WARNER [address] CHARLESYUE PINEDO Emergency Contact Unknown Selected Encounter This section includes the information on record at CO for the Encounter. Date/Time Encounter Type Encounter Description Reason Provider Source Nov 22, 2022 01:30 PM MTMS BY PHARM EST 15 MIN CLINICAL PHARMACY ICD-10-CM E66.9 Obesity, unspecified JOSE HULL ND R IHE Encounter Template Text not used by CO Assessments - Encounter Diagnoses This section includes the primary and secondary diagnoses documented for the Encounter. Date/Time Primary/Secondary Diagnosis Diagnosis Name Provider Source Nov 22, 2022 01:48 PM PRIMARY Obesity, unspecified JOSE HULL ND R [facility] Plan of Treatment: Future Appointments (+ 6 months) and Future Tests (+/- 45 days) The Plan of Treatment section includes future care activities for the patient from all [facility] This section includes future appointments and future orders which are active, pending or scheduled. Future Appointments This section includes appointments that were scheduled to occur 6 months from the date of the Encounter, up to a maximum of 20 appointments. The data comes from all [place] treatment facilities. Appointment Date/Time Appointment Type Appointme nt Facility Name Nov 29, 2022 11:00 AM AMBULATORY - PSYCHIATRY [facility] Dec 15, 2022 11:00 AM [facility] Dec 15, 2022 11:30 AM AM[facility] Dec 15, 2022 12:19 PM [facility] Dec 16, 2022 08:00 AM AMBULATORY - REHAB MEDICIN E [facility] Dec 16, 2022 01:57 PM AMBULATORY - NONE [facility] Jan 10, 2023 01:00 PM AMBULATORY - PS[facility]CHIATRY [facility] Jan 11, 2023 03:00 PM AMBULATORY - [facility]ATRY [facility] Jan 19, 2023 08:00 AM AMBULATORY - REHAB MEDICIN E [facility] Jan 21, 2023 02:00 PM AMBULATORY - PS[facility]IATRY [facility] Feb 14, 2023 10:00 AM AMBULATORY - [facility]ATRY [facility] Mar 02, 2023 09:30 AM AMBULATORY - REHAB MEDICIN E [facility] Mar 15, 2023 01:45 PM [facility] Mar 31, 2023 05:00 PM AMBULATORY - REHAB MEDICIN E [facility] May 06, 2023 01:30 PM AMBULATORY - [facility]ATRY [facility] May 09, 2023 01:30 PM AMBULATORY - REHAB MEDICIN [facility] Active, Pending, and Scheduled Orders This section includes a listing of several types of active, pending, and scheduled orders, including clinic medications orders, diagnostic test orders, procedure orders and consult orders; where the start date of the order is 45 days before the date of the Encounter or 45 days after the date of theEncounter. The data comes from all [facility]. Test Date/Time Test Type Test Details Facility Name Dec 15, 2022 12:00 AM Laboratory - Chemi stry Order URINALYSIS URINE WC [facility] Dec 15, 2022 11:57 AM Consult Order COLONOSCOP Y DIAGNOSTIC OUTPT Cons Terrestrial Ecologist's Choice [facility] Lab Results: +/- 30 days of the encounter This section includes the Chemistry and Hematology Lab Results on record with CO for the patient. Radiology Reports and Pathology Reports are provided separately, in subsequent sections. Lab Results This section contains the Chemistry/Hematology Results that were resulted 30 days before or 30 daysafter the date of the Encounter. Date/Time Source Result Type Result - Unit Interpretation Reference Range Comment Dec 15, 2022 12:28 PM [facility] TSH W/REFLEX TO FREE T4 Specimen Type: PLASMA Comment: Elevated triglyceride result from a non-fasting specimen should be interpreted with caution. A fasting panel is recommended for accurate triglycerides when trigs are >200 from a non-fasting specimen. Ordering Provider: ISREAL BRIGGS Report Released Date/Time: Dec 15, 2022 11:19 AM Reporting Lab: [facility] [id number] Performing Lab: [facility] [id number] TSH 2.94 0.35-4.94 Dec 15, 2022 12:28 PM [facility] HEMOGLOBIN A1C Specimen Type: BLOOD Comment: Values obtained from A1C measurements can vary. For typical A1C assays, a reported value of 7.0 could actually be between 6.7 and 7.3 if measured by a reference method. A reported value of 9.0 could actually be between 8.7 and 9.3. Ref: http://www.ngs p.org/CAPdata. asp Ordering Provider: ISREAL BRIGGS Report Released Date/Time: Dec 15, 2022 11:19 AM Reporting Lab: [facility] [id number] Performing Lab: [facility] [id number] HEMOGLOBIN A1C 5.2 4.0-6.0 Dec 15, 2022 12:28 PM [facility] LIPID PANEL,NON-FASTING Specimen Type: PLASMA Comment: Elevated triglyceride result from a non-fasting specimen should be interpreted with caution. A fasting panel is recommended for accurate triglycerides when trigs are >200 from a non-fasting specimen. Ordering Provider: ISREAL BRIGGS Report Released Date/Time: Dec 15, 2022 11:19 AM Reporting Lab: [facility] [id number] Performing Lab: [facility] [id number] CHOLESTEROL 177 <199 .HDL 35 L >40 LDL CALCULATION 84 <99 VLDL CALCULATION 58 H <29 NON HDL CHOLESTEROL 142 H <129 TRIG(NON FASTING) 289 H <149 Dec 15, 2022 12:28 PM [facility] COMPREHENSIVE METABOLIC PANEL+MG Specimen Type: PLASMA Comment: Elevated triglyceride result from a non-fasting specimen should be interpreted with caution. A fasting panel is recommended for accurate triglycerides when trigs are >200 from a non-fasting specimen. Ordering Provider: ISREAL BRIGGS Report Released Date/Time: Dec 15, 2022 11:19 AM Reporting Lab: [facility] [id number] Performing Lab: [facility] [id number] CREATININE 0.9 0.7-1.2 UREA NITROGEN 11 8-26 GLUCOSE 91 70-100 SODIUM 141 136-145 POTASSIUM 4.4 3.5-5.1 CHLORIDE 105 98-107 CO2 27 22-29 CALCIUM 9.6 8.4-10.2 PROTEIN,TOTAL 7.6 6.0-8.3 ALBUMIN 4.4 3.5-5.2 BILIRUBIN, TOTAL 0.4 0.2-1.2 MAGNESIUM 2.1 1.6-2.6 ANION GAP 9 5-15 ALKALINE PHOSPHATASE 78 40-150 ALT/SGPT 23 <55 AST/SGOT 24 <34 .CREAT EGFR(CKD-EPI) >90 >60 Dec 15, 2022 12:28 PM [facility] CBC & DIFF Specimen Type: BLOOD Comment: Automated Differential Performed Ordering Provider: ISREAL BRIGGS Report Released Date/Time: Dec 15, 2022 11:19 AM Reporting Lab: [facility] [id number] Performing Lab: [facility] [id number] WBC 8.63 4.0-11.0 RBC 4.54 L 4.6-6.2 HGB 14.5 13.5-17.9 HCT 44.0 41-54 MCV 96.9 80-100 MCH 31.9 27-33 MCHC 33.0 32.0-37.5 PLT 302 150-400 MPV 8.7 7.4-10.4 NEUT 49.9 40.0-80.0 LYMPHS 39.2 15.0-45.0 MONO 8.2 2.0-12.0 EOSINO 2.2 0.0-6.0 BASO 0.3 0.0-2.0 RDW 14.4 11.5-14.5 ABS LYMPH 3.38 1.0-4.0 ABS MONO 0.71 0.1-1.0 ABS NEUT 4.30 2.0-7.7 ABS EOS 0.19 0-0.5 ABS BASO 0.03 0-0.2 IG(META,MYELO, PRO) 0.2 ABS IMMATURE GRAN 0.02 0-0.1 Social History: Smoking Status (Most current) and Tobacco Use (All prior to encounter date) This section includes the most current, and the historical, smoking and tobacco- related health factors from the CO facility where the Encounter took place. Current Smoking Status This section includes the most current smoking, or tobacco-related health factor, from the CO facility where the Encounter took place. Date/Time Current Smoking Status Comment Facil ity Jun 24, 2022 08:15 AM VA-TOBACCO USER EVERY DAY [facility] Tobacco Use History This section includes a history of the smoking, or tobacco-related health factors, that were collected on or before the date of the Encounter. The data comes from the CO facility where the Encounter took place. Date/Time Smoking Status/Tobacco Use Comment F acility Jun 24, 2022 08:15 AM VA-TOBACCO USE ADVICE [facility] Jun 24, 2022 08:15 AM VA-TOBACCO USE ARMATURE WINDER NO [facility] Jun 24, 2022 08:15 AM VA-TOBACCO USE MED NO [facility] Jun 24, 2022 08:15 AM VA-TOBACCO USE WI 30 MIN OF WAKE UP [facility] Jun 24, 2022 08:15 AM VA-TOBACCO USER EVERY DAY [facility] Jan 28, 2021 10:30 AM VA-TOBACCO USE 5 TO 15 YEARS [facility] Jan 28, 2021 10:30 AM VA-TOBACCO USE ADVICE [facility] Jan 28, 2021 10:30 AM VA-TOBACCO USE ARMATURE WINDER NO [facility] Jan 28, 2021 10:30 AM VA-TOBACCO USE MED NO [facility] Jan 28, 2021 10:30 AM VA-TOBACCO USE WI 30 MIN OF WAKE UP [facility] Jan 28, 2021 10:30 AM VA-TOBACCO USER EVERY DAY [facility] Jan 02, 2021 12:33 PM VA-VAAES TOBACCO U SE CURRENT NRT DECLINE [facility] August 14, 2007 11:03 AM PATIENT IS TOBACCO USER [facility] Advance Directives: All historical and current Section Date Range: From patient's date of to the date document was created. This section includes ALL of a patient's completed or amended CO Advance and Rescinded Directives. The entries below indicate that a directive exists for the patient, but an actual copy is not included with this document. The data comes from all CO facilities. Date Advance Directives Provider Source May 28, 2008 ADVANCE DIRECTIVE NANDINI GU [facility] Oct 11, 2007 ADVANCE DIRECTIVE BIBI RODRIGUEZ [facility] Encounter Notes: All associated encounter notes This section contains the clinical notes associated to the Encounter. Date/Time Encounter Note(s) Provider Source Nov 22, 2022 01:30 PM PHARMACY NOTE: LOCAL TITLE: PHARMACOTHERAPY-CLINICAL PHARMACY NOTE STANDARD TITLE: PHARMACY NOTE DATE OF NOTE: NOV 22, 2022@13:30 ENTRY DATE: NOV 22, 2022@13:30:52 AUTHOR: NICOLASA HULL COSIGNER: URGENCY: STATUS: COMPLETED Visit Type: VVC Subsequent Visit Patient's identity verified using two identifiers. Visit conducted by CO Video Connect (VVC) Patient verbal consent obtained. Location/emergency number confirmed. NNEKA MAYO is a 47 YO MALE followed by [facility] for medication management. SUBJECTIVE: - requesting Ozempic however due to shortage/backorder this is unavaialable until further notice - gained ~20 lbs after spinal fusion January, recovery has been slow. still unable to exercise due to mobility issues - continues to take oxycodone since surgery - no change in lifestyle factors *2 meals per day, few snacks *breakfast is typically eggs and toast, dinner is meat and veggies +/- potato Reasons for desired weight loss: increase mobility, alleviate back pain. Feels limited in mobility, and attributes wt gain to sitting around since surgery ROS: (-) hypotension symptoms (-) HTN symptoms Home BP Readings: not checking Adherence to medications: no missed or extra doses reported OBJECTIVE: ALLERGIES/ADR: VICODIN (Apr 17, 2013) MEDICATION RECONCILIATION: Active and Recently Outpatient Medications (excluding Supplies): Active Outpatient Medications Status 1) AMPHETAMINE/DEXTROAMPHETAMI NE 30MG TAB TAKE ONE ACTIVE TABLET BY MOUTH TWICE A DAY FOR ATTENTION 2) ASPIRIN 81MG EC TAB TAKE ONE TABLET BY MOUTH EVERY ACTIVE DAY FOR ISCHEMIC STROKE DO NOT CHEW 3) ATORVASTATIN CALCIUM 80MG TAB TAKE ONE TABLET BY ACTIVE MOUTH AT BEDTIME FOR CHOLESTEROL 4) BUPROPION HCL 150MG 12HR SA TAB TAKE ONE TABLET BY ACTIVE MOUTH EVERY DAY FOR 3 DAYS, THEN TAKE ONE TABLET TWICE A DAY FOR WEIGHT LOSS 5) CALCIUM CARB 500MG (CA 200MG) CHEW TAB CHEW ONE ACTIVE TABLET BY MOUTH TWICE A DAY FOR CALCIUM SUPPLEMENT 6) CHOLECALCIF 25MCG (D3-1,000UNIT) TAB TAKE ONE TABLET ACTIVE BY MOUTH EVERY DAY FOR VITAMIN D 7) DIVALPROEX 500MG 24HR (ER) SA TAB TAKE TWO TABLETS BY ACTIVE MOUTH AT BEDTIME FOR MOOD 8) FLUOXETINE HCL 20MG CAP TAKE TWO CAPSULES BY MOUTH ACTIVE (S) EVERY DAY FOR MOOD, FOR ANXIETY 9) PROPRANOLOL HCL 80MG SA CAP TAKE ONE CAPSULE BY MOUTH ACTIVE EVERY MORNING FOR ANXIETY Inactive Outpatient Medications Status 1) AMPHETAMINE/DEXTROAMPHETAMI NE 30MG TAB TAKE ONE TABLET BY MOUTH TWICE A DAY FOR ATTENTION 2) TIZANIDINE HCL 4MG TAB TAKE ONE TABLET BY MOUTH THREE TIMES A DAY NEEDED FOR MUSCLE SPASMS Active Non-VA Medications Status 1) Non-VA ACETAMINOPHEN 500MG TAB 1000MG MOUTH EVERY 6 ACTIVE HOURS NEEDED 2) Non-VA BACLOFEN 10MG TAB 10MG MOUTH THREE TIMES A DAY ACTIVE NEEDED 3) Non-VA METHOCARBAMOL 750MG TAB 750MG MOUTH TWICE A ACTIVE DAY NEEDED 4) Non-VA OXYCODONE 5MG TAB 10MG MOUTH AT BEDTIME ACTIVE NEEDED 15 Total Medications Vitals: Temperature: Unavailable (10/15/2021 08:18) Blood Pressure: 120/77 (08/03/2022 13:59) Pulse: 93 (08/03/2022 13:59) Respiration: 18 (08/03/2022 13:59) Pain: 4 (08/03/2022 13:59) Height: Unavailable (10/15/2021 08:18) Weight: 271 lb [122.92 kg] (06/24/2022 09:01) BMI: BMI not available without height LABS: Basic Metabolic Panel SODIUM 137 (06/24/22) POTASSIUM 4.2 (06/24/22) CREATININE 0.9 (06/24/22) UREA NITROGEN 13 (06/24/22) GLUCOSE 92 (06/24/22) CO2 28 (06/24/22) CHLORIDE 102 (06/24/22) EGFR (11/12) 03/19/19 @ 1842 82 CREATININE EGFR (CKD-EPI) 06/24/22 @ 0757 >90 MAGNESIUM 2.1 (06/24/22) Collection DT Specimen Test Name Result Units Ref Range 06/24/2022 07:57 PLASMA CREATININE 0.9 mg/dL 0.7 - 1.2 09/22/2021 14:59 PLASMA!! CREATININE 1.1 mg/dL 0.7 - 1.2 03/19/2019 18:42 PLASMA CREATININE 1.0 mg/dL 0.7 - 1.2 06/24/2022 07:57 PLASMA .CREAT EGFR(CKD-E >90 Ref: >=60 09/22/2021 14:59 PLASMA!! .CREAT EGFR(CKD-E 84 Ref: >=60 03/19/2019 18:42 PLASMA ESTIMATED GFR(eGF >60 Ref: >=60 09/09/2017 12:40 PLASMA ESTIMATED GFR(eGF >60 Ref: >=60 08/15/2007 12:09 PLASMA!! ESTIMATED GFR(eGF >60 Ref: >=60 !! Indicates COMMENTS AVAILABLE...Refer to Interim Lab Report. CHOLESTEROL 206 H (06/24/22) MEASURED LDL____ LDL CALCULATION 106 H (06/24/22) HDL 35 L (06/24/22) TRIGLYCERIDE____ Collection DT Spec HGBA1C 06/24/2022 07:57 BLOOD 5.2 ASSESSMENT: #obesity - in contemplative stage of change, has started taking medication however has made no changes to lifestyle factors - encouraged him to do so within physical limitations - reasonable to continue bupropion monotherapy *avoiding naltrexone d/t taking oxycodone, avoiding phentermine d/t taking stimulants *may be reasonable to trial GLP-1 agonist pending availability changes PLAN: - continue bupropion SA 150mg BID #Disease-Specific Med Rec: Completed today #Labs: up to date - Educated vet on indication/risks/benefits of new/changed medication. - Education provided on therapeutic nonpharmacologic management to achieve goals - Vet advised of recent labs. - [place] verbalized understanding to all plans discussed today. Questions were answered to vet's satisfaction. Time spent: 15 minutes RTC: WINDY /sheila/ NICOLASA HULL Clinical Pharmacist Practitioner Signed: 11/22/2022 13:48 NICOLASA HULL [facility]
--- OUTSIDE RECORDS SUMMARY | 2023-04-26 12:50 | XMS_ITS | Clinical Summary ---
Author Name Unknown Organization [facility] Address [address] [place] [address] Care Team Providers Care Talent Acquisition Manager Name Role Phone Elsewhere, Pcp Primary Care Provider Unavailabl e Source Comments Patient records contain information from all sites at [facility]. For routine questions regarding patient records, call [phone] during business hours, M-F 8:00 AM - 5:00 PM Central Time. Record requests for emergency care only can be directed to [phone] at any time.[facility] Allergies Active Allergy Reactions Criticality Noted Date Comments Hydrocodone GI intolerance,Nause a And Vomiting 05/07/2008 Hydrocodone-Acetaminophen GI intolerance ,Other (see comments) 04/17/2013 Morphine Nausea Only 05/12/2016 Oxcarbazepine Other (see comments) 03/25/2007 Medications Medication Sig Dispensed Refills Start Date End Date Status acetaminophen (TYLENOL) 500 mg tablet Take 500 mg by mouth every 6 (six) hours as needed for pain. 0 Active atorvastatin (LIPITOR) 80 mg tablet Take 1 tablet by mouth at bedtime. 0 06/24/2022 Active bisacodyL (DULCOLAX) 5 mg EC tablet 10 mg. 0 07/09/2022 Active calcium carbonate (TUMS) 500 mg (200 mg calcium) chewable tablet 500 mg. 0 06/24/2022 Active calcium citrate (CALCITRATE) 950 mg (200 mg calcium) tablet Take 1 tablet by oral route 2 times every day. 0 01/07/2022 Active cholecalciferol, vitamin D3, 25 mcg (1,000 Unit) tablet 25 mcg. 0 06/24/2022 Activ e dextroamphetamine-a mphetamine (ADDERALL) 30 mg tablet Take 1 tablet by mouth 2 (two) times a day. 0 07/09/2022 Active diazePAM (VALIUM) 10 mg tablet 0 10/24/2021 Active divalproex (DEPAKOTE ER) 500 mg 24 hr tablet TAKE TWO TABLETS BY MOUTH AT BEDTIME FOR MOOD 0 02/10/2022 Active FLUoxetine (PROzac) 20 mg capsule TAKE TWO CAPSULES BY MOUTH EVERY DAY FOR MOOD, FOR ANXIETY 0 12/07/2021 Active hydrOXYzine (VISTARIL) 25 mg capsule Take 25-50 mg by mouth every 6 (six) hours as needed. 0 Active methocarbamoL (ROBAXIN) 750 mg tablet Take 1 tablet by mouth 2 (two) times a day as needed. 0 02/26/2022 Active propranoloL (INDERAL) 20 mg tablet 20 mg. 0 07/09/2022 Active propranoloL (INDERAL) 10 mg tablet TAKE ONE TO TWO TABLETS BY MOUTH TWICE A DAY NEEDED FOR ANXIETY 0 12/17/2021 Active sennosides-docusate sodium (SENOKOT-S) 8.6-50 mg per tablet Take 1-4 tablets by mouth. 0 01/24/2022 Active oxyCODONE (ROXICODONE) 5 mg immediate release tablet 0 10/24/2021 Active gabapentin (NEURONTIN) 300 mg capsule Take 1 capsule (300 mg total) by mouth 3 (three) times a day for 7 days, THEN 2 capsules (600 mg total) 3 (three) times a day for 7 days, THEN 3 capsules (900 mg total) 3 (three) times a day for 16 days. 207 capsule 0 11/12/2022 Active Active Problems Problem Noted Date Diagnosed Date Stroke Cerebrovascular Accident Personal History 11/12/2022 Radiculopathy Lumbar 11/12/2022 Foot Drop Left 11/12/2022 Social History Tobacco Use Types Packs/Day Years Used Date Smoking Tobacco: Every Day Cigarettes Tobacco Cessation:Ready to Q uit: Not Asked; Counseling Given: Not Answered Nutrition Answer Date Recorded Nutrition: EVOO Fat Source Unknown 07/22 Nutrition: Servings of Fruits/Vegetables per Day Not on file 07/22/2022 Dental Answer Date Recorded Dental: Regular Dentist Unknown 07/23/19 Sex and Gender Information Value Date Recorded Sex Assigned at Not on file Gender Identity Not on file Sexual Orientation Not on file Last Filed Vital Signs Vital Sign Reading Time Taken Comments Blood Pressure 114/55 11/12/2022 11:00 PM CDT Pulse 69 11/12/2022 11:00 PM CDT Temperature 36.9 ??C (98.4 ??F) 11/12/2022 10:04 PM C DT Respiratory Rate 20 07/22/2022 11:48 PM CDT Oxygen Saturation 98% 11/12/2022 11:00 PM CDT Inhaled Oxygen Concentration - - Weight 122 kg (268 lb 11.2 oz) 11/12/2022 10:07 PM CDT Height 185.4 cm (6' 1) 11/12/2022 10:07 PM CDT Body Mass Index 35.45 11/12/2022 10:07 PM CDT Plan of Treatment Health Maintenance Due Date Last Done Comments CT Colonography 1976 Cologuard 1976 Colonoscopy 1976 Colorectal Cancer Screening 1976 FIT 1976 HIV Screening 1976 Hepatitis C Screening 1976 Tobacco Cessation counseling 1976 COVID-19 Vaccine (#1) 1976 Depression Screening (Annual PHQ-2) 04/11/2022 Fasting Glucose for Diabetes Screening 03/03/2025 03/03/2022, 01/22/2022, 01/21/2022, Additional history exists Lipid (Cholesterol) Screening 01/21/2027 01/21/2022 DTaP,Tdap,and Td Vaccines (4 - Td or Tdap) 12/15/2032 12/15/2022, 03/09/2019, 06/28/2012, Additional history exists Hepatitis B Vaccines Completed 04/20/2005, 12/23/2004, 06/16/2004 Pneumococcal vaccine (0-64 years) Completed 12/15/2022, 01/09/2018, 06/16/2010 Influenza Vaccine Completed 03/15/2023, , 02/08/2022, Additional history exists Care Teams Talent Acquisition Manager Relationship Specialty Start Date End Date Elsewhere, Pcp PCP - General Internal Medicine 11/12/22
--- OUTSIDE RECORDS SUMMARY | 2023-04-26 12:51 | XMS_ITS ---
Author Name Unknown Organization [facility] Address [address] [place] [address] Care Team Providers Care Crude Unit Operator Name Role Phone Unavailable Unavailable Unavailable Surgery Details Not on file Complications Check Surgery Details section. Procedure Estimated Blood Loss Check Surgery Details section. Procedure Findings Check Surgery Details section. Procedure Specimens Taken Check Surgery Details section.
--- OUTSIDE RECORDS SUMMARY | 2023-04-26 12:51 | XMS_ITS | Referral Summary ---
Author Name Unknown Organization [facility] Address [address] [place] [address] Care Team Providers Care Hand Scraper Name Role Phone Elsewhere, Pcp Primary Care Provider Unavailabl e Source Comments Patient records contain information from all sites at [facility]. For routine questions regarding patient records, call [phone] during business hours, M-F 8:00 AM - 5:00 PM Central Time. Record requests for emergency care only can be directed to [phone] at any time.[facility] Allergies Active Allergy Reactions Criticality Noted Date [...] 11/12/2022 10:07 PM CDT Plan of Treatment Not on file Care Teams Hand Scraper Relationship Specialty Start Date End Date Elsewhere, Pcp PCP - General Internal Medicine 11/12/22
--- OUTSIDE RECORDS SUMMARY | 2023-04-26 12:51 | XMS_ITS | Encounter Summary ---
Author Name Unknown Organization [facility] Address [address] [place] [id number] Care Team Providers Care Fabrication And Assembly Supervisor Name Role Phone Unavailable Primary Care Provider Unavailabl e Reason for Referral * Outpatient (Routine) - Closed Specialty Diagnoses / Procedures Referred By Hector t Referred To Contact Emergency Medicine Diagnoses Fracture Ulna Proximal Closed Initial Right Leigh Ann Purvis D.O. [address] [place] [phone] [facility] Referral ID Status Reason Start Date Expiration Date Visits Re quested Visits Authorized [id number] Closed 07/22/2022 07/21/2025 1 1 Reason for Visit * Reason Comments Arm Injury Patient is coming in for pain in right arm after falling off a trailer this afternoon. Isn't able to take Advil due to having back surgery in january. Encounter Details Date Type Department Care Team ([facility] Contact Info) Description 07/22/2022 9:39 PM CDT - 07/22/2022 11:45 PM CDT Emergency [place] [facility] [address] [place] [phone] Leigh Ann Purvis D.O. [address] [place] [phone] Fracture Ulna Proximal Closed Initial Right (Primary Dx) Discharge Disposition: Home or Self Care Social History Tobacco Use Types Packs/Day Years [...] on file Sexual Orientation Not on file documented as of this encounter Last Filed Vital Signs Vital Sign Reading Time Taken Comments Blood Pressure 127/72 07/22/2022 11:15 PM CDT Pulse 80 07/22/2022 11:15 PM CDT Temperature 36.9 ??C (98.4 ??F) 07/22/2022 11:15 PM C DT Respiratory Rate 18 07/22/2022 11:15 PM CDT Oxygen Saturation 94% 07/22/2022 11:15 PM CDT Inhaled Oxygen Concentration - - Weight 126 kg (278 lb 3.2 oz) 07/22/2022 9:46 PM CDT Height 185.4 cm (6' 1) 07/22/2022 9:46 PM CDT Body Mass Index 36.7 07/22/2022 9:46 PM CDT documented in this encounter Discharge Instructions * Discharge Instructions* Leigh Ann Purvis D.O. - 07/22/2022 11:09 PM CDT Take oxycodone every 4-6 hours if needed for severe pain. Do not work or drive while taking oxycodone, as it can make you drowsy. Oxycodone can cause constipation. If needed take an kcea-zbu-nverlkm stool softener such as Colace (2 tablets) or MiraLax (1 capful) 1-3 times per day. Follow-up with orthopedics either Dr. Garner or the [facility] for re-evaluation. Call tomorrow to schedule an appointment, . * Attachments The following attachments cannot be sent through Care Everywhere. * Radial Head Fracture (Portuguese) documented in this encounter Medications at Time of Discharge Medication Sig Dispensed Refills Start Date End Date atorvastatin (LIPITOR) 80 mg tablet Take 1 tablet by mouth at bedtime. 0 06/24/2022 bisacodyL (DULCOLAX) 5 mg EC tablet 10 mg. 0 07/09/2022 calcium carbonate (TUMS) 500 mg (200 mg calcium) chewable tablet 500 mg. 0 06/24/2022 calcium citrate (CALCITRATE) 950 mg (200 mg calcium) tablet Take 1 tablet by oral route 2 times every day. 0 01/07/2022 cholecalciferol, vitamin D3, 25 mcg (1,000 Unit) tablet 25 mcg. 0 06/24/2022 dextroamphetamine-amphe tamine (ADDERALL) 30 mg tablet Take 1 tablet by mouth 2 (two) times a day. 0 07/09/2022 diazePAM (VALIUM) 10 mg tablet 0 10/24/2021 divalproex (DEPAKOTE ER) 500 mg 24 hr tablet TAKE TWO TABLETS BY MOUTH AT BEDTIME FOR MOOD 0 02/10/2022 FLUoxetine (PROzac) 20 mg capsule TAKE TWO CAPSULES BY MOUTH EVERY DAY FOR MOOD, FOR ANXIETY 0 12/07/2021 methocarbamoL (ROBAXIN) 750 mg tablet Take 1 tablet by mouth 2 (two) times a day as needed. 0 02/26/2022 oxyCODONE (ROXICODONE) 5 mg immediate release tablet 0 10/24/2021 propranoloL (INDERAL) 10 mg tablet TAKE ONE TO TWO TABLETS BY MOUTH TWICE A DAY NEEDED FOR ANXIETY 0 12/17/2021 propranoloL (INDERAL) 20 mg tablet 20 mg. 0 07/09/2022 sennosides-docusate sodium (SENOKOT-S) 8.6-50 mg per tablet Take 1-4 tablets by mouth. 0 01/24/2022 oxyCODONE (ROXICODONE) 5 mg immediate release tabletIndications:Acute Pain Take 1 tablet (5 mg total) by mouth every 4 (four) hours as needed for pain for up to 3 days Indication: Acute Pain. 10 tablet 0 07/22/2022 07/25/2022 documented as of this encounter ED Notes * Leigh Ann Purvis D.O. - 07/22/2022 11:45 PM CDTAssociated Order(s): Splint Application Post-Procedure Diagnose(s): Fracture Ulna Proximal Closed Initial Right [facility] EMERGENCY DEPARTMENT ENCOUNTER Patient Name: Drake Lundberg Birthdate 1975 Date of evaluation: 07/22/2022 Provider: Leigh Ann Purvis D.O. PCP: No primary care provider on file. SUBJECTIVE CHIEF COMPLAINT/REASON FOR VISIT Arm Injury (Patient is coming in for pain in right arm after falling off a trailer this afternoon. Isn't able to take Advil due to having back surgery in january. ) HISTORY OF PRESENT ILLNESS Drake Lundberg is a 47 y.o. male who presents to the emergency department with right lateral elbow pain after a slip and fall several hours prior to arrival. Pain has been gradually worsening throughout the day. He has not taken any medications because Tylenol does not work for him and he has been told not to take Advil for a year after a back surgery 6 months ago. No weakness or numbness. Healso has a bruise to his right hip, but no difficulty ambulating. No head trauma or loss of consciousness. History provided by: Significant other and patient MEDICAL HISTORY History reviewed. No pertinent past medical history. OBJECTIVE VITAL SIGNS BP 127/72 Pulse 80 Temp 36.9 ??C (Temporal) Resp 20 Ht 185.4 cm Wt 126 kg SpO2 94% BMI 36.70 kg/m?? PHYSICAL EXAMINATION: Constitutional: Nursing note and vitals reviewed. No distress. Cardiovascular: Capillary refill: takes less than 3 seconds Musculoskeletal: Comments: Tenderness over the lateral elbow and proximal radius. Wrist is nontender, but squeezing the distal forearm causes pain to the proximal forearm. No tenderness at the olecranon process. Upper arm and shoulder are nontender with normal range of motion. Input Output Clerk strength is 5/5. No sensory deficit. Capillary refill less than 3 seconds. Neurological: Alert and oriented to person, place, and time. Skin: Skin is warm and dry. Small abrasion to the ulnar aspect of the proximal right forearm. Psychiatric: He has a normal mood and affect. Behavior is normal. DIAGNOSTICS RADIOLOGY: DX Radius Ulna Right 2 Views Final Result No acute fracture. No dislocation. No aggressive bone lesion. No radiopaque foreign body. No joint effusion. Elbow degenerative productive changes. DX Elbow Right 3+ Views Final Result No acute fracture. No dislocation. No aggressive bone lesion. No radiopaque foreign body. No joint effusion. Elbow degenerative productive changes. PROCEDURES: Unless otherwise noted below, none. Splint Application Performed by: Leigh Ann Purvis D.O. Authorized by: Leigh Ann Purvis D.O. PROCEDURE DETAILS Immobilization: sling and splint Splint type: long arm Supplies used: Ortho-Glass, elastic bandage and cotton padding PRE PROCEDURE DETAILS Procedure type: application Performed by: physician Indication: fracture Location: elbow Elbow: right elbow Circulation distal to injury: capillary refill < 2 sec, warm and pink Movement distal to injury: normal Sensation distal to injury: normal SEDATION / ANESTHESIA Anesthesia method: none POST PROCEDURE DETAILS Procedure completed successfully: yes Pain: improved Circulation distal to injury: capillary refill < 2 sec Movement distal to injury: normal Sensation distal to injury: normal Complications: no immediate complications EMERGENCY DEPARTMENT COURSE and DIFFERENTIAL DIAGNOSIS/MDM: Patient was given the following medications: Medications oxyCODONE IR tablet 5 mg (ROXICODONE) (5 mg oral Given 07/22/222308) MDM: IMPRESSION AND PLAN Patient with progressive right elbow pain throughout the day after a slip and fall off of a trailer. He is a bruise to his hip but is exam is otherwise atraumatic. He is neurovascularly intact. An x-ray of the right forearm and elbow were obtained. Radiology notes degenerative changes of the elbow but no acute fracture. Patient has significant tenderness of the lateral elbow as well as pain in the left lateral elbow with the squeeze test of the distal forearm. I am concerned for an nonvisualized fracture and discussed with patient putting him in a splint for a week and falling will with Orthopedics for re-evaluation. Patient was given an oxycodone in the ED for pain and I will prescribe a few for home. I personally reviewed the radiology image(s) and reviewed the radiology report(s). The Radiology exam interpretation(s) is/are documented in ED Course. FINAL IMPRESSION: Final diagnoses: [S52.001A] Fracture Ulna Proximal Closed Initial Right ED DISCHARGE MEDS: ED Prescriptions Medication Sig Dispense Start Date End Date Auth. Provider oxyCODONE (ROXICODONE) 5 mg immediate release tablet Take 1 tablet (5 mg total) by mouth every 4 (four) hours as needed for pain for up to 3 days Indication: Acute Pain. 10 tablet 07/22/2022 07/25/2022Leigh Ann Purvis D.O. FOLLOW UP: Consults and Follow-ups to Schedule POST ED VISIT Orthopedic Surgery Jul 22, 2022 (Approximate) [facility] you to schedule an appointment. Region: [facility] ED Visit F/U Specialty?: Orthopedic Surgery Contact Information for Follow-ups Chase Garner D.O. Specialty: Orthopedic Surgery [address] [place] [phone] Next Steps: Schedule an appointment as soon as possible for a visit Instructions: [phone], Call to schedule a follow up appointment. Selina Lopez Sarah, D.O. 07/23/22 0401 documented in this encounter Plan of Treatment Scheduled Referrals Name Type Priority Associated Diagnoses Order Schedule POST ED VISIT Orthopedic Surgery Outpatient Referral Routine Fracture Ulna Proximal Closed Initial Right Expected: 07/22/2022 (Approximate), Expires: 10/22/2023 documented as of this encounter Procedures Procedure Name Priority Date/Time Associated Diagnosis Comments SPLINT APPLICATION Routine 07/22/2022 11 :45 PM CDT Fracture Ulna Proximal Closed Initial Right DX RADIUS ULNA RIGHT 2 VIEWS RAD - Semiurgent (Fast; most ED patients; some inpatients) 07/22/2022 10:57 PM CDT DX ELBOW RIGHT 3+ VIEWS RAD - Semiurgent (Fast; most ED patients; some inpatients) 07/22/2022 10:56 PM CDT documented in this encounter Results * Splint Application (07/22/2022 11:45 PM CDT) Narrative Leigh Ann Purvis D.O. - 07/22/2022 11:45 PM CDT Leigh Ann Purvis D.O. ? 07/23/2022 ??4:01 AM Splint Application Performed by: Leigh Ann Purvis D.O. Authorized by: Rice, Leigh Ann, D.O. PROCEDURE DETAILS Immobilization: sling and splint Splint type: long arm Supplies used: Ortho-Glass, elastic bandage and cotton padding PRE PROCEDURE DETAILS Procedure type: application ?? Performed by: physician Indication: fracture ?? Location: elbow Elbow: right elbow Circulation distal to injury: capillary refill < 2 sec, warm and pink ?? Movement distal to injury: normal ?? Sensation distal to injury: normal ?? SEDATION / ANESTHESIA Anesthesia method: none POST PROCEDURE DETAILS Procedure completed successfully: yes ?? Pain: improved Circulation distal to injury: capillary refill < 2 sec ?? Movement distal to injury: normal ?? Sensation distal to injury: normal ?? Complications: no immediate complications ?? Leigh Ann Purvis D.O. PROCEDURE/MINOR SURG ICAL ORDERABLES * DX Radius Ulna Right 2 Views (07/22/2022 10:57 PM CDT) Anatomical Region Laterality Modality Upper Extremity, Forearm, Mu sculoskeletal RST LOS, Musculoskeletal ARZ LOS, Muskuloskeletal FLA LOS Right Digit al Radiography 07/22/2022 11:0 1 PM CDT Impressions 07/22/2022 11:02 PM CDT No acute fracture. No dislocation. No aggressive bone lesion. No radiopaque foreign body. No joint effusion. Elbow degenerative productive changes. Narrative 07/22/2022 11:02 PM CDT EXAM: DX ELBOW RIGHT 3+ VIEWS, DX RADIUS ULNA RIGHT 2 VIEWS Procedure Note Kieran Caldera M.D. - 07/22/2022 EXAM: DX ELBOW RIGHT 3+ VIEWS, DX RADIUS ULNA RIGHT 2 VIEWS IMPRESSION: No acute fracture. No dislocation. No aggressive bone lesion. Noradiopaque foreign body. No joint effusion. Elbow degenerative productive changes. Leigh Ann Purvis D.O. IMG DIAGNOSTIC IMAGI NG PROCEDURES * DX Elbow Right 3+ Views (07/22/2022 10:56 PM CDT) Anatomical Region Laterality Modality Upper Extremity, Elbow, Musc uloskeletal RST LOS, Musculoskeletal ARZ LOS, Muskuloskeletal FLA LOS Right Digit al Radiography 07/22/2022 11:0 1 PM CDT Impressions 07/22/2022 11:02 PM CDT No acute fracture. No dislocation. No aggressive bone lesion. No radiopaque foreign body. No joint effusion. Elbow degenerative productive changes. Narrative 07/22/2022 11:02 PM CDT EXAM: DX ELBOW RIGHT 3+ VIEWS, DX RADIUS ULNA RIGHT 2 VIEWS Procedure Note Kieran Caldera M.D. - 07/22/2022 EXAM: DX ELBOW RIGHT 3+ VIEWS, DX RADIUS ULNA RIGHT 2 VIEWS IMPRESSION: No acute fracture. No dislocation. No aggressive bone lesion. Noradiopaque foreign body. No joint effusion. Elbow degenerative productive changes. Leigh Ann SCHNEIDER DIAGNOSTIC IMAGI NG PROCEDURES documented in this encounter Visit Diagnoses Diagnosis Fracture Ulna Proximal Closed Initial Right- Primary documented in this encounter Administered Medications Inactive Administered Medications - up to 3 most recent administrations Medication Order MAR Action Action Date Dose Rate Site oxyCODONE IR tablet 5 mg (ROXICODONE) 5 mg, oral, Once, On Kaylyn 07/22/22 at 2307, For 1 dose Given 07/22/2022 11:09 PM CDT 5 mg documented in this encounter Active and Recently Administered Medications Times are shown in CDT. Scheduled Medication Order 07/20/2022 07/21/2022 07/22/2022 oxyCODONE IR tablet 5 mg (ROXICODONE) (COMPLETED) 5 mg, oral, Once, On Kayyln 07/22/22 at 2307, For 1 dose 230 (Given - Provid er: Leigh Ann Caldwell R.N.) documented in this encounter
--- OUTSIDE RECORDS SUMMARY | 2023-04-26 12:51 | XMS_ITS | Encounter Summary ---
Author Name Unknown Organization [facility] Address [address] [place] [address] Care Team Providers Care Hand Pleater Name Role Phone Unavailable Primary Care Provider Unavailabl e Reason for Visit * Reason Comments Fracture Arm injury, right wr ist & elbow fx, radial fx right, last xray 07/22/22. Very sore and painful. Pain in lower back too since his arm injury. Back surgery in January. Since his stroke after his back surgery he has been falling a lot. Fracture Injury * Outpatient (Routine) - Closed Specialty Diagnoses / Procedures Referred By Hector t Referred To Contact Emergency Medicine Diagnoses Fracture Ulna Proximal Closed Initial Right Leigh Ann Purvis D.O. [address] [place] [phone] [facility] Region Referral ID Status Reason Start Date Expiration Date Visits Re quested Visits Authorized [id number] Closed 07/22/2022 07/21/2025 1 1 Encounter Details Date Type Department Care Team (Latest Contact Info) Description 07/23/2022 11:30 AM CDT Comprehensive Visit Department of Orthopedic Surgery in [place], [place] [address] [place] [phone] Chase Garner D.O. [address] [place] [phone] Fracture Ulna Proximal Closed Initial Right Discharge Disposition: Home or Self Care Social History Tobacco Use Types Packs/Day Years Used Date Smoking Tobacco: Every Day Cigarettes Nutrition Answer Date Recorded Nutrition: EVOO Fat [...] Sign Reading Time Taken Comments Blood Pressure - - Pulse 78 07/23/2022 11:06 AM CDT Temperature 36.8 ??C (98.2 ??F) 07/23/2022 11:06 AM C DT Respiratory Rate - - Oxygen Saturation 96% 07/23/2022 11:06 AM CDT Inhaled Oxygen Concentration - - Weight 126 kg (277 lb 12.5 oz) 07/23/2022 11:06 AM CDT Height 185 cm (6' 0.84) 07/23/2022 11:06 AM CDT Body Mass Index 36.81 07/23/2022 11:06 AM CDT documented in this encounter Consult Notes * Chase Garner D.O. - 07/23/2022 11:30 AM CDT REFERRING PROVIDER: Leigh Ann Purvis D.O. CHIEF COMPLAINT Chief Complaint Patient presents with Right Wrist - Fracture Arm injury, right wrist & elbow fx, radial fx right, last xray 07/22/22. Very sore and painful. Pain in lower back too since his arm injury. Back surgery in January. Since his stroke after his back surgery he has been falling a lot. Right Elbow - Fracture Right Arm - Injury HISTORY OF PRESENT ILLNESS Drake Lundberg is a 47 y.o. Male who presents today for evaluation of his right elbow. Patient sustained a fall yesterday onto his right upper extremity. He went into the emergency room and imaging was obtained. There was question about a possible radial head fracture. He was placed in a long-arm splint and told to follow-up with orthopedics. Patient has stroke in January in his had some subsequent left-sided weakness and frequent falls since this. He is right- hand dominant. He is currentlyretired. PAST MEDICAL HISTORY There is no problem list on file for this patient. The patient's pertinent problems, past surgical history, family history, social history, medications, and allergies were reviewed at the time of this visit. PHYSICAL EXAM Pulse 78 Temp 36.8 ??C (Temporal) Ht 185 cm Wt 126 kg SpO2 96% BMI 36.81 kg/m?? The patient is well appearing, and in no acute distress. They are alert and oriented. Patient is normocephalic, and has equal chest rise bilaterally. There is a normal inspiratory effort. Examination of the right upper extremity Generalized swelling about the elbow and upper forearm. Tenderness to palpation about the medial and lateral epicondyle Range of motion is 30-120 degrees. He was stiff prior to his fall Sensation intact to light touch throughout upper extremity Radial pulse 2 +good cap refill AIN/PIN/R/U/M nerves grossly intact IMAGE STUDIES @DX Elbow Right 3+ Views, DX Radius Ulna Right 2 Views Result Date: 07/22/2022 Impression: No acute fracture. No dislocation. No aggressive bone lesion. No radiopaque foreign body. No joint effusion. Elbow degenerative productive changes. 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 He has significant osteoarthritic change throughout his elbow. I agree with Radiology and do not appreciate any acute fractures. I think the changes of his radial head are due to osteophyte formation. We removed the long arm splint today and I stated he can use a sling for comfort over the next week and wean out of it as tolerated. Discussed that I want him to continue to move his elbow and perform gentle [id number]-jw-honruc and advance to full activity as tolerated so he does not get any further stiffness. Discussed that if he continues to haveissues or has problems with his arthritis down the road that we could always consider a steroid inje ction into his elbow joint or get him set an elbow surgeon to discuss surgical options. He voiced understanding of this and all his questions were answered. We will see him back on an as-needed basis. Total time spent providing patient care was 20 minutes. This includes time spent with the patient and time spent on same day pre/post visit EMR documentation, orders, medications, procedures, and communication with other health child care associate teacher. documented in this encounter Plan of Treatment Not on file documented as of this encounter Visit Diagnoses Diagnosis Fracture Ulna Proximal Closed Initial Right documented in this encounter
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
== END 2023-04-26 12:29 | disposition home or self-care (01) ==
PROVIDERS: PCP Family Medicine; Visit Provider Family Medicine
DX: E66.9 Obesity, unspecified (principal); E78.5 Hyperlipidemia, unspecified; R73.03 Prediabetes
CPT/HCPCS: 80048; 80061; 85025

== ENCOUNTER 2024-05-22 10:48 | Outpatient (CLI) | payer OTHER, SELFPAY ==
[2024-05-22 11:23] LABS: Basophils Absolute Auto 0.02 K/uL (0.00-0.30); Basophils Percent Auto 0.3 % (0.0-3.0); Eosinophils Percent Auto 1.3 % (0.0-7.0); Hematocrit* 45.8 % (37.0-53.0); Hemoglobin* 15.2 gm/dL (13.5-17.5); Lymphocytes Absolute Auto 3.24 K/uL (0.90-2.90); Lymphocytes Percent Auto 41.5 % (20-44); Mean Corpuscular HGB Conc 33 gm/dL (32-36); Mean Corpuscular Hemoglobin 32 pg (26-34); Mean Corpuscular Volume 95 fL (80-100); Monocytes Percent Auto 7.8 % (0.0-11.0); Neutrophils Absolute Auto 3.84 K/uL (1.7-7.0); Neutrophils Percent Auto 49.1 % (42.0-72.0); Platelet Count* 309 K/uL (140-440); Red Blood Count* 4.83 m/uL (4.30-5.90); White Blood Count* 7.81 K/uL (4.50-11.00)
[2024-05-22 11:29] LABS: Amphetamine Screen Urine POSITIVE (Negative); Barbiturate Screen Urine Negative (Negative); Benzodiazepines Screen Urine Negative (Negative); Cannabinoid Screen Urine POSITIVE (Negative); Cocaine Screen Urine Negative (Negative); Methadone Screen Urine Negative (Negative); Methamphetamines Screen Urine Negative (Negative); Opiate Screen Urine POSITIVE (Negative); Oxycodone Screen Urine Negative (Negative); Phencyclidine Screen Urine Negative (Negative); Slide Review Reflex No; Tricyclic Antidepressant Urine Negative (Negative)
[2024-05-22 11:48] LABS: Albumin* 4.7 g/dL (3.3-5.0); Chloride* 103 mmol/L (96-114); Sodium* 139 mmol/L (135-149)
[2024-05-22 11:50] LABS: Anion Gap 10 mEq/L (7-15); Aspartate Amino Transferase* 22 U/L (12-35); Bilirubin Total* 0.5 mg/dL (0.1-1.5); Carbon Dioxide* 26 mmol/L (20-32); Creatinine* 0.9 mg/dL (0.5-1.5); Estimated Glomerular Filt Rate 105 ml/min; Total Protein* 7.6 g/dL (6.0-8.3)
[2024-05-22 11:51] LABS: Alanine Aminotransferase* 20 U/L (4-50); Alkaline Phosphatase* 53 U/L (40-150); Blood Urea Nitrogen* 13 mg/dL (5-24); Calcium* 9.5 mg/dL (8.4-10.6); Glucose* 101 mg/dL (60-115)
[2024-05-22 13:00] LABS: Ammonia* 17.7 umol/L (13.1-30.0)
[2024-05-24 13:31] LABS: Sex Hormone Binding Globulin 37 nmol/L (17-56); Testosterone, Adult Male 301 ng/dL (300-890); Testosterone, Free Calculation 51 pg/mL (47-244); Testosterone, Percentage Free 1.7 % (1.6-2.9)
[2024-05-24 15:04] LABS: Valproic Acid, Free <7 ug/mL (7-23); Valproic Acid, Total 45 ug/mL (50-125)
== END 2024-05-22 10:49 | disposition home or self-care (01) ==
LOC: LAB 10:50
PROVIDERS: PCP Family Medicine; Visit Provider Nurse Practitioner
DX: F43.10 Post-traumatic stress disorder, unspecified (principal); F41.9 Anxiety disorder, unspecified; F06.34 Mood disorder due to known physiological condition with mixed features
CPT/HCPCS: 36415; 80053; 80164; 80165; 80306; 82140; 84270; 84402; 84403; 85025

== ENCOUNTER 2024-11-06 08:00 | Outpatient (CLI) | payer OTHER, SELFPAY ==
[2024-11-06] MEDS: REGADENOSON 0.4 MG/5 ML SYRINGE IVP (09:47)
[2024-11-06 10:03] VITALS: BP 138/72; PULSE 92; RESP 20
--- NOTE | 2024-11-06 10:17 | W.PM.STED ---
Stress Test Note Date Date Seen: 11/06/24 Date of test: 11/06/24 Providers Primary care provider: Dread Reyes Stress test physician: Mai Arzola Stress Test Note Stress test ordered: Lexiscan Indication for test: Chest pain Stress test medicine: Lexiscan Results discussion: Resting EKG: Sinus rhythm, 84 beats per minute. Resting blood pressure: 126/82 Stress test: Patient is consented on ordered stress test of Lexiscan and agrees to proceed. Walking Lexiscan protocol followed. Patient tolerated this well. He had some mild shortness of breath with injection of the regadenoson which resolved. He had no chest pain, no arrhythmia, no diagnostic ischemia noted on EKG monitoring. He maintained his blood pressure. Awaiting nuclear medicine images to couple this for a full formal diagnostic. Impression: Subjectively negative, objectively negative EKG portion of this Lexiscan. Follow up suggested: Patient is discharged in stable condition, will have his post-stress images obtained. He will await notification from Dr. Reyes once a formal report is generated after reading of the nuclear medicine images.
== END 2024-11-06 08:01 | disposition home or self-care (01) ==
LOC: STRESS 08:01
PROVIDERS: PCP Family Medicine; Visit Provider Family Medicine
DX: R07.9 Chest pain, unspecified (principal)
CPT/HCPCS: 78452; 93016; 93017; A9500; J2785

== ENCOUNTER 2025-02-28 08:10 | Outpatient (CLI) | payer OTHER, SELFPAY | END 2025-02-28 08:11 | disposition home or self-care (01) | LOC: FBOREF 08:11 | PROVIDERS: PCP Family Medicine; Visit Provider Family Medicine | DX: R79.89 Other specified abnormal findings of blood chemistry (principal) | CPT/HCPCS: 84403 ==